=== PATIENT | female | born 1945 | race Caucasian/White ===

== ENCOUNTER 2016-08-29 00:22 | Observation (INO) | payer MEDICARE ==
--- OUTSIDE RECORDS SUMMARY | 2016-08-29 00:55 | XMS REPORT | Continuity of Care Document ---
:1945 Author Organization [facility] ([facility]) Address [address] [place] [address] Phone [phone] Care Team Providers Name Role Phone Franca Massey Primary Care Provider [phone] Source Comments This disclosure is being made pursuant to the Care Everywhere program, applicable federal and state laws, and may not contain all informaitonavailable regarding this patient.[facility] ([facility]) Active Allergies and Adverse Reactions Allergen Noted Date Severity Reactions Comments Minocycline 07/17/2015 OTHER Leaves black spots on her lips Current Medications Prescription Sig. Disp. Refills Start Date End Date Status levothyroxine 50 mcg Take 50 mcg by Active tablet mouth every morning before breakfast. omeprazole 40 mg enteric Take 40 mg by Active coated capsule mouth 2 times daily. oxybutynin 10 mg CR Take 10 mg by Active tablet mouth daily simvastatin 10 mg tablet Take 10 mg by Active mouth every evening aspirin 81 mg EC tablet Take 81 mg by Active mouth daily ferrous sulfate 325 mg Take 65 mg by Active (65 mg iron) tablet mouth 2 times daily. probiotic 20 billion cell Take 1 capsule Active capsule by mouth daily polyethylene glycol 3350 Take 17 g by Active 17 gram packet mouth daily as needed polyethylene glycol 3350 Take 17 g by Active (MIRALAX) 17 gram/dose mouth as powder needed. amLODIPine 5 mg tablet Take 5 mg by Active mouth daily. loperamide 2 mg capsule Take 2 mg by Active mouth as needed. hydroxychloroquine 200 mg Take 1.5 135 tablet 1 06/25/2016 Active tablet tablets (300 mg total) by mouth daily. 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 -low BP while on JADON inhibitor -Calcinosis left volar arm -Raynaud phenomenon on amlodipine -Esophageal dysmotility seen by GI at [facility] 2005 and most recently at the [facility] -Sclerodactyly - was recommended physical therapy at initial diagnosis but has not done any PT treatments. 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 -Pre-[facility] work-up and treatment ~02/27/2015 by Bharati Coffey -02/2015 [place] dermatology biopsy (read at [facility]) showing [id number]: skin, right pretibial region, punch biopsies (x2): Features consistent with nodular amyloidosis with associated focal osteoma cutis. -ANNA positive 1:640 (centromere pattern) -SPEP and UPEP: no apparent monoclonal spikes -Negative SS-A, SS-B. Scl-70, anit-kelsey, anti-madi 1, dsDNA, U1RNP antibodies. -LFT, CMP, BMP - within normal limits from 02/27/15 -TSH 4.02 (elevated) with free T4 0.88 (slightly low; normal starts at 0.89) -CBC: WBC 4.1 (low), Hgb normal 13.7, normal plt 204K -UA normal without proteinuria but showed 3+ leuk esterase -> patient treated with cipro. -Intralesional Kenalog injections with some improvement Carotid artery occlusion 08/15/2014 Cholesterol depletion 06/21/2013 Most Recent Encounters Date Type Specialty Providers Description 07/23/2016 Office Visit Med Rheumatology Default, Other Chief Comp: Patient Billg - Defo Reported Reason For Hieu, Visit Brayan Jesus MD 07/13/2016 Nurse Triage Med GI/Hepatology Leonor Vernon, Chief Comp: Post -op RN Follow-up Call 07/10/2016 [facility], Dx: Limited systemic Encounter MD Nilesh sclerosis Rita Conde MD 06/25/2016 Office Visit Pathology Maddi Rivera Chief Comp: Patient MD Ann Marie Reported Reason For Lab Services, Visit Pfp 06/25/2016 Office Visit Dermatology Maddi Rivera Dx: Raynaud's disease MD Ann Marie without gangrene (Primary Dx) 06/15/2016 Office Visit Heart and Vascular Kailee Casas Dx: At risk for MD Shon cardiac dysfunction (Primary Dx) 06/15/2016 Surgery Cardiology Demetroulis, Right Heart Mariangel Menendez MD Catheterization 06/02/2016 Office Visit Med Rheumatology Default, Other Dx: CREST syndrome Billg - Defo (Primary Dx) Brayan Hagen MD [place], MD Carlos Alberto Ocampo Petar, MD Immunizations Name Dates Previously Given Next Due Influenza, unspecified 04/17/2016 Social History Tobacco Use Types Packs/Day Years Used Date Former Smoker Cigarettes 0.25 Quit: 05/24/1981 Smokeless Tobacco: Never Used Tobacco Cessation:Counseling Given: Yes Comments: Alcohol Use Drinks/Week oz/Week Comments No Last Filed Vital Signs Vital Sign Reading Time Taken Blood Pressure 144/61 07/10/2016 11:32 AM WOOL SHEARING SUPERVISOR Pulse 69 07/10/2016 9:18 AM WOOL SHEARING SUPERVISOR Temperature 36.7 C (98.1 F) 07/10/2016 9:18 AM WOOL SHEARING SUPERVISOR Respiratory Rate 16 07/10/2016 11:32 AM WOOL SHEARING SUPERVISOR Height 1.575 m (5' 2.01") 06/15/2016 10:45 AM WOOL SHEARING SUPERVISOR Weight 46.499 kg (102 lb 8.2 oz) 06/15/2016 10:45 AM WOOL SHEARING SUPERVISOR Body Mass Index 18.74 06/15/2016 10:45 AM WOOL SHEARING SUPERVISOR Oxygen Saturation 98% 07/10/2016 11:32 AM WOOL SHEARING SUPERVISOR Plan of Care Date Type Specialty Providers Description 10/01/2016 Appointment Dermatology Maddi Rivera MD Chief Comp: Patient [address] [place] [address] Visit [phone] (Fax) 01/05/2017 Appointment Med Rheumatology Maynor Carcamo MD Chief Comp: Patient [address] [place] [address] Visit [phone] (Fax) Health Maintenance Due Date Last Done Comments Hepatitis B Vaccine (1 of 3 - Primary 1945 Series) Tdap Vaccine 1955 Lipid Disorder Screening 1962 Td Vaccine 1962 Mammogram 1984 Zoster Vaccine 2004 Osteoporosis Screening (DXA Bone Density) 2009 Pneumococcal Vaccine (1 of 2 - PCV13) 2009 Colonoscopy 11/17/2015 11/16/2005, 07/28/2004 Influenza Vaccine: Seasonal Completed 04/17/2016 Procedures from Last 3 Months Procedure Name Priority Date/Time Associated Comments Diagnosis ABSTRACTED BY Routine 07/15/2016 8:01 AM Limited systemic Results for this BILLING STAFF - NW WOOL SHEARING SUPERVISOR sclerosis procedure are in the results section. Results from Last 3 Months OTHER PROCEDURE (07/15/2016 8:01 AM) Rita Shi MD 07/15/20168:01 AM High Resolution Esophageal Manometry Esophageal Manometry/HREPT Procedure Note Procedure Date: 07/10/2016 Operation/Procedure: Esophageal Manometry/High Resolution Esophageal Pressure Topography (HREPT) Indications: 100 lb weight loss, dysphagia; scleroderma; nodular cutaneous amyloidosis. Previous esophageal surgery: unknown Endoscopic findings/date: 07/10/2016, Schatzki's B-ring at 34 cm; widely patent. Patulous GEJ. Free reflux of solid contents and bilious liquids. Stasis; large amount of liquid and solid in dependent distal esophagus. Macerated esophageal mucosa. Attending Staff: Gabi Conde MD Referring Physician: Aravind Oneill MD Description of Operation/Procedure: After an overnight fast, and calibration of the manometry system and application of 2% lidocaine gel to the nares, a 4 mm solid state manometry catheter was introduced through the nares into the esophagus and stomach. The catheter has 36 pressure channels spaced 1 cm apart, that create pressure image from pharynx to stomach The catheter was advanced until the distal 5 cm was in the stomach. Pressure sensors were located simultaneously across the UES, esophageal body and lower esophageal sphincter. The patient was placed in a 30 degree supine position. The probe was fixed to the nose and remained stationary throughout the recording. The recordings were made using [employer] Manoscan 360 high resolution manometry software. This software was used for graphic display and analysis and the tracing was also analyzed manually. After a rest period, and landmark evaluation: 10 wet swallows-Supine Any symptoms were recorded. After test completion, the probe was removed RESULTS: Esophagogastric Junction Assembly traversed diaphragm?: yes Morphology: Type I, PIP location: 44cm EGJ pressure (referenced to intragastric pressure): Expiratory: 5mmHgInspiratory: 12 mmHgMean 9 mmHg Relaxation: Mean IRP: 3.8mmHg Peristalsis SW 1 SW 2 SW 3 SW 4 SW 5 SW 6 SW 7 SW 8 SW 9 SW 10 IRP 4.4 3.4 4.2 5 2.5 2.7 5.8 4.7 3.8 1.8 DCI 0 0 0 0 0 0 0 0 0 0 DL NA NA NA NA NA NA NA NA NA NA Contractile Vigor F F F F F F F F F F Contraction Pattern $ NA NA NA NA NA NA NA NA NA NA Intrabolus Pressure Pattern * NA NA NA NA NA NA NA NA NA NA N=normal; F=failed (<100mmHg*s*cm); W=weak (<450mmHg*s*cm); H=hypercontractile (>=8000mmHg*s*cm) $ (need to be DCI>450mmHg*s*cm) I=intact; Fr=fragmented; P=premature * N=normal; CP=compartmentalized pressurization; PEP= panesophageal pressurization; EGJP=EGJ pressurization IMPRESSION Hypotensive LES with normal relaxation and absent peristalsis - consistent with "scleroderma esophagus". Signature Demetrius Olvera MD Fellow Physician Department of Internal Medicine Division of Gastroenterology and Hepatology Staff Comment Teaching Statement I have personally reviewed and interpreted the results of the exam,and agree with the findings and plan as documented. Gabi Dove MD Clinical Grease Refiner Operator Division of Gastroenterology-Hepatology Department of Internal Medicine [facility] SURGICAL PATHOLOGY EXAM (07/10/2016 10:53 AM) Component Value Range Case Report Surgical Pathology Case: [id number] Authorizing Provider:Nilesh Schmidt MDCollected: 07/10/2016 10:53 AM Ordering Location: [facility] Received: 07/10/2016 01:35 PM Diseases: Procedure Unit Pathologist: Yariel Pringle MD Specimens: A) - Esophagus, ESOPH B) - Stomach, Specify, GASTRIC C) - Small bowel, Specify Site, DUODENAL Diagnosis A.Esophagus, biopsy: Shyla esophagitis. PAS-D special stain highlights the fungal elements. B.Stomach, biopsy: Oxyntic and antral mucosa with mild reactive gastropathy. C.Duodenum, biopsy: Duodenal mucosa with focal non-specific duodenitis. I have personally reviewed this case and edited the report as necessary. Clinical Information 71 year old woman with scleroderma and nodular cutaneous amyloidosis.100 lb weight loss, dysphagia, diarrhea.EGD with solid and liquid contents in dependent portions of distal esophagus, stoma ch and duodenum; macerated appearing distal esophageal mucosa, nondistensible stomach, absent duodenal folds. 1.Distal esophagus; random mucosal biopsies. 2.Stomach; random biopsies. 3.Duodenum; random biopsies. Gross Description A.Received in formalin, in a container labeled [facility], hospital number, and "ESOPH", are four white-roblero soft tissue fragments, 0.2 to 0.5 cm in greatest dimension. Submitted in toto inA1. BNS/cja B.Received in formalin, in a container labeled [facility], hospital number, and "GASTRIC", are four roblero-pinksoft tissue fragments, 0.3 to 0.5 cm in greatest dimension. Submitted in toto in B1. BNS/cja C.Received in formalin, in a container labeled [facility], [facility] number, and "DUODENAL", are four roblero-pinksoft tissue fragments, 0.2 to 0.5 cm in greatest dimension. Submitted in toto in C1. BNS/cja Microscopic Description A-C. Microscopic examination performed and supports the diagnosis. Performed by:Yovani Haywood, , R3 I have personally reviewed this case and edited the report as necessary. Yariel Pringle MD Specimen Tissue - Small bowel, Specify Site ESOPHAGEAL HIGH RESOLUTION PRESSURE MANOMETRY BY UPPER ENDOSCOPY (07/10/2016 10: 40 AM) Nilesh Butterfield MD 07/10/2016 10:40 AM ESOPHAGEAL HIGH RESOLUTION PRESSURE MANOMETRY BY UPPER ENDOSCOPY GI/Hepatology Brief Procedure Note Date: 07/10/2016 Procedure: EGD Pre-procedure Diagnosis: 100 lb weight loss, dysphagia, diarrhea; scleroderma; nodular cutaneous amyloidosis. Proceduralist: Roxana. Anesthesia: versed 3 mg IV, fentanyl 25 mcg IV. The procedure sedation was given under my direction from 07/10/16 10:04 AM to 07/10/16 10:22 AM. Biopsy: Random duodenum, gastric and esophagus. Blood Loss: None. Post-procedure Diagnosis: 1.Esophagus: Schatzki's B-ring at 34 cm; widely patent. Patulous GEJ. Free reflux of solid contents and bilious liquids. Stasis; large amount of liquid and solid in dependent distal esophagus. Macerated esophageal mucosa. 2.Stomach: Large amount of retained solids and liquids, exam very limited. Erythematous gastric mucosa. Stomach did not distend with air insufflation. J-shaped stomach. Patent pylorus. 3.Duodenum: Diminished, scalloped duodenal folds. Linear erythema of scalloped folds. Post-procedure Plan: 1.High resolution pressure manometry now. 2.Follow-up in GI Clinic with Dr. Brian Huffman. Nilesh Schmidt MD TOTAL PROTEIN (06/25/2016 3:07 PM) Component Value Range Total Protein 6.0 6.0-8.0 g/dL Specimen Blood SERUM PROTEIN ELECTROPHORESIS (06/25/2016 3:07 PM) Component Value Range SPEP-Total Protein 6.0 6.0-8.0 g/dL SPEP-Albumin 3.3(L) 3.7-5.0 g/dL SPEP-Alpha1 Fraction 0.3 0.3-0.5 g/dL SPEP-Alpha2 Fraction 0.6 0.4-0.6 g/dL SPEP-Beta1 Fraction 0.4 g/dL SPEP-Beta2 Fraction 0.3 g/dL SPEP-Beta Fraction Total 0.7 0.6-0.9 g/dL SPEP-Gamma Fraction 1.1 0.5-1.3 g/dL SPEP-Monoclonal Protein 0.0 g/dL SPEP-Path Interp See TextComment: A monoclonal protein is not identified by serum protein electrophoresis. Gary Warner D.O., R2 Pathology Resident I have personally reviewed the patient studies and I agree with the above report. Oscar Orlando M.D, Ph.D., Oil Change Technician, Clinical Chemistry Laboratory, [facility] Specimen Blood CARDIAC CATHETERIZATION (06/15/2016 12:05 PM) Narrative Normal pulmonary arterial pressures Normal LV and RV filling pressures Normal cardiac output ECG - EKG 12 LEAD (06/15/2016 8:48 AM) Component Value Range ECG SEVERITY - BORDERLINE ECG - VENT. RATE 54 bpm RR 1111 ms P-R INTERVAL 132 ms QRSD INTERVAL 82 ms QT INTERVAL 428 ms QTC INTERVAL 406 ms P AXIS 70 degrees QRS AXIS 37 degrees T WAVE AXIS -10 degrees REPORT SINUS RHYTHM [Remains] BORDERLINE T ABNORMALITIES, INFERIOR LEADS [Insig. Chg.] NO SIGNIFICANT CHANGE Interpreting Physician: Jhonathan Gu MD EXTERNAL CBC (06/10/2016) Component Value Range Ext WBC Count 5 K/MM3 Ext RBC Count 3.7 M/MM3 Ext Hemoglobin 11.4 G/DL Ext Hematocrit 36.4 % Ext MCV (Mean Corpuscular Volume) 98.4 Ext MCH-Mean Corpuscular Hemoglobin 30.8 Ext MCHC-Mean Corpuscular Hgb Concentration 31.3 Ext Platelet Count 211 1-1001 K/MM3 Ext RDW-Red Cell Distribution Width 14.1 EXTERNAL CHEM 6 (06/10/2016) Component Value Range Ext Creatinine 0.60(A) 0.7-1.4 MG/DL Ext BUN 14 10-20 MG/DL Ext CO2 26.3 24-32 MEQ/L Ext Chloride 106 95-107 MEQ/L Ext Potassium 3.6 3.5-5.0 MEQ/L Ext Sodium 140 135-145 MEQ/L
[2016-08-29 01:07] LABS: Hematocrit 39.4 % (37.0-47.0); Hemoglobin 13.2 gm/dL (12.5-16.0); Mean Cell Volume 92.9 fl (78-100); Mean Corpuscular Hemoglobin 31.1 pg (27-31); Mean Corpuscular Hgb Conc 33.5 g/dl (32-36); Mean Platelet Volume 9.1 fl (6.0-9.5); Neutrophil # 9.8 K/mm3 (1.3-6.0); Neutrophil % 87.3 % (42-75.0); Platelet Count 226 K/mm3 (150-450); Red Blood Count 4.24 M/mm3 (4.2-5.4); Red Cell Distribution Width 12.8 % (11.5-14.0); White Blood Count 11.3 K/mm3 (4.0-10.5)
[2016-08-29] MEDS ORDERED: ALBUTEROL SULFATE/IPRATROPIUM 3 ML NEBU IH ONE (01:07)
[2016-08-29 01:21] LABS: Albumin * 3.9 gm/dl (3.4-5.0); Anion Gap 13.1 mmol/L (6.8-13.8); BUN/Creatinine Ratio 31.1 (9.0-21.6); Bilirubin, Total 0.4 mg/dL (0.0-1.1); Ca. Corrected For Albumin 9.4 mg/dL (8.4-10.2); Calcium * 9.6 mg/dL (7.9-10.9); Carbon Dioxide 28.1 mmol/L (24-32.6); Potassium 3.2 mmol/L (3.4-4.6); Total Protein 7.7 gm/dL (6.2-8.2)
[2016-08-29] MEDS ORDERED: NORMAL SALINE 1,000 ML IV ONE (02:43)
[2016-08-29] MEDS ORDERED: POTASSIUM CHLORIDE 100 ML IV ONE (02:45)
--- OUTSIDE RECORDS SUMMARY | 2016-08-29 02:56 | XMS REPORT | Continuity of Care Document ---
:1945 Author Organization [facility] ([facility]) Address [address] [place] [address] Phone [phone] Care Team Providers Name Role Phone Franca Massey Primary Care Provider [phone] Source Comments This disclosure is being made pursuant to the Care Everywhere program, applicable federal and state laws, and may not contain all informaitonavailable regarding this patient.[facility] ([facility]) Active Allergies and Adverse Reactions Allergen [...] followed most recently by GI at the [facility] but otherwise was not followed for this since 1992 when she was last seen by [facility] dermatology. -low BP while on JADON inhibitor -Calcinosis left volar arm -Raynaud phenomenon on amlodipine -Esophageal dysmotility seen by GI at [facility] 2005 and most recently at the [facility] -Sclerodactyly - was recommended physical therapy at initial diagnosis but has not done any PT treatments. 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 -Pre-[facility] work-up and treatment ~02/27/2015 by Bharati Coffey -02/2015 [place] dermatology biopsy (read at [facility]) showing [id number]: skin, right pretibial region, punch biopsies (x2): [...] Comp: Post -op RN Follow-up Call 07/10/2016 [facility] Med GI/Hepatology [facility], Dx: Limited systemic Encounter MD Nilesh sclerosis [...] Taken Blood Pressure 144/61 07/10/2016 11:32 AM SHIPPING ROOM SUPERVISOR Pulse 69 07/10/2016 9:18 AM SHIPPING ROOM SUPERVISOR Temperature 36.7 C (98.1 F) 07/10/2016 9:18 AM SHIPPING ROOM SUPERVISOR Respiratory Rate 16 07/10/2016 11:32 AM SHIPPING ROOM SUPERVISOR Height 1.575 m (5' 2.01") 06/15/2016 10:45 AM SHIPPING ROOM SUPERVISOR Weight 46.499 kg (102 lb 8.2 oz) 06/15/2016 10:45 AM SHIPPING ROOM SUPERVISOR Body Mass Index 18.74 06/15/2016 10:45 AM SHIPPING ROOM SUPERVISOR Oxygen Saturation 98% 07/10/2016 11:32 AM SHIPPING ROOM SUPERVISOR Plan of Care Date Type Specialty Providers Description 10/01/2016 Appointment Dermatology Maddi Rivera MD Chief Comp: Patient [address] [place] [address] Visit [phone] (Fax) 01/05/2017 Appointment Med Rheumatology Maynor Carcamo MD Chief Comp: Patient [address] [place] [address] Visit [phone] (Fax) Health Maintenance Due Date Last Done [...] Results for this BILLING STAFF - NW SHIPPING ROOM SUPERVISOR sclerosis procedure are in the results [...] the recording. The recordings were made using [employer] Manoscan 360 high resolution manometry software. This [...] plan as documented. Gabi Dove MD Clinical Roller Machine Operator Division of Gastroenterology-Hepatology Department of Internal Medicine [facility] SURGICAL PATHOLOGY EXAM (07/10/2016 10:53 AM) Component Value Range Case Report Surgical Pathology Case: [id number] Authorizing Provider:Nilesh Schmidt MDCollected: 07/10/2016 10:53 AM Ordering Location: [facility] Received: 07/10/2016 01:35 PM Diseases: Procedure Unit [...] A.Received in formalin, in a container labeled [facility], hospital number, and "ESOPH", are four white-roblero soft tissue fragments, 0.2 to 0.5 cm in greatest dimension. Submitted in toto inA1. BNS/cja B.Received in formalin, in a container labeled [facility], hospital number, and "GASTRIC", are four roblero-pinksoft tissue fragments, 0.3 to 0.5 cm in greatest dimension. Submitted in toto in B1. BNS/cja C.Received in formalin, in a container labeled [facility], [facility] number, and "DUODENAL", are four roblero-pinksoft tissue [...] the above report. Oscar Orlando M.D, Ph.D., Tabber, Clinical Chemistry Laboratory, [facility] Specimen Blood CARDIAC CATHETERIZATION (06/15/2016 12:05 PM) [...]
--- NOTE | 2016-08-29 03:01 | ERNOTE ---
Medical Problem HPI - Narrative Date of Service: 08/29/16 - General Chief Complaint: Nausea/Vomiting Time Seen by Provider: 08/29/16 00:30 Source: patient, family Exam Limitations: no limitations - Immun/Allergies/Home Medications Immunizations: IMMUNIZATION HX Immunizations Up to Date Yes History of Influenza Vaccine Yes Hx Pneumococcal Vaccination Yes Allergies/Adverse Reactions: Allergies minocycline Adverse Reaction (Severe, Verified 04/19/16 09:50) Black spots inside mouth Home Medications: HOME MEDICATIONS Aspirin [Aspirin EC] 81 mg PO DAILY 04/16/16 [Last Taken Unknown] Ferrous Sulfate [Iron] 65 mg PO BID 04/16/16 [Last Taken Unknown] Hydroxychloroquine Sulfate [Plaquenil] 300 mg PO DAILY 04/16/16 [Last Taken Unknown] Levothyroxine Sodium [Synthroid] 88 mcg PO DAILY 04/16/16 [Last Taken Unknown] Loperamide HCl [Imodium] 2 mg PO QID PRN 04/16/16 [Last Taken Unknown] Omeprazole 40 mg PO BID 04/16/16 [Last Taken Unknown] Oxybutynin Chloride [Ditropan Xl] 10 mg PO DAILY 04/16/16 [Last Taken Unknown] Saccharomyces Boulardii [Probiotic] 250 mg PO DAILY 04/16/16 [Last Taken Unknown ] Simvastatin [Zocor] 10 mg PO DAILY 04/16/16 [Last Taken Unknown] amLODIPine BESYLATE [Norvasc] 5 mg PO DAILY 04/16/16 [Last Taken Unknown] Polyethylene Glycol 3350 [Miralax] 17 gm PO DAILY PRN 08/29/16 [Last Taken Unknown] - Pain Score Pain Score #1 Pain Score: 5 - History of Present History Narrative: Patient is a 71 yo female here with family for evaluation of vomiting, onset earlier today. 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 last one was about 2 months ago, patient was admitted here. Patient denies fevers, chills, melena. Patient feels like she did last visit. Date (Duration): 08/28/16 Time (Timing): 08:00 Timing: constant, getting worse Severity: moderate Modifying Factors - (Improves): Present: other - nothing really improves vomiting and abd pain Modifying Factors - (Worsens): Present: eating Review of Systems - Narrative Narrative: Patient reports vomiting large amounts of liquids. Patient will be started on IV NORMAL SALINE AND POTASSIUM RIDER. Family informed of need for ct scan. - Review of Systems Constitutional: Present: recent illness, fever, weakness, malaise EYE: Present: no symptoms reported ENT: Present: no symptoms reported Respiratory: Present: no symptoms reported. Absent: orthopnea, wheezing Cardiology: Present: no symptoms reported Gastrointestinal/Abdominal: Present: no symptoms reported Genitourinary: Present: no symptoms reported Musculoskeletal: Present: no symptoms reported Skin: Present: no symptoms reported Neurological: Present: no symptoms reported Endocrine: Present: no symptoms reported Hematologic/Lymphatic: Present: no symptoms reported Psych: Present: no symptoms reported All Other Systems: All systems neg except as marked - Patient's Past Medical History Patient History - Medical: Anemia, GERD, Hypothyroidism, Other Patient History - Cardiac/Respiratory: Hyperlipidemia Patient History - Cancer: Breast Patient History - Surgical Procedures: Cancer Surgery, Other Patient History - Other: None - Family History Sister Family History - Medical: Diabetes Type 2 Insulin Dependent, Hypothyroidism Family History - Cardiac/Respiratory: CVA/Stroke Mother Family History - Cardiac/Respiratory: Coronary Heart Disease - Social History Living Situations: spouse Abuse History: No History of abuse Psych History: No pertinent hx Does anyone smoke in the home?: No Smoking Status: Never smoker Alcohol Use: none Drug Use: none - Immunizations Immunizations Up to Date: Yes Hx Pneumococcal Vaccination: Yes History of Influenza Vaccine: Yes Physical Exam - Physical Exam General Appearance: Present: alert, cachetic, irritable Eye Exam: Normal inspection: bilateral, PERRL: bilateral, EOMI: bilateral Ears, Nose, Throat: Present: normal ENT inspection Neck: Present: normal inspection, nontender Respiratory: Present: no respiratory distress, normal breath sounds, no accessory muscle use, chest nontender Peripheral Pulses: N=norm/S=strong/W=weak/B=bound/A=absent: Carotid (R): Normal , Carotid (L): Normal Gastrointestinal/Abdominal: Present: nontender, soft, abnormal bowel sounds, distended. Absent: guarding Rectal Exam: Present: other - very little stool in the rectum, estella consistency estella colored, heme neg per hemocult Back Exam: Present: normal inspection, normal range of motion, CVA tenderness (R ), CVA tenderness (L) Extremity Exam: Present: normal inspection Neurological Exam: Present: alert, oriented, normal mood/affect, no motor/ sensory deficits DTR: N=norm/NB=norm/brisk/A=abs/DD=dull/dimin/HC=hyperactive: Knee (R): Normal, Ankle (L): Normal Skin Exam: Present: normal color, warm/dry Lymphatic Exam: Present: no adenopathy Pelvic Exam: Present: deferred ED Progress - Date and Time Seen: Date and Time: Patient seen on arrival 08/29/16 03:42 Patient stable for admission to Med Surg for Observation 08/29/16 03:48 - Vital Signs Patient's Vital Signs:: I have reviewed the patient's vital signs. Vital Signs: Vital Signs 08/29/16 08/29/16 00:22 00:47 Temperature 36.4 C L Pulse Rate 74 67 Respiratory 14 14 Rate Blood Pressure 140/84 O2 Sat by Pulse 100 Oximetry - EKG EKG: NSR EKG read: Reviewed by me - X-Ray X-Ray #1 X-Ray: no acute cardiopulm disease noted Interpretation: Reviewed by me X-Ray #3 X-Ray: abdomen - notable distended bowel ort - Progress/Reassessment Chief Complaint: Nausea/Vomiting Progress:: Improved Plan - Plan Plan: Called La[facility] Peguero to admit, case was discussed with Dr. Castillo, we can hold off on CT of abdomen and pelvis. Patient's radiology report reads: Lung bases are clear, Moderat to severe stool retention. Air-filled distended loops of bowel noted with scattered air fluid levels. Po pneumoperitoneum. No signs of mass or mass effect. No obvious urolithiasis. Degernative changes. Impression: stool retention with a non specific bowel gas patterns. Report by Dr. Ray Monsivais DO. Discussed case with Laury Peguero: CT report sent to floor: no transition point is identified, there are loops of dilated small bowel : small bowel obstruction, no pneumoperitoneum, no free air. Departure - Departure Clinical Impression: abdominal [place] , Hypokalemia Bowel obstruction Qualifiers: Intestinal obstruction type: unspecified ileus Qualified Code(s): K56.7 - Ileus , unspecified Condition: Fair
[2016-08-29] MEDS ORDERED: ONDANSETRON HCL/PF 2 MG/ML VIAL IV PRN (04:51)
--- NOTE | 2016-08-29 04:53 | HP ---
Chief Complaint - Chief Complaint Date of Service: 08/29/16 Time of Service: 04:53 Chief Complaint: Abdominal Pain, N/V. Source of HPI- Pt; reliable, ER provider notes. History of Present Illness: Ms. Yousif is a 71-yr-old [place] pt of H of : Anemia, Ayon's Esophagus, Breast Ca, CAD,CREST, Depression, GERD, HLD, HTN, Hiatal Hernia & Rectal Prolapse. Pt came to the ED tonight following nausea and vomiting episode that had begun at 6.00 pm on 08/28. She states that she vomited about 5-6 times prior to choosing to come to the [facility] ER. Her last good meal was around lunch time on 08/28. She reports noting undigested food contents with the first vomitus. The n/v was accompanied with Upper abdominal pain. She report having lose to watery bowel movements. Off note, she was admitted on 04/16/16 for similar symptoms and was found to have SBO, and managed with conservative treatment. Past abdominal surgery shows she had rectal surgery in 2003 for rectal prolapse. During evaluation at ED [facility], the CT of the abdomen obtained showed SBO. She will need to be admitted inpatient for a minimum of two midnights or more due to complications that can arise with SBO such as bowel necrosis or perforation and in the event that she may need surgical intervention. - Patient's Past Medical History Patient History - Medical: Anemia, Depression, GERD, Hypothyroidism, Other - CREST Syndrome, Patient History - Cardiac/Respiratory: Hyperlipidemia Patient History - Cancer: Breast Patient History - Surgical Procedures: Cancer Surgery, Other Patient History - Other: None - Family History Sister Family History - Medical: Diabetes Type 2 Insulin Dependent, Hypothyroidism Family History - Cardiac/Respiratory: CVA/Stroke Father Family History - Medical: Mother Family History - Medical: Family History - Cardiac/Respiratory: Coronary Heart Disease - Social History Living Situations: spouse Abuse History: No History of abuse Psych History: No pertinent hx Does anyone smoke in the home?: No Smoking Status: Never smoker Have you smoked in the past 12 months: No Alcohol Use: none Drug Use: none - Immunizations Immunizations Up to Date: Yes Hx Pneumococcal Vaccination: Yes History of Influenza Vaccine: Yes Review Of Systems (GEN) - Review of Systems Generalized/Overall Review: Present: Weakness. Absent: Chills, Fever, Malaise, Diaphoresis, Weight loss EENTM: Absent: Double Vision, Nose Congestion, Throat Swelling Respiratory: Absent: Cough, Shortness of Breath Cardiac: Absent: Chest Pain, Edema, Palpitations Abdominal: Present: Nausea, Vomiting, Abdominal Pain, Constipation, Diarrhea. Absent: Bright blood from rectum Genitourinary: Absent: Burning, Itching, Urgency Musculoskeletal: Absent: Joint Pain, Back Pain Neurological: Present: Weakness. Absent: Headache, Anxiety, Depressed Skin: Absent: Dryness, Lesions Endocrine: Present: Intolerance to Cold. Absent: Increased Thirst Misc: All systems neg except as marked Immunizations: IMMUNIZATION HX Immunizations Up to Date Yes History of Influenza Vaccine Yes Hx Pneumococcal Vaccination Yes Allergies/Adverse Reactions: Allergies Allergy/AdvReac Type Severity Reaction Status Date / Time minocycline AdvReac Severe Black Verified 04/19/16 09:50 spots inside mouth Home Medications: HOME MEDICATIONS Aspirin [Aspirin EC] 81 mg PO DAILY 04/16/16 [Last Taken Unknown] Ferrous Sulfate [Iron] 650 mg PO DAILY 04/16/16 [Last Taken Unknown] Hydroxychloroquine Sulfate [Plaquenil] 300 mg PO DAILY 04/16/16 [Last Taken Unknown] Levothyroxine Sodium [Synthroid] 88 mcg PO DAILY 04/16/16 [Last Taken Unknown] Loperamide HCl [Imodium] 2 mg PO QID PRN 04/16/16 [Last Taken Unknown] Omeprazole 40 mg PO BID 04/16/16 [Last Taken Unknown] Oxybutynin Chloride [Ditropan Xl] 10 mg PO BID 04/16/16 [Last Taken Unknown] Saccharomyces Boulardii [Probiotic] 250 mg PO DAILY 04/16/16 [Last Taken Unknown ] Simvastatin [Zocor] 10 mg PO DAILY 04/16/16 [Last Taken Unknown] amLODIPine BESYLATE [Norvasc] 5 mg PO DAILY 04/16/16 [Last Taken Unknown] Bifidobacterium Infantis [Align] 4 mg PO DAILY 08/29/16 [Last Taken Unknown] Fluticasone Propionate [Flonase] 2 spray NS DAILY 08/29/16 [Last Taken Unknown] Polyethylene Glycol 3350 [Miralax] 17 gm PO DAILY 08/29/16 [Last Taken Unknown] Exam - Exam Vital Signs: Vital Signs - Last Taken Temp 36.8 C 08/29/16 04:07 Pulse 76 08/29/16 04:07 Resp 18 08/29/16 04:07 BP 134/64 08/29/16 04:07 Pulse Ox 96 08/29/16 04:07 Constitutional: Present: Alert, Oriented x3, Mild distress ENT Exam: Present: normal ENT inspection, hearing grossly normal, dry mucous membranes. Absent: nasal congestion, nasal drainage Eye Exam: bilateral eye: normal inspection, PERRL Neck: Present: full range of motion, supple, normal inspection Back Exam: Present: no CVA tenderness Breasts: Present: Exam deferred Respiratory: Present: lungs clear, no accessory muscle use, No wheezing Cardiovascular/Chest: Present: regular rate, rhythm, no chest tenderness, no edema, no murmur Abdomen: Present: Normal bowel sounds, soft, tender - Upper abdomen /Rectal: Present: Exam deferred Extremity: Present: non-tender, normal inspection, no pedal edema Skin Exam: Present: warm/dry, no cyanosis Lymphatic: Present: no adenopathy Neurologic: Present: alert, normal mood/affect, oriented x 3, depressed affect. Absent: motor weakness Appearance: Present: appropriate appearance, appropriate insight Eye contact: Present: good eye contact, normal speech Thoughts: Present: normal thought pattern, no apparent hallucination Diagnostic Studies: Laboratory Results WBC 11.3 K/mm3 (4.0-10.5) H 08/29/16 00:34 RBC 4.24 M/mm3 (4.2-5.4) 08/29/16 00:34 Hgb 13.2 gm/dL (12.5-16.0) 08/29/16 00:34 Hct 39.4 % (37.0-47.0) 08/29/16 00:34 MCV 92.9 fl (78-100) 08/29/16 00:34 MCH 31.1 pg (27-31) H 08/29/16 00:34 MCHC 33.5 g/dl (32-36) 08/29/16 00:34 RDW 12.8 % (11.5-14.0) 08/29/16 00:34 Plt Count 226 K/mm3 (150-450) 08/29/16 00:34 MPV 9.1 fl (6.0-9.5) 08/29/16 00:34 Immature Gran % (Auto) 0.40 % (0.001-0.429) 08/29/16 00:34 Immature Gran # (Auto) 0.05 K/mm3 (0.000-0.0310) H 08/29/16 00:34 Neutrophils % 87.3 % (42-75.0) H 08/29/16 00:34 Lymphocytes % 9.2 % (20-51) L 08/29/16 00:34 Monocytes % 2.8 % (0.0-9) 08/29/16 00:34 Eosinophils % 0.0 % (0.0-3.0) 08/29/16 00:34 Basophils % 0.3 % (0.0-1.0) 08/29/16 00:34 Nucleated RBC % 0.0 k/mm3 (0-1) 08/29/16 00:34 Neutrophils # 9.8 K/mm3 (1.3-6.0) H 08/29/16 00:34 Lymphocytes # 1.0 k/mm3 (1.5-3.5) L 08/29/16 00:34 Monocytes # 0.3 k/mm3 (0.0-1.0) 08/29/16 00:34 Eosinophils # 0.0 k/mm3 (0.0-0.7) 08/29/16 00:34 Absolute Basophils 0.0 k/mm3 (0.0-0.1) 08/29/16 00:34 Sodium 140 mmol/L (132-142) 08/29/16 00:33 Plasma Sodium 140 mmol/L (130-142) 08/29/16 00:33 Potassium 3.2 mmol/L (3.4-4.6) L 08/29/16 00:33 Chloride 102 mmol/L (97-106) 08/29/16 00:33 Carbon Dioxide 28.1 mmol/L (24-32.6) 08/29/16 00:33 Anion Gap 13.1 mmol/L (6.8-13.8) 08/29/16 00:33 BUN 23 mg/dL (3-23) D 08/29/16 00:33 Creatinine 0.74 mg/dL (0.4-1.4) 08/29/16 00:33 Est GFR (Non-Af Amer) 82 mL/min (60-130) D 08/29/16 00:33 BUN/Creatinine Ratio 31.1 (9.0-21.6) H 08/29/16 00:33 Random Glucose 121 mg/dL (70-110) H 08/29/16 00:33 Calcium 9.6 mg/dL (7.9-10.9) 08/29/16 00:33 Calcium Adj for Albumin 9.4 mg/dL (8.4-10.2) 08/29/16 00:33 Total Bilirubin 0.4 mg/dL (0.0-1.1) 08/29/16 00:33 AST 30 U/L (0-48) 08/29/16 00:33 ALT 34 U/L (19-67) 08/29/16 00:33 Alkaline Phosphatase 107 U/L (50-170) 08/29/16 00:33 Total Protein 7.7 gm/dL (6.2-8.2) 08/29/16 00:33 Albumin 3.9 gm/dl (3.4-5.0) 08/29/16 00:33 Amylase 59 U/L (25-115) 08/29/16 00:33 Lipase 206 U/L (73-393) 08/29/16 00:33 Stool Occult Blood Negative 08/29/16 02:19 Assessment/Plan - Assessment/Plan (1) Small bowel obstruction Assessment: pt presented with nausea, vomiting, abdominal pain. She has no abd distention as such. However, CT showed SBO. I spoke with Dr. Castillo and is aware about pt's hospital admission. He is okay with managing the pt nonoperativley for now with: NG to LIS, NPO, Electrolyte replacement, antiemetic and pain mgt. He will examine pt this morning. CBC in am. Problem: Acute (2) Hypokalemia Assessment: Provide IVF replenishing with K. BMP in am. Problem: Acute (3) GERD (gastroesophageal reflux disease) Problem: Chronic (4) Depression Problem: Chronic
[2016-08-29] MEDS ORDERED: HYDROmorphone HCL 1 MG/ML DISP.SYRIN IV PRN (04:57)
[2016-08-29 05:18] LABS: Hematocrit 36.4 % (37.0-47.0); Hemoglobin 12.5 gm/dL (12.5-16.0); Mean Cell Volume 91.5 fl (78-100); Mean Corpuscular Hemoglobin 31.4 pg (27-31); Mean Corpuscular Hgb Conc 34.3 g/dl (32-36); Mean Platelet Volume 8.8 fl (6.0-9.5); Neutrophil # 9.9 K/mm3 (1.3-6.0); Neutrophil % 87.8 % (42-75.0); Platelet Count 197 K/mm3 (150-450); Red Blood Count 3.98 M/mm3 (4.2-5.4); Red Cell Distribution Width 12.6 % (11.5-14.0); White Blood Count 11.3 K/mm3 (4.0-10.5)
[2016-08-29 05:25] LABS: BUN/Creatinine Ratio 37.5 (9.0-21.6); Calcium * 8.8 mg/dL (7.9-10.9); Carbon Dioxide 26.2 mmol/L (24-32.6); Estimated Creat Clear 62.8; Potassium 3.2 mmol/L (3.4-4.6)
[2016-08-29] MEDS ORDERED: TETRACAINE/BENZOCAINE/BUTAMBEN 56 SPRAY BTL TP ONE (05:51)
[2016-08-29] MEDS ORDERED: TETRACAINE/BENZOCAINE/BUTAMBEN 20 SPRAY BTL TP ONE (05:52)
[2016-08-29] MEDS: POTASSIUM CHLORIDE 20 MEQ in DEXTROSE 5%-NORMAL SALINE 990 ML IV SCH (06:31)
[2016-08-29] MEDS: PANTOPRAZOLE SODIUM 40 MG in NORMAL SALINE 100 ML IV SCH ×2 (06:38→17:43)
[2016-08-29] MEDS: amLODIPine BESYLATE 5 MG TABLET PO SCH (08:28)
[2016-08-29] MEDS: HYDROXYCHLOROQUINE SULFATE 200 MG TABLET PO SCH (08:28)
[2016-08-29] MEDS: FLUTICASONE PROPIONATE 120 SPRAY INHALER NS SCH (08:32)
[2016-08-29 11:32] LABS: Urine Bilirubin Negative (NEGATIVE); Urine Blood Negative /ul (NEGATIVE); Urine Ketone Negative (NEGATIVE); Urine Nitrite Negative (NEGATIVE); Urine Protein 15 mg/dL (NEGATIVE); Urine Specific Gravity 1.025 SP.GR. (1.005-1.010); Urine Urobilinogen Normal (NORMAL); Urine pH 5.5 pH (5.0-7.0)
[2016-08-29 11:44] LABS: Urine Appearance Slightly Cloudy; Urine Color Yellow
[2016-08-29 11:45] LABS: Urine Bacteria 1+; Urine Hyaline Cast >25 /LPF; Urine RBC TRACE /hpf (0-5); Urine WBC 0-5 /hpf (0-5)
[2016-08-29] MEDS ORDERED: MINERAL OIL 1 ENEMA BTL RC ONE (13:04)
--- NOTE | 2016-08-29 13:21 | CONS ---
[facility] - General Date of Service: 08/29/16 Narrative: Ask to see this patient for a possible small bowel obstruction. Was admitted 5-6 months ago for a similar episode. Presented to ER with protracted episodes of nausea and vomiting yesterday. AXR showed stool retention with nonspecific bowel gas pattern. CT abd was a limited study. SBO could not be excluded. Today she has had six watery stools and is passing flatus. She has no abdominal pain and says her abdominal distention has resolved. Source: patient, RN/MD Exam Limitations: no limitations - History of Present Illness Allergies/Adverse Reactions: Allergies minocycline Adverse Reaction (Severe, Verified 04/19/16 09:50) Black spots inside mouth Home Medications: Home Medications Medication Instructions Recorded Last Taken Aspirin [Aspirin EC] 81 mg PO DAILY 04/16/16 Unknown Ferrous Sulfate [Iron] 650 mg PO DAILY 04/16/16 Unknown Hydroxychloroquine Sulfate 300 mg PO DAILY 04/16/16 Unknown [Plaquenil] Levothyroxine Sodium [Synthroid] 88 mcg PO DAILY 04/16/16 Unknown Loperamide HCl [Imodium] 2 mg PO QID PRN 04/16/16 Unknown Omeprazole 40 mg PO BID 04/16/16 Unknown Oxybutynin Chloride [Ditropan Xl] 10 mg PO BID 04/16/16 Unknown Saccharomyces Boulardii [Probiotic] 250 mg PO DAILY 04/16/16 Unknown Simvastatin [Zocor] 10 mg PO DAILY 04/16/16 Unknown amLODIPine BESYLATE [Norvasc] 5 mg PO DAILY 04/16/16 Unknown Bifidobacterium Infantis [Align] 4 mg PO DAILY 08/29/16 Unknown Fluticasone Propionate [Flonase] 2 spray NS DAILY 08/29/16 Unknown Polyethylene Glycol 3350 [Miralax] 17 gm PO DAILY 08/29/16 Unknown - Patient's Past Medical History Patient History - Medical: Anemia, Depression, GERD, Hypothyroidism, Other - CREST Syndrome, Patient History - Cardiac/Respiratory: Hyperlipidemia Patient History - Cancer: Breast Patient History - Surgical Procedures: Cancer Surgery, Other Patient History - Other: None - Family History Sister Family History - Medical: Diabetes Type 2 Insulin Dependent, Hypothyroidism Family History - Cardiac/Respiratory: CVA/Stroke Father Family History - Medical: Mother Family History - Medical: Family History - Cardiac/Respiratory: Coronary Heart Disease - Social History Living Situations: spouse Abuse History: No History of abuse Psych History: No pertinent hx Does anyone smoke in the home?: No Smoking Status: Never smoker Have you smoked in the past 12 months: No Alcohol Use: none Drug Use: none - Immunizations Immunizations Up to Date: Yes Hx Pneumococcal Vaccination: Yes History of Influenza Vaccine: Yes Procedures EXCISE AXILLARY NODE (06/27/02) LOCAL EXCIS BREAST LES (06/27/02) Medications - Medications Current Medications: Current Medications Amlodipine Besylate (Norvasc) 5 mg PO DAILY DIANE Stop: 09/28/16 09:01 Last Admin: 08/29/16 08:28 Dose: 5 mg Fluticasone Propionate (Flonase) 2 spray NS DAILY DIANE Stop: 09/28/16 09:01 Last Admin: 08/29/16 08:32 Dose: Not Given Hydroxychloroquine Sulfate (Plaquenil) 300 mg PO DAILY DIANE Stop: 09/28/16 09:01 Last Admin: 08/29/16 08:28 Dose: 300 mg Potassium Chloride 20 meq/ (Dextrose/Sodium Chloride) 1,000 mls @ 125 mls/hr IV .Q8H DIANE Stop: 09/28/16 05:31 Last Admin: 08/29/16 06:31 Dose: 125 mls/hr Pantoprazole Sodium 40 mg/ (Sodium Chloride) 100 mls @ 400 mls/hr IV Q12H DIANE Stop: 09/28/16 05:31 Last Infusion: 08/29/16 06:53 Dose: Infused Review of Systems - Review of Systems Abdominal: Present: Other - She c/o recurrent rectal prolapse. Physical Examination - Exam Vital Signs: Vital Signs - Last Taken Temp 37.3 C 08/29/16 10:32 Pulse 73 08/29/16 10:32 Resp 16 08/29/16 10:32 BP 116/62 08/29/16 10:32 Pulse Ox 97 08/29/16 10:32 O2 Oxygen Delivery Method Room Air Constitutional: Present: Alert, Oriented x3, Cooperative, No distress ENT Exam: Present: normal ENT inspection Neck: Present: normal inspection Respiratory: Present: no respiratory distress, no accessory muscle use Abdomen: Present: Normal bowel sounds, soft, nontender, nondistended, no rebound tenderness, no hepatospenomegaly, no masses /Rectal: Present: Other - CT report states a large post-anal decubitus ulcer. There is none present. Her anus is patulous, however, there is no current rectal prolapse. It is likely that she was prolapsed during the CT scan. Extremity: Present: normal inspection, no pedal edema Skin Exam: Present: normal color, warm/dry Neurologic: Present: no motor/sensory deficits - Results and Findings: Lab/Microbiology results last 24 hrs: Abnormal/Pending Laboratory Last 24 HRS 08/29/16 08/29/16 08/29/16 11:25 05:16 05:16 WBC 11.3 H RBC 3.98 L Hct 36.4 L MCH 31.4 H Neutrophils % 87.8 H Lymphocytes % 8.1 L Neutrophils # 9.9 H Lymphocytes # 0.9 L Potassium 3.2 L BUN 24 H BUN/Creatinine Ratio 37.5 H Urine Protein 15 H Ur Epithelial Cells 5-10 H Urine Bacteria 1+ H Hyaline Casts >25 H - Assessments/Findings (1) Rectal prolapse Diagnosis(s): Pt has made a remarkable clinical turnaround overnight. Her scleroderma may be playing a significant role here including: pseudo-obstruction, constipation, megacolon, and especially rectal prolapse. She is likely having bypass diarrhea given the extent of her retained stool on AXR. Recommend fleets enemas. detention Miralax may be of benefit. Problem: Acute
[2016-08-29] MEDS ORDERED: MAGNESIUM CITRATE 300 ML BTL PO ONE (15:01)
[2016-08-29] MEDS ORDERED: CALCIUM CARBONATE 500 MG TAB.CHEW PO PRN (20:07)
[2016-08-29] MEDS ORDERED: POTASSIUM CHLORIDE 20 MEQ TABLET.SA PO ONE (23:10)
[2016-08-30] MEDS: PANTOPRAZOLE SODIUM 40 MG in NORMAL SALINE 100 ML IV SCH (05:00)
[2016-08-30 06:22] LABS: Hematocrit 31.3 % (37.0-47.0); Hemoglobin 10.4 gm/dL (12.5-16.0); Mean Cell Volume 93.7 fl (78-100); Mean Corpuscular Hemoglobin 31.1 pg (27-31); Mean Corpuscular Hgb Conc 33.2 g/dl (32-36); Mean Platelet Volume 9.1 fl (6.0-9.5); Neutrophil # 1.5 K/mm3 (1.3-6.0); Neutrophil % 49.4 % (42-75.0); Platelet Count 192 K/mm3 (150-450); Red Blood Count 3.34 M/mm3 (4.2-5.4); Red Cell Distribution Width 12.9 % (11.5-14.0); White Blood Count 3.1 K/mm3 (4.0-10.5)
[2016-08-30 06:26] VITALS: BP 98/53
[2016-08-30 06:30] LABS: Anion Gap 9.7 mmol/L (6.8-13.8); Calcium * 8.3 mg/dL (7.9-10.9); Estimated Creat Clear 80.4; Potassium 3.7 mmol/L (3.4-4.6)
[2016-08-30] MEDS: POTASSIUM CHLORIDE 20 MEQ in DEXTROSE 5%-NORMAL SALINE 990 ML IV SCH (07:18)
--- NOTE | 2016-08-30 09:31 | DS ---
(1) Bowel obstruction Problem: Ruled-out Qualifiers: Intestinal obstruction type: unspecified ileus Qualified Code(s): K56.7 - Ileus, unspecified (2) Hypokalemia Problem: Acute (3) Rectal prolapse Problem: Chronic (4) Small bowel obstruction Problem: Ruled-out (5) Depression Problem: Chronic Qualifiers: Depression Type: unspecified Qualified Code(s): F32.9 - Major depressive disorder, single episode, unspecified (6) GERD (gastroesophageal reflux disease) Problem: Chronic Qualifiers: Esophagitis presence: without esophagitis Qualified Code(s): K21.9 - Gastro -esophageal reflux disease without esophagitis (7) Scleroderma involving bowel Problem: Chronic Description of Stay: Date of admission: 08/29/16 Date of discharge: 08/30/16 Verónica is a 71 year old female who presented to the er with n/v and ab pain. ct of the abdomen/pelvis showed SBO. Patient was admitted to the unit for further management and workup. she was seen by general surgery, who felt her symptoms were due more to complications of her scleroderma, including pseudo- obstruction, constipation and rectal prolapse - including having bypass diarrhea. patient was given medication to relieve her significant constipation. overnight, her symptoms improved significantly and she was discharged home on 08/30/16 with instructions for a bowel management plan. Procedures Performed: none Discharge Disposition: Home self care Disposition: Home self-care Condition: Stable Discharge Activity: Activity as tolerated Discharge Diet: General/regular food Referrals: Franca Bajwa MD [Primary Care Provider] - Consultation Done:: General Surgery Problem Oriented Discharge Instructions to Patient/Family: Constipation, Adult , [id number] Additional Patient Instructions (free text): Push water. Normal BMs should be pudding consistency. start miralax in the morning - hold for today. hold miralax in the future for severe diarrhea. add ensure or boost to your diet - try blending it with ice cream to make a malt or shake. follow up with dr bajwa in 1-2 weeks. Complete Home Medications List: Complete Home Medication List: Aspirin [Aspirin EC] 81 mg PO DAILY 04/16/16 Ferrous Sulfate [Iron] 650 mg PO DAILY 04/16/16 Hydroxychloroquine Sulfate [Plaquenil] 300 mg PO DAILY 04/16/16 Levothyroxine Sodium [Synthroid] 88 mcg PO DAILY 04/16/16 Omeprazole 40 mg PO BID 04/16/16 Oxybutynin Chloride [Ditropan Xl] 10 mg PO BID 04/16/16 Saccharomyces Boulardii [Probiotic] 250 mg PO DAILY 04/16/16 Simvastatin [Zocor] 10 mg PO DAILY 04/16/16 amLODIPine BESYLATE [Norvasc] 5 mg PO DAILY 04/16/16 Bifidobacterium Infantis [Align] 4 mg PO DAILY 08/29/16 Fluticasone Propionate [Flonase] 2 spray NS DAILY 08/29/16 Polyethylene Glycol 3350 [Miralax] 17 gm PO DAILY 08/29/16
[2016-08-30] MEDS: HYDROXYCHLOROQUINE SULFATE 200 MG TABLET PO SCH (09:43)
[2016-08-30] MEDS: FLUTICASONE PROPIONATE 120 SPRAY INHALER NS SCH (09:43)
[2016-08-30] MEDS: amLODIPine BESYLATE 5 MG TABLET PO SCH (09:44)
== END 2016-08-30 11:30 | disposition home or self-care (01) ==
LOC: ER 00:22 → INTOOBSV 02:52 → MS 02:52 → OBSVTOIN 02:52
PROVIDERS: ADMIT Nurse Practitioner; ATTEND Internal Medicine
DX: K56.69 Other intestinal obstruction (principal); E87.6 Hypokalemia; M34.89 Other systemic sclerosis; K62.3 Rectal prolapse; F32.9 Major depressive disorder, single episode, unspecified; K59.09 Other constipation
CPT/HCPCS: 36415; 71010; 74020; 74177; 80048; 80053; 81001; 82150; 82272; 83690; 85025; 96365; 96366; 99284; G0378

== ENCOUNTER 2017-07-13 15:46 | Inpatient (IN) | payer MEDICARE, BC ==
[2017-07-13 16:20] LABS: Hematocrit 32.4 % (37.0-47.0); Hemoglobin 11.5 gm/dL (12.5-16.0); Mean Cell Volume 86.2 fl (78-100); Mean Corpuscular Hemoglobin 30.6 pg (27-31); Mean Corpuscular Hgb Conc 35.5 g/dl (32-36); Mean Platelet Volume 8.6 fl (6.0-9.5); Neutrophil # 4.7 K/mm3 (1.3-6.0); Neutrophil % 77.7 % (42-75.0); Platelet Count 324 K/mm3 (150-450); Red Blood Count 3.76 M/mm3 (4.2-5.4)
[2017-07-13 16:31] LABS: Prothrombin Time (Patient) 10.7 Seconds (9.0-11.0)
[2017-07-13 16:32] LABS: Albumin * 3.5 gm/dl (3.4-5.0); Anion Gap 14.4 mmol/L (6.8-13.8); BUN/Creatinine Ratio 27.8 (9.0-21.6); Bilirubin, Total 0.5 mg/dL (0.0-1.1); Ca. Corrected For Albumin 9.5 mg/dL (8.4-10.2); Calcium * 9.4 mg/dL (7.9-10.9); Carbon Dioxide 27.6 mmol/L (24-32.6); INR 1.07 INR (0.90-1.10); Partial Thrombolplastin Time 23.9 Seconds (24-32)
[2017-07-13] MEDS ORDERED: POTASSIUM CHLORIDE 20 MEQ TABLET.SA PO ONE ×2 (16:51→22:15)
--- NOTE | 2017-07-13 16:53 | ERNOTE ---
GI Bleeding/Rectal Pain ER Presenting Symptoms: other - patient actually does not have any GI bleeding she has blood in her urine Time Seen by Provider: 07/13/17 16:38 Source: patient, family Exam Limitations: no limitations Immunizations: IMMUNIZATION HX Immunizations Up to Date Yes History of Influenza Vaccine Yes Hx Pneumococcal Vaccination Yes Allergies/Adverse Reactions: Allergies minocycline Adverse Reaction (Severe, Verified 07/13/17 16:02) Black spots inside mouth Home Medications: HOME MEDICATIONS Aspirin [Aspirin EC] 81 mg PO DAILY 04/16/16 [Last Taken Unknown] Ferrous Sulfate [Iron] 650 mg PO DAILY 04/16/16 [Last Taken Unknown] Hydroxychloroquine Sulfate [Plaquenil] 300 mg PO DAILY 04/16/16 [Last Taken Unknown] Levothyroxine Sodium [Synthroid] 88 mcg PO DAILY 04/16/16 [Last Taken Unknown] Omeprazole 40 mg PO BID 04/16/16 [Last Taken Unknown] Oxybutynin Chloride [Ditropan Xl] 10 mg PO BID 04/16/16 [Last Taken Unknown] Saccharomyces Boulardii [Probiotic] 250 mg PO DAILY 04/16/16 [Last Taken Unknown ] Simvastatin [Zocor] 10 mg PO DAILY 04/16/16 [Last Taken Unknown] amLODIPine BESYLATE [Norvasc] 5 mg PO DAILY 04/16/16 [Last Taken Unknown] Bifidobacterium Infantis [Align] 4 mg PO DAILY 08/29/16 [Last Taken Unknown] Fluticasone Propionate [Flonase] 2 spray NS DAILY 08/29/16 [Last Taken Unknown] Polyethylene Glycol 3350 [Miralax] 17 gm PO DAILY 08/29/16 [Last Taken Unknown] Narrative: Patient states that several weeks ago there was an incidental kidney stone that was 3 mm that was asymptomatic. She was seen at that time at the [facility] but is not even told about the kidney stone and discovered incidentally on regarding her discharge papers. Patient does have pain in her right flank that radiates down into the groin. Timing: intermittent Quality/Severity: Present: mild Nausea/Vomiting: Present: none Abdominal Pain: Present: other - right flank radiating down into the right lower abdomen Prior Treament: Reports: recently seen, treated by physician Review of Systems - Review of Systems Constitutional: Present: See HPI EYE: Present: no symptoms reported ENT: Present: no symptoms reported Respiratory: Present: no symptoms reported Cardiology: Present: no symptoms reported Gastrointestinal/Abdominal: Present: other - flank pain that radiates into the lower abdomen Genitourinary: Present: no symptoms reported Musculoskeletal: Present: no symptoms reported Skin: Present: no symptoms reported Neurological: Present: no symptoms reported Endocrine: Present: no symptoms reported Hematologic/Lymphatic: Present: no symptoms reported Psych: Present: no symptoms reported - Patient's Past Medical History Patient History - Medical: Anemia, Depression, GERD, Hypothyroidism, Other - hypokalemia Patient History - Cardiac/Respiratory: Hyperlipidemia Patient History - Cancer: Breast Patient History - Surgical Procedures: Cancer Surgery, Other Patient History - Other: None - Family History Sister Family History - Medical: Diabetes Type 2 Insulin Dependent, Hypothyroidism Family History - Cardiac/Respiratory: CVA/Stroke Father Family History - Medical: Mother Family History - Medical: Family History - Cardiac/Respiratory: Coronary Heart Disease - Social History Living Situations: home Abuse History: No History of abuse Psych History: No pertinent hx Alcohol Use: none Drug Use: none - Immunizations Immunizations Up to Date: Yes Hx Pneumococcal Vaccination: Yes History of Influenza Vaccine: Yes Physical Exam - Physical Exam General Appearance: Present: wd/wn, alert, mild distress Head Exam: Present: normal inspection, no evidence of injury Eye Exam: Normal inspection: bilateral, PERRL: bilateral Ears, Nose, Throat: Present: normal ENT inspection, H, normal pharynx Neck: Present: normal inspection, nontender Respiratory: Present: no respiratory distress, normal breath sounds, no accessory muscle use, chest nontender, lungs clear Cardiovascular/Chest: Present: regular rate, rhythm, no murmur, normal peripheral pulses Gastrointestinal/Abdominal: Present: normal bowel sounds, nontender, nondistended, soft, no organomegaly Rectal Exam: Present: deferred Back Exam: Present: normal range of motion, CVA tenderness (R) Extremity Exam: Present: normal inspection, non-tender, no edema, normal range of motion Neurological Exam: Present: alert, oriented, normal mood/affect Skin Exam: Present: normal color, warm/dry Lymphatic Exam: Present: no adenopathy ED Progress - Results and Orders Patient's Lab Results:: I have reviewed the patient's lab results. - Vital Signs Patient's Vital Signs:: I have reviewed the patient's vital signs. Vital Signs: Vital Signs 07/13/17 15:56 Temperature 36.9 C Pulse Rate 77 Respiratory 12 Rate Blood Pressure 92/54 O2 Sat by Pulse 100 Oximetry - EKG EKG: NSR, other - flattened T waves diffusely throughout the EKG - CT/Ultrasound CT/Ultrasound Narrative: CT the abdomen and pelvis reviewed by me - Progress/Reassessment Chief Complaint: GI Bleed Plan - Plan Plan: Patient will need to be admitted for correction of her profound hypokalemia. I discussed the case with Dr. Noguera and he agrees to admit. CT abdomen and pelvis is pending and if there is indeed a kidney stone urology is here tomorrow and may need to consult on her. Departure Clinical Impression: Hypokalemia - Departure Disposition: Still a patient Condition: Fair
[2017-07-13] MEDS ORDERED: POTASSIUM CHLORIDE 20 MEQ TABLET.SA ONE (16:57)
[2017-07-13] MEDS ORDERED: MORPHINE SULFATE 4 MG/ML SYRG IV ONE (17:11)
[2017-07-13] MEDS ORDERED: ONDANSETRON HCL/PF 2 MG/ML VIAL IV ONE (17:11)
[2017-07-13] MEDS ORDERED: ONDANSETRON HCL/PF 2 MG/ML VIAL ONE (17:15)
[2017-07-13] MEDS ORDERED: MORPHINE SULFATE 4 MG/ML SYRG ONE (17:15)
[2017-07-13] MEDS: POTASSIUM CHLORIDE IN WATER 100 ML IV SCH ×4 (17:34→20:51)
[2017-07-13 18:59] LABS: Urine Bilirubin Negative (NEGATIVE); Urine Blood 250 /ul (NEGATIVE); Urine Ketone 15 mg/dL (NEGATIVE); Urine Protein >=300 mg/dL (NEGATIVE); Urine Specific Gravity >=1.030 SP.GR. (1.005-1.010); Urine Urobilinogen Normal (NORMAL); Urine pH 5.5 pH (5.0-7.0)
[2017-07-13 19:10] LABS: Urine Appearance Bloody; Urine Bacteria 4+; Urine Color Brown; Urine Nitrite Positive (NEGATIVE); Urine RBC >50 /hpf (0-5)
--- NOTE | 2017-07-13 19:44 | HP ---
Chief Complaint - Chief Complaint Date of Service: 07/13/17 Time of Service: 19:42 Chief Complaint: " Abdominal Pain, Bloody urine". Source of HPI- Pt, reliable, ERP report. History of Present Illness: Mrs. Yousif is a 72-yr-old pt of Dr. Franca Massey with a PMH of: Amyloidosis , Anemia-iron deficiency, Breast Ca, CREST Sydrome, Depression, GERD, Hiatal Hernia, HLD, Raynaud's disease, & Rectal Prolapse. Pt states that for the last 2 weeks, she has had abdominal pain. The pain location is on her RT lower abdomen and it radiates to the RT lower back. Yesterday, she noticed the her urine was bloody and describes the colour as appearing "like Cranberry juice." She has been getting more weaker and therefore chose to come to the [facility] ER. She denies the associated symptoms of fever, chills, nausea, vomiting & Diarrhea. Work-up at the ED involved a CT scan of the Abdomen which did not show any evidence of Renal calculi but pylonephritis could not be excluded.(According to the daughter, CT Abdomen and Pelvis at the [facility] 2 weeks ago had showed 3 mm stone in the RT mid ureter, but states that the discharge papers did not show any interventions or necessary f/u). On the current CT abd. there were also numerous findings involving:calcified gallstone within the gallbladder, dilatation of the colon of the colon with large amount of stool in rectosigmoid area, swirling of the mesentary & Pelvic ascites, & Diffuse air within the bladder. Surgery consulted by the ERP regarding the abdominal CT findings and pt was evaluated by Dr. Sams. According to Dr. Sams, abdomen appears non-acute for now and no intervention is necessary, but in the event of such, she may need to be transferred to a higher level of care due to extensive history related to her CREST sydrome, and has close follow-up with the GI at the [facility]. Laboratory studies at the ED today showed K level of 2.0, otherwise all other labs on CBC& BMP were unremarkable. The UA was positive for Leuk. Est. with 4+ Bacteria. Of-note,pt has on- and- off diarrhea along with alternating constipation and is seen by the GI at the [facility] for these issues. Pt states that she was admitted at the [facility] 2 weeks ago following low potassium level of 2.4 during a follow-up appt with the GI. She was admitted on 06/22/17-06/27/17. She was also found to have hypomagnesemia and reported diarrhea. She had EGD/Flex.Sig on 06/25/17. Pt was found to have stool filled descending colon that could not be bypassed. The plan was to treat with tap water enema followed by colon prep for Colonoscopy. However, pt's stool came back positive for C-diff and therefore the goal was changed to treating C-diff first. Colonoscopy plan was held until pt completed the treatment for C-diff with Vancomycin PO x 14 days. Her last dose was on 07/12. It was determined that she needed colonoscopy to establish if her colon dilatation is from C-diff or Amyloidosis/scleroderma or other causes. Pt will be admitted in-patient for a minimum of 2 midnights due to severe symptomatic hypokalemia & UTI. - Patient's Past Medical History Patient History - Medical: Anemia, Depression, GERD, Hypothyroidism, Other - CREST syndrome,Hiatal Hernia, Patient History - Cardiac/Respiratory: Hyperlipidemia Patient History - Cancer: Breast Patient History - Surgical Procedures: Cancer Surgery, EGD, Tubal Ligation, Other - Rectal Surgery 2003 Patient History - Other: None - Family History Sister Family History - Medical: Diabetes Type 2 Insulin Dependent, Hypothyroidism Family History - Cardiac/Respiratory: CVA/Stroke Father Family History - Medical: Mother Family History - Medical: Family History - Cardiac/Respiratory: Coronary Heart Disease - Social History Living Situations: spouse Abuse History: No History of abuse Psych History: No pertinent hx Smoking Status: Former smoker Have you smoked in the past 12 months: No Alcohol Use: none Drug Use: none - Immunizations Immunizations Up to Date: Yes Hx Pneumococcal Vaccination: Yes History of Influenza Vaccine: Yes Review Of Systems (GEN) - Review of Systems Generalized/Overall Review: Present: Weakness, Malaise. Absent: Chills, Fever, Diaphoresis EENTM: Absent: Eye Pain, Blurred Vision, Tearing, Double Vision, Nose Congestion Respiratory: Absent: Cough, Shortness of Breath, Orthopnea Cardiac: Present: Edema. Absent: Chest Pain, Palpitations, Syncope Abdominal: Present: Abdominal Pain, Constipation, Diarrhea. Absent: Nausea, Vomiting, Hematemesis, Bright blood from rectum Genitourinary: Present: Frequency. Absent: Burning, Itching, Urgency Musculoskeletal: Present: Back Pain Neurological: Present: Headache. Absent: Anxiety, Depressed, Emotional Problems , Numbness, Parasthesia, Seizure, Tremors Skin: Absent: Dryness, Lesions Endocrine: Absent: Intolerance to Cold, Intolerance to Heat, Increased Thirst Misc: All systems neg except as marked Immunizations: IMMUNIZATION HX Immunizations Up to Date Yes History of Influenza Vaccine Yes Hx Pneumococcal Vaccination Yes Allergies/Adverse Reactions: Allergies Allergy/AdvReac Type Severity Reaction Status Date / Time minocycline AdvReac Severe Black Verified 07/13/17 19:42 spots inside mouth Home Medications: HOME MEDICATIONS Aspirin [Aspirin EC] 81 mg PO DAILY 04/16/16 [Last Taken 07/13/17] Ferrous Sulfate [Iron] 650 mg PO DAILY 04/16/16 [Last Taken 07/13/17] Hydroxychloroquine Sulfate [Plaquenil] 300 mg PO DAILY 04/16/16 [Last Taken ] Levothyroxine Sodium [Synthroid] 88 mcg PO DAILY 04/16/16 [Last Taken 07/13/17] Omeprazole 40 mg PO BID 04/16/16 [Last Taken 07/13/17] Saccharomyces Boulardii [Probiotic] 250 mg PO DAILY 04/16/16 [Last Taken ] Simvastatin [Zocor] 10 mg PO DAILY 04/16/16 [Last Taken 07/13/17] amLODIPine BESYLATE [Norvasc] 10 mg PO DAILY 04/16/16 [Last Taken 07/13/17] Bifidobacterium Infantis [Align] 4 mg PO DAILY 08/29/16 [Last Taken 07/13/17] Polyethylene Glycol 3350 [Miralax] 17 gm PO DAILY 08/29/16 [Last Taken 07/13/17] Betamethasone/Propylene Glyc [Betamethasone Dp Aug 0.05% Oin] 15 gm TP BID 07/13 [Last Taken Unknown] Clobetasol Propionate/Emoll [Clobetasol Emollient 0.05% Crm] 15 gm TP BID [Last Taken Unknown] Fluconazole [Diflucan] 400 mg PO DAILY 07/13/17 [Last Taken 07/13/17] Loperamide HCl [Imodium] 2 mg PO PRN 07/13/17 [Last Taken Unknown] Losartan Potassium [Cozaar] 25 mg PO DAILY 07/13/17 [Last Taken Unknown] Mycophenolate Mofetil [Cellcept] 1,000 mg PO BID 07/13/17 [Last Taken 07/13/17] Pilocarpine HCl 5 mg PO TID 07/13/17 [Last Taken 07/13/17] Triamcinolone Acetonide [Kenalog 0.1%] 1 appl TP BID 07/13/17 [Last Taken ] Exam - Exam Vital Signs: Vital Signs - Last Taken Temp 36.6 C 07/13/17 18:25 Pulse 68 07/13/17 18:25 Resp 18 07/13/17 18:25 BP 104/53 07/13/17 18:25 Pulse Ox 99 07/13/17 18:25 Constitutional: Present: Alert, Oriented x3, Cooperative, No distress, Elderly ENT Exam: Present: normal ENT inspection, dry mucous membranes Eye Exam: bilateral eye: normal inspection, PERRL Neck: Present: non-tender, full range of motion, supple Back Exam: Present: normal inspection, CVA tenderness (R) Breasts: Present: Exam deferred Respiratory: Present: lungs clear, No rales, No wheezing Cardiovascular/Chest: Present: normal peripheral pulses, regular rate, rhythm, no chest tenderness Abdomen: Present: Normal bowel sounds, soft, nontender /Rectal: Present: Exam deferred Extremity: Present: normal range of motion, non-tender, lower extremity edema - 1-2 + pitting edema Skin Exam: Present: warm/dry, no cyanosis Lymphatic: Present: no adenopathy Neurologic: Present: alert, normal mood/affect, oriented x 3 Appearance: Present: appropriate appearance, appropriate insight Eye contact: Present: cooperative, good eye contact, normal speech Thoughts: Present: normal thought pattern, no apparent hallucination Diagnostic Studies: Abnormal Lab Results 07/13/17 Range/Units 18:45 Urine Protein >=300 H (NEGATIVE) mg/dL Urine Blood 250 H (NEGATIVE) /ul Urine Nitrate Positive H (NEGATIVE) Prot Sulfosalicylic Acd 4+ H (0) mg/dL Ur Leukocyte Esterase 75 H (NEGATIVE) /ul Urine RBC >50 H (0-5) /hpf Urine WBC 10-25 H (0-5) /hpf Urine Bacteria 4+ H (NONE) Laboratory Results WBC 6.0 K/mm3 (4.0-10.5) 07/13/17 16:15 RBC 3.76 M/mm3 (4.2-5.4) L 07/13/17 16:15 Hgb 11.5 gm/dL (12.5-16.0) L 07/13/17 16:15 Hct 32.4 % (37.0-47.0) L 07/13/17 16:15 MCV 86.2 fl (78-100) 07/13/17 16:15 MCH 30.6 pg (27-31) 07/13/17 16:15 MCHC 35.5 g/dl (32-36) 07/13/17 16:15 RDW 13.0 % (11.5-14.0) 07/13/17 16:15 Plt Count 324 K/mm3 (150-450) 07/13/17 16:15 MPV 8.6 fl (6.0-9.5) 07/13/17 16:15 Immature Gran % (Auto) 0.30 % (0.001-0.429) 07/13/17 16:15 Immature Gran # (Auto) 0.02 K/mm3 (0.000-0.0310) 07/13/17 16:15 Neutrophils % 77.7 % (42-75.0) H 07/13/17 16:15 Lymphocytes % 15.3 % (20-51) L 07/13/17 16:15 Monocytes % 6.0 % (0.0-9) 07/13/17 16:15 Eosinophils % 0.5 % (0.0-3.0) 07/13/17 16:15 Basophils % 0.2 % (0.0-1.0) 07/13/17 16:15 Nucleated RBC % 0.0 k/mm3 (0-1) 07/13/17 16:15 Neutrophils # 4.7 K/mm3 (1.3-6.0) 07/13/17 16:15 Lymphocytes # 0.9 k/mm3 (1.5-3.5) L 07/13/17 16:15 Monocytes # 0.4 k/mm3 (0.0-1.0) 07/13/17 16:15 Eosinophils # 0.0 k/mm3 (0.0-0.7) 07/13/17 16:15 Absolute Basophils 0.0 k/mm3 (0.0-0.1) 07/13/17 16:15 PT 10.7 Seconds (9.0-11.0) 07/13/17 16:15 INR (Anticoag Therapy) 1.07 INR (0.90-1.10) 07/13/17 16:15 PTT (Brian) 23.9 Seconds (24-32) L 07/13/17 16:15 Sodium 133 mmol/L (132-142) 07/13/17 16:15 Plasma Sodium 133 mmol/L (130-142) 07/13/17 16:15 Potassium 2.0 mmol/L (3.4-4.6) L* D 07/13/17 16:15 Chloride 93 mmol/L (97-106) L 07/13/17 16:15 Carbon Dioxide 27.6 mmol/L (24-32.6) 07/13/17 16:15 Anion Gap 14.4 mmol/L (6.8-13.8) H 07/13/17 16:15 BUN 25 mg/dL (3-23) H D 07/13/17 16:15 Creatinine 0.90 mg/dL (0.4-1.4) 07/13/17 16:15 Est GFR (Non-Af Amer) 65 mL/min (60-130) D 07/13/17 16:15 BUN/Creatinine Ratio 27.8 (9.0-21.6) H 07/13/17 16:15 Random Glucose 102 mg/dL (70-110) 07/13/17 16:15 Calcium 9.4 mg/dL (7.9-10.9) 07/13/17 16:15 Calcium Adj for Albumin 9.5 mg/dL (8.4-10.2) 07/13/17 16:15 Magnesium 1.4 mg/dL (1.2-2.8) 07/13/17 16:15 Total Bilirubin 0.5 mg/dL (0.0-1.1) 07/13/17 16:15 AST 25 U/L (0-48) 07/13/17 16:15 ALT 27 U/L (19-67) 07/13/17 16:15 Alkaline Phosphatase 99 U/L (50-170) 07/13/17 16:15 Total Protein 7.0 gm/dL (6.2-8.2) 07/13/17 16:15 Albumin 3.5 gm/dl (3.4-5.0) 07/13/17 16:15 Urine Color Brown 07/13/17 18:45 Urine Appearance Bloody 07/13/17 18:45 Urine pH 5.5 pH (5.0-7.0) 07/13/17 18:45 Ur Specific [place] >=1.030 SP.GR. (1.005-1.010) 07/13/17 18:45 Urine Protein >=300 mg/dL (NEGATIVE) H 07/13/17 18:45 Urine Glucose (UA) Negative mg/dL (NEGATIVE) 07/13/17 18:45 Urine Ketones 15 mg/dL (NEGATIVE) 07/13/17 18:45 Urine Blood 250 /ul (NEGATIVE) H 07/13/17 18:45 Urine Nitrate Positive (NEGATIVE) H 07/13/17 18:45 Urine Bilirubin Negative mg/dl (NEGATIVE) 07/13/17 18:45 Prot Sulfosalicylic Acd 4+ mg/dL (0) H 07/13/17 18:45 Urine Urobilinogen Normal EU/dl (NORMAL) 07/13/17 18:45 Ur Leukocyte Esterase 75 /ul (NEGATIVE) H 18 18:45 Urine RBC >50 /hpf (0-5) H 07/13/17 18:45 Urine WBC 10-25 /hpf (0-5) H 07/13/17 18:45 Ur Epithelial Cells 0-5 /hpf (0-5) 07/13/17 18:45 Urine Bacteria 4+ (NONE) H 18 18:45 Urine Culture Comments Culture to follow 07/13/17 18:45 Blood Type B Positive 07/13/17 16:15 Antibody Screen Negative 07/13/17 16:15 Assessment/Plan - Assessment/Plan (1) Hypokalemia Assessment: Pt noted to have K level of 2.0 on DOA. Was given oral replacement of 40 mEQ at the ED followed by IV replenishing of 40 mEQ. Will give another 40 orally. Pt is symptomatic with weakness and also constipation according to the CT scan. Review of Hypokalemia causes shows no reports nausea, vomiting, diarrhea and no diuretic use. She is on Hydroxychloroquine for nodular amyloidosis and chloroquine is one of the drug that can cause potassium shift into the intracellular space. Consider daily replenishing and continue labs f/u on discharge. Problem: Acute (2) UTI (urinary tract infection) Assessment: Was given Rocephin at the ED and will continue until urine culture results. CT abdomen showed: Diffuse air within the bladder and thought to be suggesting gas forming organism. Urine noted to be high in Blood and also RBC is high. Will consult Urology in am about the findings. Continue with IVF hydration. Monitor CBC in am. Laboratory Tests 07/13/17 18:45 Urine Protein >=300 H Urine Blood 250 H Urine Nitrate Positive H Ur Leukocyte Esterase 75 H Urine RBC >50 H Urine WBC 10-25 H Urine Bacteria 4+ H Problem: Acute (3) Oral candidiasis Assessment: According to the pt, she was recently found to have shyla following an EGD at the [facility]- She was started on Flucanozole 400mg bid and she completed that course of treatment today. However, she reports continues oral thrush that causes her pain and difficulty with swallowing. Will start her on oral Nystatin swish q.i.d. She has chronic history of Candidal Esophagitis and has been treated with flucanozole. Problem: Acute (4) Constipation Assessment: CT- Abdomen showed large amount of stool in the Restigmoid Area. Will treat with stimulant laxatives tonight with Senna and Miralax. Hold her immodium. Problem: Acute (5) Shyla esophagitis Assessment: Followed by the GI at the [facility]. Pt states she had another EGD during a recent follow-up and was found to have Shyla and was started on Flucanozole. She completed the course of tx on 07/12/17. Problem: Chronic (6) CREST syndrome Assessment: Has been seen by GI in the past at the [facility]. Problem: Chronic (7) GERD (gastroesophageal reflux disease) Assessment: Stable - on omeprazole. Problem: Chronic Qualifiers: Esophagitis presence: without esophagitis Qualified Code(s): K21.9 - Gastro -esophageal reflux disease without esophagitis (8) Raynaud disease Assessment: Continue Amlodipine. Problem: Chronic (9) Systemic sclerosis Assessment: Reported since 1992 & is Followed by the Dermatology at the [facility] - she is on Cellcept and Hydroxychloroquine. She has chronic GI symptoms including dysphagia & alternating bowel habits. 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 Her systemic sclesosis has been known to cause dilatations in the bowel along with GERD. She is closely followed by GI at the [facility]. Problem: Chronic
[2017-07-13] MEDS: POTASSIUM CHLORIDE 20 MEQ in NORMAL SALINE 1,000 ML IV SCH (22:55)
[2017-07-13] MEDS: SENNOSIDES 8.6 MG TABLET PO SCH (22:56)
[2017-07-13] MEDS: MYCOPHENOLATE MOFETIL 500 MG TABLET PO SCH (22:56)
[2017-07-13] MEDS: POLYETHYLENE GLYCOL 3350 119 GM BTL PO SCH (22:56)
[2017-07-13] MEDS: NYSTATIN 60 ML BTL PO SCH (22:57)
[2017-07-14 06:19] LABS: Anion Gap 9.6 mmol/L (6.8-13.8); BUN/Creatinine Ratio 33.3 (9.0-21.6); Calcium * 8.5 mg/dL (7.9-10.9); Carbon Dioxide 28.1 mmol/L (24-32.6); Estimated Creat Clear 73.4; Potassium 3.7 mmol/L (3.4-4.6)
--- NOTE | 2017-07-14 06:21 | PN ---
<SudhirSarah - Last Filed: 07/14/17 22:47> Subjective - Date and Time Seen Date: 07/14/17 Time: 06:20 Subjective Narrative: Pt seen this am. Has no complaints. She denies abdominal pain and states its on and off. She had moderate BM with the laxatives. Objective - Vitals Vitals: Last Vital Signs Temp 36.6 C 07/13/17 18:25 Pulse 62 07/14/17 04:45 Resp 18 07/13/17 18:25 BP 104/53 07/13/17 18:25 Pulse Ox 99 07/13/17 18:25 - Abnormal Lab Findings Abnormal Lab Findings: Abnormal Lab Results 07/13/17 Range/Units 18:45 Urine Protein >=300 H (NEGATIVE) mg/dL Urine Blood 250 H (NEGATIVE) /ul Urine Nitrate Positive H (NEGATIVE) Prot Sulfosalicylic Acd 4+ H (0) mg/dL Ur Leukocyte Esterase 75 H (NEGATIVE) /ul Urine RBC >50 H (0-5) /hpf Urine WBC 10-25 H (0-5) /hpf Urine Bacteria 4+ H (NONE) - Exam Constitutional: Present: Alert, Oriented x3, Cooperative, No distress ENT Exam: Present: normal ENT inspection Neck: Present: non-tender, full range of motion, supple Breasts: Present: Exam deferred Respiratory: Present: lungs clear, No rales, No wheezing Cardiovascular/Chest: Present: normal peripheral pulses, regular rate, rhythm, no chest tenderness, no edema Abdomen: Present: Normal bowel sounds, soft, nontender /Rectal: Present: Exam deferred Extremity: Present: normal range of motion, non-tender, normal inspection, no calf tenderness Skin Exam: Present: warm/dry, no cyanosis Lymphatic: Present: no adenopathy Neurologic: Present: alert, normal mood/affect, oriented x 3 Appearance: Present: appropriate appearance, appropriate insight Eye contact: Present: cooperative, good eye contact, normal speech Thoughts: Present: normal thought pattern, no apparent hallucination Assessment/Plan - Problems/Diagnosis (1) Hypokalemia Problem: Acute Narrative: Pt noted to have K level of 2.0 on DOA. Was given oral replacement of 40 mEQ at the ED followed by IV replenishing of 40 mEQ. Will give another 40 orally. Pt is symptomatic with weakness and also constipation according to the CT scan. Review of Hypokalemia causes shows no reports nausea, vomiting, diarrhea and no diuretic use. She is on Hydroxychloroquine for nodular amyloidosis and chloroquine is one of the drug that can cause potassium shift into the intracellular space. Consider daily replenishing and continue labs f/u on discharge. (2) UTI (urinary tract infection) Problem: Acute Narrative: Was given Rocephin at the ED and will continue until urine culture results. CT abdomen showed: Diffuse air within the bladder and thought to be suggesting gas forming organism. Urine noted to be high in Blood and also RBC is high. Will consult Urology in am about the findings. Continue with IVF hydration. Monitor CBC in am. Laboratory Tests 07/13/17 18:45 Urine Protein >=300 H Urine Blood 250 H Urine Nitrate Positive H Ur Leukocyte Esterase 75 H Urine RBC >50 H Urine WBC 10-25 H Urine Bacteria 4+ H (3) Oral candidiasis Problem: Acute Narrative: According to the pt, she was recently found to have tomy following an EGD at the [facility]- She was started on Flucanozole 400mg bid and she completed that course of treatment today. However, she reports continues oral thrush that causes her pain and difficulty with swallowing. Will start her on oral Nystatin swish q.i.d. She has chronic history of Candidal Esophagitis and has been treated with flucanozole. (4) Constipation Problem: Acute Narrative: CT- Abdomen showed large amount of stool in the Restigmoid Area. Will treat with stimulant laxatives tonight with Senna and Miralax. Hold her immodium (5) Tomy esophagitis Problem: Chronic Narrative: Followed by the GI at the [facility]. Pt states she had another EGD during a recent follow-up and was found to have Tomy and was started on Flucanozole. She completed the course of tx on 07/12/17. (6) CREST syndrome Problem: Chronic Narrative: Has been seen by GI in the past at the [facility]. (7) GERD (gastroesophageal reflux disease) Problem: Chronic QualifierTitle: Esophagitis presence: without esophagitis Qualified Code( s): K21.9 - Gastro-esophageal reflux disease without esophagitis Narrative: Stable - on omeprazole. (8) Raynaud disease Problem: Chronic (9) Systemic sclerosis Problem: Chronic Narrative: Reported since 1992 & is Followed by the Dermatology at the [facility] - she is on Cellcept and Hydroxychloroquine. She has chronic GI symptoms including dysphagia & alternating bowel habits. 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 Her systemic sclesosis has been known to cause dilatations in the bowel along with GERD. She is closely followed by GI at the [facility]. <Kevin Noguera - Last Filed: 08/02/17 09:52> Objective - Vitals Vitals: Last Vital Signs Temp 36.5 C 07/16/17 10:03 Pulse 84 07/16/17 11:00 Resp 14 07/16/17 10:03 BP 121/65 07/16/17 10:03 Pulse Ox 92 07/16/17 10:03 Assessment/Plan Plan Narrative: Patient was seen and evaluated with hospitalist, Sarah Peguero. Agree with narrative and plan. Patient with significant hypokalemia, will need a few days to replace potassium and make sure it is stable. - Problems/Diagnosis (1) Hypokalemia Problem: Acute (2) Oral candidiasis Problem: Acute (3) UTI (urinary tract infection) Problem: Acute (4) CREST syndrome Problem: Chronic
[2017-07-14 06:22] LABS: Hemoglobin 10.4 gm/dL (12.5-16.0); Mean Cell Volume 88.5 fl (78-100); Mean Corpuscular Hemoglobin 30.7 pg (27-31); Mean Corpuscular Hgb Conc 34.7 g/dl (32-36); Neutrophil % 71.9 % (42-75.0); Platelet Count 261 K/mm3 (150-450); Red Blood Count 3.39 M/mm3 (4.2-5.4); Red Cell Distribution Width 13.3 % (11.5-14.0); White Blood Count 4.2 K/mm3 (4.0-10.5)
[2017-07-14] MEDS ORDERED: PROPYLENE GLYC TP SCH (09:00)
[2017-07-14] MEDS: MYCOPHENOLATE MOFETIL 500 MG TABLET PO SCH ×2 (09:00→21:55)
[2017-07-14] MEDS ORDERED: PILOCARPINE 5 MG PO SCH (09:00)
[2017-07-14] MEDS ORDERED: BIFIDOBACTERIUM INFANTIS 4 MG PO SCH (09:00)
[2017-07-14] MEDS ORDERED: [UNRECOGNIZED DRUG - OTHER] TP SCH (09:00)
[2017-07-14] MEDS: POLYETHYLENE GLYCOL 3350 119 GM BTL PO SCH (09:00)
[2017-07-14] MEDS ORDERED: BETAMETHASONE TP SCH (09:00)
[2017-07-14] MEDS: NYSTATIN 60 ML BTL PO SCH ×4 (09:00→21:55)
[2017-07-14] MEDS ORDERED: CLOBETASOL PROPIONATE/EMOLL 60 APPL TUBE TP SCH (09:00)
[2017-07-14] MEDS ORDERED: amLODIPine BESYLATE 5 MG TABLET PO SCH (09:00)
[2017-07-14] MEDS ORDERED: SIMVASTATIN 10 MG TABLET PO SCH (09:00)
[2017-07-14] MEDS: POTASSIUM CHLORIDE 20 MEQ in NORMAL SALINE 1,000 ML IV SCH ×2 (09:37→19:20)
[2017-07-14] MEDS: TRIAMCINOLONE ACETONIDE 80 APPL TUBE TP SCH ×2 (10:00→21:59)
[2017-07-14] MEDS: CLOBETASOL PROPIONATE 15 APPL TUBE TP SCH ×2 (10:03→22:00)
--- NOTE | 2017-07-14 12:58 | CONS ---
HPI - General Narrative: 72-year-old female with history of crest syndrome, breast cancer at significant bowel issues admitted for abdominal discomfort, hypokalemia and gross hematuria. Patient follows at the [place] where she was supposed to have colonoscopy but sounds like she developed C. difficile colitis. Also follows there for her crest syndrome sounds like she has esophageal scarring/stenosis. 07/11 voided UA FM: Abnormal culture: Gram-negative, susceptibility pending Creatinine history: 07/[address] stone protocol: No stones or hydronephrosis. Significant bowel distention consistent with ileus versus obstruction with likely fecal impaction. Possible air in bladder versus displacement by bowel. Location: Lower abdomen/bladder Duration: Days Severity/Stage: Mild to moderate discomfort Associated Sx's: Gross hematuria, chronic abdominal discomfort, mainly constipation but also his fecally incontinent with loose stools Modifying factors: Seems to be getting a little bit better Quality: Dull ache not colicky Past medical history: includes crest syndrome, breast cancer denies diabetes Past surgical history: Abdominal surgery for rectal prolapse, no prior urologic surgery Social history: nonsmoker. Family history: Noncontributory Review of systems: General: No fevers, some fatigue. HEENT: Poor oral intake has difficult time swallowing Lungs: No current shortness of breath Heart: No chest pain GI: Significant constipation issues. His fecally incontinent. Has a lot of diarrhea as well. Musculoskeletal: Some aches and pains Endocrine: Not diabetic Rheumatology: Followed at [place] for systemic sclerosis/CREST Syndrome : Denies pneumaturia or debris and urine. Recent gross hematuria over the last couple of days. About a week ago she did have UTI-like symptoms 14 point review of systems otherwise negative, important positives noted. - History of Present Illness Allergies/Adverse Reactions: Allergies minocycline Adverse Reaction (Severe, Verified 07/13/17 19:42) Black spots inside mouth Home Medications: Home Medications Medication Instructions Recorded Last Taken Aspirin [Aspirin EC] 81 mg PO DAILY 04/16/16 07/13/17 Ferrous Sulfate [Iron] 650 mg PO DAILY 04/16/16 07/13/17 Hydroxychloroquine Sulfate 300 mg PO DAILY 04/16/16 07/13/17 [Plaquenil] Levothyroxine Sodium [Synthroid] 88 mcg PO DAILY 04/16/16 07/13/17 Omeprazole 40 mg PO BID 04/16/16 07/13/17 Saccharomyces Boulardii [Probiotic] 250 mg PO DAILY 04/16/16 07/13/17 Simvastatin [Zocor] 10 mg PO DAILY 04/16/16 07/13/17 amLODIPine BESYLATE [Norvasc] 10 mg PO DAILY 04/16/16 07/13/17 Bifidobacterium Infantis [Align] 4 mg PO DAILY 08/29/16 07/13/17 Polyethylene Glycol 3350 [Miralax] 17 gm PO DAILY 08/29/16 07/13/17 Betamethasone/Propylene Glyc 15 gm TP BID 07/13/17 Unknown [Betamethasone Dp Aug 0.05% Oin] Clobetasol Propionate/Emoll 15 gm TP BID 07/13/17 Unknown [Clobetasol Emollient 0.05% Crm] Fluconazole [Diflucan] 400 mg PO DAILY 07/13/17 07/13/17 Loperamide HCl [Imodium] 2 mg PO PRN 07/13/17 Unknown Losartan Potassium [Cozaar] 25 mg PO DAILY 07/13/17 Unknown Mycophenolate Mofetil [Cellcept] 1,000 mg PO BID 07/13/17 07/13/17 Pilocarpine HCl 5 mg PO TID 07/13/17 07/13/17 Triamcinolone Acetonide [Kenalog 1 appl TP BID 07/13/17 07/13/17 0.1%] - Patient's Past Medical History Patient History - Medical: Anemia, Depression, GERD, Hypothyroidism, Other - CREST syndrome,Hiatal Hernia, Patient History - Cardiac/Respiratory: Hyperlipidemia Patient History - Cancer: Breast Patient History - Surgical Procedures: Cancer Surgery, EGD, Tubal Ligation, Other - Rectal Surgery 2003 Patient History - Other: None - Family History Sister Family History - Medical: Diabetes Type 2 Insulin Dependent, Hypothyroidism Family History - Cardiac/Respiratory: CVA/Stroke Father Family History - Medical: Mother Family History - Medical: Family History - Cardiac/Respiratory: Coronary Heart Disease - Social History Living Situations: spouse Abuse History: No History of abuse Psych History: No pertinent hx Smoking Status: Former smoker Have you smoked in the past 12 months: No Alcohol Use: none Drug Use: none - Immunizations Immunizations Up to Date: Yes Hx Pneumococcal Vaccination: Yes History of Influenza Vaccine: Yes Procedures EXCISE AXILLARY NODE (06/27/02) LOCAL EXCIS BREAST LES (06/27/02) Medications - Medications Current Medications: Current Medications Clobetasol Propionate (Temovate Emollient 0.05%) 1 appl TP BID DIANE Stop: 08/13/17 09:01 Last Admin: 07/14/17 10:03 Dose: 1 appl Potassium Chloride 20 meq/ (Sodium Chloride) 1,010 mls @ 100 mls/hr IV .Q10H6M DIANE Stop: 08/12/17 22:16 Last Admin: 07/14/17 09:37 Dose: 100 mls/hr Mycophenolate Mofetil (Cellcept) 1,000 mg PO BID DIANE Stop: 08/12/17 22:01 Last Admin: 07/13/17 22:56 Dose: Not Given Nystatin (Mycostatin 100 Mu/Ml Suspension) 5 ml PO QID DIANE Stop: 08/12/17 22:16 Last Admin: 07/13/17 22:57 Dose: 5 ml Polyethylene Glycol (Miralax) 17 gm PO DAILY DIANE Stop: 08/12/17 22:01 Last Admin: 07/13/17 22:56 Dose: Not Given Senna (Senokot) 17.2 mg PO HS DIANE Stop: 08/12/17 22:01 Last Admin: 07/13/17 22:56 Dose: Not Given Triamcinolone Acetonide (Kenalog 0.1%) 1 appl TP BID DIANE Stop: 08/13/17 09:01 Last Admin: 07/14/17 10:00 Dose: 1 appl Physical Examination - Exam Narrative: General: Nontoxic, looks a little uncomfortable but no severe acute distress, not in retention or severe colic. Somewhat frail, impaired performance status Psych: Appropriate affect HEENT: EOM grossly intact , no scleral icterus Lungs: Respirations unlabored, no audible wheezing Abdomen: Very thin, no peritoneal signs, bowels distended/symptomatic does not appear to be a surgical abdomen Neuro: no focal deficits but she was laying down Extremities: Fine dexterity a little off Cardiovascular: Pulse regular Skin: No obvious rashes or significant bruising Back: No CVA tenderness Vital Signs: Vital Signs - Last Taken Temp 98.2 F 07/14/17 10:34 Pulse 60 07/14/17 10:34 Resp 18 07/14/17 10:34 BP 106/43 07/14/17 10:34 Pulse Ox 99 07/14/17 10:34 O2 Oxygen Delivery Method Room Air - Results and Findings: Narrative: #1 gross hematuria: Likely cystitis, I would follow up on cultures make sure she is on appropriate antibiotics. I would perform cystoscopy at a later date once susceptibilities known under anesthesia with bilateral retrograde pyelograms at the same time. Would consider biopsy at that time but if something major discovered would only obtain information i.e. if tumor present would not resect as that has significant more potential risk that I would need to discuss with her first. # 2 possible air in bladder: Infection alone could cause that, other possibility here is distortion by bowel giving the appearance that it is within bladder. It is really difficult to identify anatomy based on degree of bowel distention/impaction. Possibility of fistula exists. Sounds like she has not had a colonoscopy in some time. I'm not sure how feasible that is i.e. looks by CT that she has fecal impaction and small bowel has air-fluid levels concern would be ileus versus true small bowel obstruction. Her exam is relatively benign however. I will arrange for outpatient cystoscopy with retrogrades. From my standpoint okay to eat follow-up on cultures and place her on appropriate antibiotics. Lab/Microbiology results last 24 hrs: Abnormal/Pending Laboratory Last 24 HRS 07/14/17 07/14/17 07/13/17 06:08 06:08 18:45 RBC 3.39 L Hgb 10.4 L Hct 30.0 L Immature Gran % (Auto) 0.50 H Lymphocytes % 19.7 L Lymphocytes # 0.8 L BUN/Creatinine Ratio 33.3 H Urine Protein >=300 H Urine Blood 250 H Urine Nitrate Positive H Prot Sulfosalicylic Acd 4+ H Ur Leukocyte Esterase 75 H Urine RBC >50 H Urine WBC 10-25 H Urine Bacteria 4+ H Culture 07/13/17 18:45 Urine Culture - Preliminary Urine,Clean Catch Gram Negative Bacilli
[2017-07-14] MEDS: SACCHAROMYCES BOULARDII 250 MG CAPSULE PO SCH (16:03)
[2017-07-14] MEDS: PANTOPRAZOLE SODIUM 40 MG TABLET.EC PO SCH ×2 (16:03→17:12)
[2017-07-14] MEDS: FERROUS SULFATE 325 MG TABLET PO SCH (16:04)
[2017-07-14] MEDS: LEVOTHYROXINE SODIUM 88 MCG TABLET PO SCH (16:04)
[2017-07-14] MEDS: ASPIRIN 81 MG TABLET.DR PO SCH (16:06)
[2017-07-14] MEDS: LOSARTAN POTASSIUM 50 MG TABLET PO SCH (16:07)
[2017-07-14] MEDS: amLODIPine BESYLATE 10 MG TABLET PO SCH (16:08)
[2017-07-14] MEDS: HYDROXYCHLOROQUINE SULFATE 200 MG TABLET PO SCH (16:09)
[2017-07-14] MEDS ORDERED: ACETAMINOPHEN 325 MG TABLET PO PRN (16:43)
[2017-07-14] MEDS: KETOROLAC TROMETHAMINE 15 MG/ML VIAL IV PRN (17:18)
[2017-07-14] MEDS: cefTRIAXone SODIUM 1,000 MG in DEXTROSE 5 % IN WATER 50 ML IV SCH ×2 (17:20)
[2017-07-14] MEDS: SENNOSIDES 8.6 MG TABLET PO SCH (21:57)
[2017-07-14] MEDS: SIMVASTATIN 10 MG TABLET PO SCH (21:58)
[2017-07-15] MEDS: POTASSIUM CHLORIDE 20 MEQ in NORMAL SALINE 1,000 ML IV SCH ×2 (05:56→13:42)
[2017-07-15 06:29] LABS: Anion Gap 10.6 mmol/L (6.8-13.8); BUN/Creatinine Ratio 27.1 (9.0-21.6); Calcium * 7.9 mg/dL (7.9-10.9); Carbon Dioxide 25.7 mmol/L (24-32.6); Estimated Creat Clear 82.6; Potassium 3.3 mmol/L (3.4-4.6)
[2017-07-15] MEDS: LEVOTHYROXINE SODIUM 88 MCG TABLET PO SCH (06:58)
[2017-07-15] MEDS: PANTOPRAZOLE SODIUM 40 MG TABLET.EC PO SCH ×2 (06:58→16:12)
--- NOTE | 2017-07-15 08:31 | CONS ---
[facility] - General Date of Service: 07/13/17 Narrative: Consultation requested by ERP due to abnormal CT Source: patient, family, RN/MD, RN notes reviewed, old records Exam Limitations: no limitations - History of Present Illness Initial Comments: She presented due to "urine like cranberry juice" and she read her CT report form [facility] that mentioned a ureteral stone. She had a CT here that shows markedly abnormal bowel gas pattern with possible mesenteric swirling and I was consulted. 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 (available [facility] documentation of her most recent visits reviewed and materials made available to [facility]) She was in hospital 2 weeks ago at [facility] for low K+ (2.4 up to 3.8 prior to D/C) She had an EGD there and was found to have esophageal candidiasis for which she was treated. They were going to do a colonoscopy, but she was found to have C Diff and that was deferred. She is on Vancomycin. Currently her discomfort is intermittent and low RLQ into right flank. She has had diarrhea and was taking ? Imodium. There is a large amount of stool on CT and gas in the bladder. She has a very large hiatal hernia. Severity: moderate Modifying Factors - (Improves): Reports: immobilization Allergies/Adverse Reactions: Allergies minocycline Adverse Reaction (Severe, Verified 07/13/17 19:42) Black spots inside mouth Home Medications: Home Medications Medication Instructions Recorded Last Taken RX: Aspirin [Aspirin EC] 81 mg PO DAILY 04/16/16 07/13/17 RX: Ferrous Sulfate [Iron] 650 mg PO DAILY 04/16/16 07/13/17 RX: Hydroxychloroquine Sulfate 300 mg PO DAILY 04/16/16 07/13/17 [Plaquenil] RX: Levothyroxine Sodium 88 mcg PO DAILY 04/16/16 07/13/17 [Synthroid] RX: Omeprazole 40 mg PO BID 04/16/16 07/13/17 RX: Saccharomyces Boulardii 250 mg PO DAILY 04/16/16 07/13/17 [Probiotic] RX: Simvastatin [Zocor] 10 mg PO DAILY 04/16/16 07/13/17 RX: amLODIPine BESYLATE [Norvasc] 10 mg PO DAILY 04/16/16 07/13/17 RX: Bifidobacterium Infantis 4 mg PO DAILY 08/29/16 07/13/17 [Align] RX: Polyethylene Glycol 3350 17 gm PO DAILY 08/29/16 07/13/17 [Miralax] Betamethasone/Propylene Glyc 15 gm TP BID 07/13/17 Unknown [Betamethasone Dp Aug 0.05% Oin] Clobetasol Propionate/Emoll 15 gm TP BID 07/13/17 Unknown [Clobetasol Emollient 0.05% Crm] Fluconazole [Diflucan] 400 mg PO DAILY 07/13/17 07/13/17 Loperamide HCl [Imodium] 2 mg PO Q6H PRN 07/13/17 Unknown Losartan Potassium [Cozaar] 25 mg PO DAILY 07/13/17 Unknown Mycophenolate Mofetil [Cellcept] 1,000 mg PO BID 07/13/17 07/13/17 RX: Pilocarpine HCl 5 mg PO TID 07/13/17 07/13/17 Triamcinolone Acetonide [Kenalog 1 appl TP BID 07/13/17 07/13/17 0.1%] - Patient's Past Medical History Patient History - Medical: Anemia, Depression, GERD, Hypothyroidism, Other - CREST syndrome,Hiatal Hernia, Patient History - Cardiac/Respiratory: Hyperlipidemia Patient History - Cancer: Breast Patient History - Surgical Procedures: Cancer Surgery, EGD, Tubal Ligation, Other - Rectal Surgery 2003 Patient History - Other: None - Family History Sister Family History - Medical: Diabetes Type 2 Insulin Dependent, Hypothyroidism Family History - Cardiac/Respiratory: CVA/Stroke Father Family History - Medical: Mother Family History - Medical: Family History - Cardiac/Respiratory: Coronary Heart Disease - Social History Living Situations: spouse Abuse History: No History of abuse Psych History: No pertinent hx Smoking Status: Former smoker Have you smoked in the past 12 months: No Alcohol Use: none Drug Use: none - Immunizations Immunizations Up to Date: Yes Hx Pneumococcal Vaccination: Yes History of Influenza Vaccine: Yes Procedures EXCISE AXILLARY NODE (06/27/02) LOCAL EXCIS BREAST LES (06/27/02) Medications - Medications Current Medications: Current Medications Amlodipine Besylate (Norvasc) 10 mg PO DAILY DIANE Stop: 08/13/17 09:01 Last Admin: 07/14/17 16:08 Dose: Not Given Aspirin (Aspirin Enteric Coated) 81 mg PO DAILY DIANE Stop: 08/13/17 09:01 Last Admin: 07/14/17 16:06 Dose: 81 mg Clobetasol Propionate (Temovate Emollient 0.05%) 1 appl TP BID DIANE Stop: 08/13/17 09:01 Last Admin: 07/14/17 22:00 Dose: 1 appl Ferrous Sulfate (Ferrous Sulfate) 650 mg PO DAILY DIANE Stop: 08/13/17 09:01 Last Admin: 07/14/17 16:04 Dose: 650 mg Hydroxychloroquine Sulfate (Plaquenil) 300 mg PO DAILY DIANE Stop: 08/13/17 09:01 Last Admin: 07/14/17 16:09 Dose: 300 mg Potassium Chloride 20 meq/ (Sodium Chloride) 1,010 mls @ 100 mls/hr IV .Q10H6M [facility] Stop: 08/12/17 22:16 Last Admin: 07/15/17 05:56 Dose: 100 mls/hr Ceftriaxone Sodium 1,000 mg/ (Dextrose/Water) 50 mls @ 100 mls/hr IV Q24H DIANE PRN Reason: Protocol Stop: 08/13/17 18:01 Last Admin: 07/14/17 17:20 Dose: 100 mls/hr Ketorolac Tromethamine (Toradol) 15 mg IV Q6H PRN PRN Reason: Moderate Pain (pain scale 4-6) Stop: 07/19/17 16:44 Last Admin: 07/14/17 17:18 Dose: 15 mg Levothyroxine Sodium (Synthroid) 88 mcg PO 0700 DIANE Stop: 08/13/17 07:01 Last Admin: 07/15/17 06:58 Dose: 88 mcg Losartan Potassium (Cozaar) 25 mg PO DAILY DIANE Stop: 08/13/17 09:01 Last Admin: 07/14/17 16:07 Dose: Not Given Mycophenolate Mofetil (Cellcept) 1,000 mg PO BID DIANE Stop: 08/12/17 22:01 Last Admin: 07/14/17 21:55 Dose: 1,000 mg Nystatin (Mycostatin 100 Mu/Ml Suspension) 5 ml PO QID DIANE Stop: 08/12/17 22:16 Last Admin: 07/14/17 21:55 Dose: 5 ml Pantoprazole Sodium (Protonix) 40 mg PO BIDAC [facility] Stop: 08/13/17 07:01 Last Admin: 07/15/17 06:58 Dose: 40 mg Polyethylene Glycol (Miralax) 17 gm PO DAILY DIANE Stop: 08/12/17 22:01 Last Admin: 07/14/17 09:00 Dose: Not Given Saccharomyces Boulardii (Florastor) 250 mg PO DAILY DIANE Stop: 08/13/17 09:01 Last Admin: 07/14/17 16:03 Dose: 250 mg Senna (Senokot) 17.2 mg PO HS [facility] Stop: 08/12/17 22:01 Last Admin: 07/14/17 21:57 Dose: Not Given Simvastatin (Zocor) 10 mg PO HS [facility] Stop: 08/13/17 21:01 Last Admin: 07/14/17 21:58 Dose: 10 mg Triamcinolone Acetonide (Kenalog 0.1%) 1 appl TP BID [facility] Stop: 08/13/17 09:01 Last Admin: 07/14/17 21:59 Dose: 1 appl Review of Systems - Review of Systems Generalized/Overall Review: Present: Weakness, Fatigue. Absent: Chills, Fever EENTM: Present: Mouth Pain Respiratory: Present: No Symptoms Reported Cardiac: Present: No Symptoms Reported Abdominal: Present: Abdominal Pain Genitourinary: Present: Hematuria Musculoskeletal: Present: Joint Pain Neurological: Present: No Symptoms Reported Skin: Present: Dryness, Lesions Physical Examination - Exam Vital Signs: Vital Signs - Last Taken Temp 36.6 C 07/13/17 18:25 Pulse 68 07/13/17 18:25 Resp 18 07/13/17 18:25 BP 104/53 07/13/17 18:25 Pulse Ox 99 07/13/17 18:25 O2 Oxygen Delivery Method Room Air Constitutional: Present: Alert, Oriented x3, Cooperative, Thin and frail ENT Exam: Present: normal ENT inspection, other - dry MM's Eye Exam: bilateral eye: normal inspection Neck: Present: full range of motion, normal inspection Breasts: Present: Exam deferred Respiratory: Present: lungs clear Cardiovascular/Chest: Present: regular rate, rhythm Abdomen: Present: other - Slightly protuberant and tympanitic, but no percussion tenderness. Localizes pain RLQ and right flank but no discrete point tenderness and no rebound tenderness elicitied. No guarding at any time. /Rectal: Present: Exam deferred Extremity: Present: normal range of motion Skin Exam: Present: warm/dry, pallor Neurologic: Present: recycling specialist II-XII nml as tested, no motor/sensory deficits Appearance: Present: appropriate insight, other - slow speech Eye contact: Present: cooperative, good eye contact Thoughts: Present: normal thought pattern - Results and Findings: Lab/Microbiology results last 24 hrs: Abnormal/Pending Laboratory Last 24 HRS 07/15/17 06:12 Potassium 3.3 L Est GFR (Non-Af Amer) 135 H BUN/Creatinine Ratio 27.1 H Culture 07/13/17 18:45 Urine Culture - Final Urine,Clean Catch Klebsiella Pneumoniae 07/14/17 06:08 Blood Culture - Preliminary Blood NO GROWTH 24 HOURS - Assessments/Findings (1) Constipation Diagnosis(s): She has GI motility issues that are longstanding and related to her underlying disease, aggrevated by low K+, possible UTI with ileus and Imodium. She does not have peritoneal signs on current exam with normal WBC, BP and heart rate. Likelihood of acute surgical intra-abdominal process is low. Recommend replenishment of K+, check for UTI and Urology consultation has been requested. Stop Imodium. Laxative or enema could be used in light of relatively benign exam. Request records from [facility] re: her recent admission there. Given her established relationship with GI at the [facility], I would defer any further management to them. Problem: Acute
[2017-07-15] MEDS: POTASSIUM CHLORIDE 20 MEQ TABLET.SA PO SCH (08:38)
[2017-07-15] MEDS: ASPIRIN 81 MG TABLET.DR PO SCH (08:39)
[2017-07-15] MEDS: FERROUS SULFATE 325 MG TABLET PO SCH (08:39)
[2017-07-15] MEDS: SACCHAROMYCES BOULARDII 250 MG CAPSULE PO SCH (08:39)
[2017-07-15] MEDS: MYCOPHENOLATE MOFETIL 500 MG TABLET PO SCH ×2 (08:39→21:05)
[2017-07-15] MEDS: LOSARTAN POTASSIUM 50 MG TABLET PO SCH (08:40)
[2017-07-15] MEDS: amLODIPine BESYLATE 10 MG TABLET PO SCH (08:40)
[2017-07-15] MEDS: POLYETHYLENE GLYCOL 3350 119 GM BTL PO SCH (08:40)
[2017-07-15] MEDS: HYDROXYCHLOROQUINE SULFATE 200 MG TABLET PO SCH (08:40)
[2017-07-15] MEDS: NYSTATIN 60 ML BTL PO SCH ×4 (08:41→21:08)
[2017-07-15] MEDS: CLOBETASOL PROPIONATE 15 APPL TUBE TP SCH ×2 (08:41→21:06)
[2017-07-15] MEDS: TRIAMCINOLONE ACETONIDE 80 APPL TUBE TP SCH ×2 (08:41→21:07)
[2017-07-15] MEDS: KETOROLAC TROMETHAMINE 15 MG/ML VIAL IV PRN (08:46)
[2017-07-15 12:18] LABS: Albumin * 2.6 gm/dl (3.4-5.0); Anion Gap 11.7 mmol/L (6.8-13.8); BUN/Creatinine Ratio 23.3 (9.0-21.6); Bilirubin, Total 0.2 mg/dL (0.0-1.1); Calcium * 8.2 mg/dL (7.9-10.9); Potassium 3.7 mmol/L (3.4-4.6); Total Protein 5.8 gm/dL (6.2-8.2)
[2017-07-15] MEDS: FLUCONAZOLE 200 MG TABLET PO SCH (13:38)
[2017-07-15] MEDS: cefTRIAXone SODIUM 1,000 MG in DEXTROSE 5 % IN WATER 50 ML IV SCH ×2 (17:46)
[2017-07-15] MEDS: SIMVASTATIN 10 MG TABLET PO SCH (21:08)
[2017-07-15] MEDS: SENNOSIDES 8.6 MG TABLET PO SCH (21:08)
[2017-07-15] MEDS: CIPROFLOXACIN HCL 500 MG TABLET PO SCH (21:12)
--- NOTE | 2017-07-15 23:50 | PN ---
Subjective - Date and Time Seen Date: 07/15/17 Time: 17:15 Subjective Narrative: Verónica reports abdominal pain and weakness. No nausea or vomiting. No fever or chills. Objective - Vitals Vitals: Last Vital Signs Temp 37.0 C 07/15/17 22:57 Pulse 65 07/15/17 22:57 Resp 18 07/15/17 22:57 BP 89/41 07/15/17 22:57 Pulse Ox 96 07/15/17 22:57 - Abnormal Lab Findings Abnormal Lab Findings: Abnormal Lab Results 07/15/17 07/15/17 Range/Units 06:12 11:59 Potassium 3.3 L (3.4-4.6) mmol/L Est GFR (Non-Af Amer) 135 H (60-130) mL/min BUN/Creatinine Ratio 27.1 H 23.3 H (9.0-21.6) Total Protein 5.8 L (6.2-8.2) gm/dL Albumin 2.6 L (3.4-5.0) gm/dl - Exam Constitutional: Present: Alert, Oriented x3, Cooperative ENT Exam: Present: hearing grossly normal Respiratory: Present: lungs clear, normal breath sounds Cardiovascular/Chest: Present: regular rate, rhythm, no murmur Abdomen: Present: Normal bowel sounds, soft, nondistended, tender - Suprapubic Skin Exam: Present: normal color, warm/dry, no cyanosis Assessment/Plan - Problems/Diagnosis (1) Hypokalemia Problem: Resolved Narrative: Potassium replaced. Will plan to continue on daily potassium and recheck in AM. If stable ok to discharge to home. (2) UTI (urinary tract infection) Problem: Acute Narrative: Klebsiella on cipro. (3) CREST syndrome Problem: Chronic
[2017-07-16 06:15] LABS: Hematocrit 31.2 % (37.0-47.0); Hemoglobin 10.6 gm/dL (12.5-16.0); Mean Cell Volume 89.7 fl (78-100); Mean Corpuscular Hemoglobin 30.5 pg (27-31); Mean Platelet Volume 8.7 fl (6.0-9.5); Neutrophil # 2.8 K/mm3 (1.3-6.0); Neutrophil % 69.5 % (42-75.0); Platelet Count 251 K/mm3 (150-450); Red Blood Count 3.48 M/mm3 (4.2-5.4); Red Cell Distribution Width 13.4 % (11.5-14.0); White Blood Count 4.1 K/mm3 (4.0-10.5)
[2017-07-16 06:23] LABS: Albumin * 2.3 gm/dl (3.4-5.0); Anion Gap 12.1 mmol/L (6.8-13.8); Bilirubin, Total 0.1 mg/dL (0.0-1.1); Ca. Corrected For Albumin 8.9 mg/dL (8.4-10.2); Calcium * 7.9 mg/dL (7.9-10.9); Carbon Dioxide 23.5 mmol/L (24-32.6); Potassium 3.6 mmol/L (3.4-4.6); Total Protein 5.2 gm/dL (6.2-8.2)
[2017-07-16] MEDS: PANTOPRAZOLE SODIUM 40 MG TABLET.EC PO SCH (07:43)
[2017-07-16] MEDS: LEVOTHYROXINE SODIUM 88 MCG TABLET PO SCH (07:43)
[2017-07-16] MEDS: LOSARTAN POTASSIUM 50 MG TABLET PO SCH (09:05)
[2017-07-16] MEDS: CIPROFLOXACIN HCL 500 MG TABLET PO SCH (09:05)
[2017-07-16] MEDS: amLODIPine BESYLATE 10 MG TABLET PO SCH (09:06)
[2017-07-16] MEDS: POLYETHYLENE GLYCOL 3350 119 GM BTL PO SCH (09:06)
[2017-07-16] MEDS: SACCHAROMYCES BOULARDII 250 MG CAPSULE PO SCH (09:07)
[2017-07-16] MEDS: FERROUS SULFATE 325 MG TABLET PO SCH (09:07)
[2017-07-16] MEDS: MYCOPHENOLATE MOFETIL 500 MG TABLET PO SCH (09:07)
[2017-07-16] MEDS: HYDROXYCHLOROQUINE SULFATE 200 MG TABLET PO SCH (09:07)
[2017-07-16] MEDS: POTASSIUM CHLORIDE 20 MEQ TABLET.SA PO SCH (09:08)
[2017-07-16] MEDS: ASPIRIN 81 MG TABLET.DR PO SCH (09:08)
[2017-07-16] MEDS: FLUCONAZOLE 200 MG TABLET PO SCH (09:08)
[2017-07-16] MEDS: NYSTATIN 60 ML BTL PO SCH (09:09)
[2017-07-16] MEDS: TRIAMCINOLONE ACETONIDE 80 APPL TUBE TP SCH (09:10)
[2017-07-16] MEDS: CLOBETASOL PROPIONATE 15 APPL TUBE TP SCH (09:10)
[2017-07-16 10:08] VITALS: BP 121/65
--- NOTE | 2017-07-16 11:22 | DS ---
(1) Hypokalemia Problem: Acute (2) Oral candidiasis Problem: Acute (3) UTI (urinary tract infection) Problem: Acute (4) CREST syndrome Problem: Chronic Description of Stay: Verónica is a 72 yo female with hx of Crest syndrome that was admitted for significant hypokalemia of 2.0. She was admitted to inpatient status and started on potassium replacement via IV and oral. Urine was also suspicious for UTI along with symptoms of dysuria. Potassium was replaced and remained stable with daily oral potassium. Urine culture ultimately grew out Klebsiella and was treated with Ciprofloxacin. She was discharged to home. Procedures Performed: none Discharge Disposition: Home self care Discharge Location: Home Disposition: Home self-care Condition: Fair Discharge Activity: Activity as tolerated Discharge Diet: General/regular food Referrals: Franca Massey MD [Primary Care Provider] - One Week Problem Oriented Discharge Instructions to Patient/Family: Hypokalemia, Urinary Tract Infection, Adult, [id number] Additional Patient Instructions (free text): -Please make TCM appointment unless longterm discharge. Thank you! Shagufta @ [phone]. Follow up with Dr. Massey on july 22 at 10:15 a.m. - TCM. Prescriptions (Any new or edited meds): Ciprofloxacin HCl [Cipro] 500 mg PO Q12H #20 tablet Fluconazole [Diflucan] 400 mg PO DAILY #28 tablet Nystatin [Mycostatin 100 Mu/Ml Suspension] 5 ml PO QID #1 btl Potassium Chloride [K-Dur] 40 meq PO DAILY #60 tablet.sa traMADol HCL [Tramadol HCl] 50 mg PO Q6H #30 tablet Complete Home Medications List: Complete Home Medication List: Aspirin [Aspirin EC] 81 mg PO DAILY 04/16/16 Ferrous Sulfate [Iron] 650 mg PO DAILY 04/16/16 Hydroxychloroquine Sulfate [Plaquenil] 300 mg PO DAILY 04/16/16 Levothyroxine Sodium [Synthroid] 88 mcg PO DAILY 04/16/16 Omeprazole 40 mg PO BID 04/16/16 Saccharomyces Boulardii [Probiotic] 250 mg PO DAILY 04/16/16 Simvastatin [Zocor] 10 mg PO DAILY 04/16/16 Bifidobacterium Infantis [Align] 4 mg PO DAILY 08/29/16 Polyethylene Glycol 3350 [Miralax] 17 gm PO DAILY 08/29/16 Betamethasone/Propylene Glyc [Betamethasone Dp Aug 0.05% Oin] 15 gm TP BID 07/13 Clobetasol Propionate/Emoll [Clobetasol Emollient 0.05% Crm] 15 gm TP BID Loperamide HCl [Imodium] 2 mg PO Q6H PRN 07/13/17 Mycophenolate Mofetil [Cellcept] 1,000 mg PO BID 07/13/17 Pilocarpine HCl 5 mg PO TID 07/13/17 Triamcinolone Acetonide [Kenalog 0.1%] 1 appl TP BID 07/13/17 Ciprofloxacin HCl [Cipro] 500 mg PO Q12H #20 tablet 07/16/17 Fluconazole [Diflucan] 400 mg PO DAILY #28 tablet 07/16/17 Nystatin [Mycostatin 100 Mu/Ml Suspension] 5 ml PO QID #1 btl 07/16/17 Potassium Chloride [K-Dur] 40 meq PO DAILY #60 tablet.sa 07/16/17 traMADol HCL [Tramadol HCl] 50 mg PO Q6H #30 tablet 07/16/17 Amb Orders for Discharge: Basic Metabolic Panel Time Frame: 07/19/17, Facility: [facility], Location: Laboratory
== END 2017-07-16 14:40 | disposition home or self-care (01) | DRG 690 ==
LOC: ER 15:46 → MS 17:34
PROVIDERS: ADMIT Family Medicine; ATTEND Family Medicine
DX: B37.0 Candidal stomatitis; K59.00 Constipation, unspecified; N39.0 Urinary tract infection, site not specified; E78.5 Hyperlipidemia, unspecified; Z88.8 Allergy status to other drugs, medicaments and biological substances; R30.0 Dysuria; Z79.82 Long term (current) use of aspirin; I73.00 Raynaud's syndrome without gangrene; K21.9 Gastro-esophageal reflux disease without esophagitis; E03.9 Hypothyroidism, unspecified; B96.1 Klebsiella pneumoniae [K. pneumoniae] as the cause of diseases classified elsewhere; M34.1 CR(E)ST syndrome; R31.0 Gross hematuria; E87.6 Hypokalemia

== ENCOUNTER 2018-02-04 21:53 | Inpatient (IN) | payer BC, MEDICARE ==
[2018-02-04] MEDS ORDERED: ASPIRIN 81 MG TAB.CHEW PO ONE (22:13)
[2018-02-04] MEDS ORDERED: ASPIRIN 81 MG TAB.CHEW ONE (22:17)
--- NOTE | 2018-02-04 22:20 | ERNOTE ---
Chest Pain/Cardiac HPI Chief Complaint: Chest Pain Time Seen by Provider: 02/04/18 22:04 Source: patient Exam Limitations: no limitations Immunizations: IMMUNIZATION HX Immunizations Up to Date Yes History of Influenza Vaccine Yes Hx Pneumococcal Vaccination Yes Allergies/Adverse Reactions: Allergies minocycline Adverse Reaction (Severe, Verified 02/04/18 22:10) Black spots inside mouth Home Medications: HOME MEDICATIONS Aspirin [Aspirin EC] 81 mg PO DAILY 04/16/16 [Last Taken 07/13/17] Ferrous Sulfate [Iron] 650 mg PO DAILY 04/16/16 [Last Taken 07/13/17] Hydroxychloroquine Sulfate [Plaquenil] 200 mg PO DAILY 04/16/16 [Last Taken ] Levothyroxine Sodium [Synthroid] 88 mcg PO DAILY 04/16/16 [Last Taken 07/13/17] Omeprazole 40 mg PO DAILY 04/16/16 [Last Taken 07/13/17] Simvastatin [Zocor] 10 mg PO DAILY 04/16/16 [Last Taken 07/13/17] Polyethylene Glycol 3350 [Miralax] 17 gm PO DAILY PRN 08/29/16 [Last Taken 07/13] amlodipine 5 mg tablet 5 mg PO DAILY 12/09/17 [Last Taken Unknown] potassium chloride ER 20 mEq tablet,extended release(part/cryst) 40 meq PO DAILY #180 tab 12/16/17 [Last Taken Unknown] Lactobacillus Combo No.10 [Probiotic] 1 each PO DAILY 02/04/18 [Last Taken Unknown] Nitroglycerin [Nitro-Bid 2% Ointment] 1 inch TD BID PRN 02/04/18 [Last Taken Unknown] Oxybutynin Chloride [Ditropan] 10 mg PO DAILY 02/04/18 [Last Taken Unknown] Pilocarpine HCl 5 mg PO TID 02/04/18 [Last Taken Unknown] Rifaximin [Xifaxan] 200 mg PO BID 02/04/18 [Last Taken Unknown] Narrative: Patient states that about an hour ago while watching TV she started to have chest pain and associated light headedness, no palpitation. She has felt nauseated for about 2-3 days with decreased appetite and abdominal distension. She had multiple prior episodes of bowl obstruction. Two weeks ago she had a colonoscopy for intermittent diarrhea and bowl obstructions at [facility]. She has had at least one episode of atrial fibrillation before Review of Systems - Review of Systems Constitutional: Present: fatigue, malaise. Absent: recent illness ENT: Absent: nose congestion, sore throat Respiratory: Absent: shortness of breath, cough Cardiology: Present: chest pain. Absent: palpitations Gastrointestinal/Abdominal: Present: nausea, abdominal pain, eating less Genitourinary: Present: no symptoms reported. Absent: frequency, dysuria Skin: Absent: rash Neurological: Absent: headache Medical History (Last Reviewed 02/05/18 @ 03:19 by Lyndsey Chung MD) Atrial fibrillation (Resolved) Chronic diarrhea Limited systemic sclerosis Amyloidosis Onset Date: 09/15/16 Anemia Onset Date: Unknown Barretts esophagus Onset Date: Unknown CAD (coronary artery disease) Onset Date: ~2009 Hyperlipidemia Onset Date: Unknown Hypothyroidism (acquired) Onset Date: Unknown Raynauds syndrome Onset Date: Unknown CREST (calcinosis, Raynaud's phenomenon, esophageal dysfunction, sclerodactyly, telangiectasia) Onset Date: 04/23/16 History of carcinoma in situ of breast Onset Date: ~2002 History of intestinal obstruction Onset Date: 08/10/17 History of tubal ligation Onset Date: ~1981 Surgical History: Surgical History (Last Reviewed 02/05/18 @ 03:19 by Lyndsey Chung MD) History of esophagogastroduodenoscopy Onset Date: ~2017 History of lumpectomy of right breast Onset Date: ~2003 History of rectal surgery Onset Date: ~2003 Family History: Family History (Last Reviewed 02/05/18 @ 02:14 by Amy Walker RN) Father Diabetes Heart disease Cancer Mother Heart disease Social History: Preferred Language [place] Do you have any mormonism or No cultural preference? Smoking Status Never smoker Abuse History No History of abuse Psych History Hx of Depression Alcohol Use none Drug Use none Physical Exam - Physical Exam General Appearance: Present: wd/wn, alert, no apparent distress Ears, Nose, Throat: Present: normal pharynx Respiratory: Present: no respiratory distress, normal breath sounds, no accessory muscle use, lungs clear Cardiovascular/Chest: Present: tachycardia Gastrointestinal/Abdominal: Present: soft, tenderness - mild throughout, distended, other - tympanic Extremity Exam: Present: no edema Neurological Exam: Present: alert, oriented, normal mood/affect Skin Exam: Present: normal color, warm/dry ED Progress - Results and Orders Patient's Lab Results:: I have reviewed the patient's lab results. - Vital Signs Patient's Vital Signs:: I have reviewed the patient's vital signs. Vital Signs: Vital Signs 02/04/18 21:58 Temperature 36.5 C Pulse Rate 155 H Respiratory Rate 14 Blood Pressure 94/64 - EKG EKG: NSR, atrial fibrillation, other - rhythm changing between afib and SR EKG read: Interp. by me - X-Ray X-Ray #1 X-Ray: chest - bowel obstruction Interpretation: Interp. by me X-Ray #2 X-Ray: abdomen - bowel obstruction Interpretation: Interp. by me - Progress/Reassessment Chief Complaint: Chest Pain Progress Note-Subjective: 02/04/18 23:[address] Sams, who had seen patient at inpatient stay in [place] to insert NG tube and hold off on CT as patient has recurrent bowel obstructions due to her systemic sklerosis 02/04/18 23:39 discussed with chip Diane to admit for observation for bowel obstruction and intermittent a-fib with RVR first Xray post NG tube insertion shows tube turned back into esophagus repeat Xray: improved position Departure Clinical Impression: SBO (small bowel obstruction), Scleroderma involving bowel, Atrial fibrillation with RVR Chest pain Qualifiers: Chest pain type: unspecified Qualified Code(s): R07.9 - Chest pain, unspecified - Departure Disposition: Still a patient Condition: Fair
[2018-02-04 22:38] LABS: Hematocrit 35.9 % (37.0-47.0); Hemoglobin 11.7 gm/dL (12.5-16.0); Mean Cell Volume 93.2 fl (78-100); Mean Corpuscular Hemoglobin 30.4 pg (27-31); Mean Corpuscular Hgb Conc 32.6 g/dl (32-36); Mean Platelet Volume 8.6 fl (8-12.5); Neutrophil # 5.4 K/mm3 (1.3-6.0); Neutrophil % 74.6 % (42-75.0); Platelet Count 300 K/mm3 (150-450); Red Blood Count 3.85 M/mm3 (4.2-5.4); Red Cell Distribution Width 14.6 % (11.5-14.0); White Blood Count 7.3 K/mm3 (4.0-10.5)
[2018-02-04 22:51] LABS: INR 1.2 INR (0.90-1.10); Partial Thrombolplastin Time 27.3 Seconds (24-32)
[2018-02-04 23:09] LABS: ALT 39 U/L (19-67); AST 32 U/L (0-48); Albumin * 3.2 gm/dl (3.4-5.0); Alkaline Phosphatase * 97 U/L (50-170); Anion Gap 16.3 mmol/L (6.8-13.8); Bilirubin, Total 0.6 mg/dL (0.0-1.1); Blood Urea Nitrogen 13 mg/dL (3-23); Ca. Corrected For Albumin 8.6 mg/dL (8.4-10.2); Calcium * 8.3 mg/dL (7.9-10.9); Carbon Dioxide 19.9 mmol/L (24-32.6); Chloride 105 mmol/L (97-106); Glucose * 66 mg/dL (70-110); Potassium 3.2 mmol/L (3.4-4.6); Sodium 138 mmol/L (132-142); Total Protein 6.4 gm/dL (6.2-8.2); Troponin I Less than 0.017 ng/mL (0.00-0.10)
[2018-02-05] MEDS ORDERED: NORMAL SALINE 1,000 ML IV ONE (00:54)
[2018-02-05] MEDS: POTASSIUM CHLORIDE 40 MEQ in NORMAL SALINE 1,000 ML IV SCH ×2 (07:28→17:19)
--- NOTE | 2018-02-05 09:15 | HP ---
Chief Complaint - Chief Complaint Date of Service: 02/05/18 Time of Service: 09:11 Chief Complaint: chest pain History of Present Illness: Verónica Yousif, is a 72-year-old white female, with previous medical history of scleroderma, and bowel obstructions hyperlipidemia, hypothyroidism, Ayon' s esophagus, who was admitted yesterday on 02/04/2018 for chest pain. A few hours prior to admission while watching television the patient said in the head chest pain associated with lightheadedness. This pressure-like radiating to her stomach area. She felt her heart beating hard but not fast. She has been nauseous and had been having constipation for the last 2-3 days and so she started taking MiraLAX. She said she had a very small bowel movement yesterday. In the emergency room her EKG showed atrial fibrillation intermittently with a heart rate in the low 100s. Her troponin was within normal limits. Her x-ray showed small bowel obstruction with hiatal hernia. She was placed on an NGT and connected to low intermittent suction and was admitted for further evaluation and treatment. Medical History (Last Reviewed 02/05/18 @ 03:19 by Lyndsey Chung MD) Atrial fibrillation (Resolved) Chronic diarrhea Limited systemic sclerosis Amyloidosis Onset Date: 09/15/16 Anemia Onset Date: Unknown Barretts esophagus Onset Date: Unknown CAD (coronary artery disease) Onset Date: ~2009 Hyperlipidemia Onset Date: Unknown Hypothyroidism (acquired) Onset Date: Unknown Raynauds syndrome Onset Date: Unknown CREST (calcinosis, Raynaud's phenomenon, esophageal dysfunction, sclerodactyly, telangiectasia) Onset Date: 04/23/16 History of carcinoma in situ of breast Onset Date: ~2002 History of intestinal obstruction Onset Date: 08/10/17 History of tubal ligation Onset Date: ~1981 Surgical History: Surgical History (Last Reviewed 02/05/18 @ 03:19 by Lyndsey Chung MD) History of esophagogastroduodenoscopy Onset Date: ~2017 History of lumpectomy of right breast Onset Date: ~2003 History of rectal surgery Onset Date: ~2003 Family History: Family History (Last Reviewed 02/05/18 @ 02:14 by Amy Walker RN) Father Diabetes Heart disease Cancer Mother Heart disease Social History: Patient Lives/Resources With Spouse Utilized Preferred Language Citizen Of The [place] Do you have any pentecostal or No cultural preference? Smoking Status Former smoker Have you smoked in the past 12 No months Abuse History No History of abuse Psych History Hx of Depression Alcohol Use none Drug Use none Review Of Systems (GEN) - Review of Systems Generalized/Overall Review: Absent: Chills, Fever Respiratory: Absent: Shortness of Breath Cardiac: Present: Chest Pain. Absent: Edema, Palpitations Abdominal: Present: Nausea, Abdominal Pain. Absent: Vomiting Genitourinary: Absent: Urgency, Frequency Musculoskeletal: Present: Joint Pain Immunizations: IMMUNIZATION HX Immunizations Up to Date Yes History of Influenza Vaccine Yes Hx Pneumococcal Vaccination Yes Allergies/Adverse Reactions: Allergies Allergy/AdvReac Type Severity Reaction Status Date / Time minocycline AdvReac Severe Black Verified 02/04/18 22:10 spots inside mouth Home Medications: HOME MEDICATIONS Aspirin [Aspirin EC] 81 mg PO DAILY 04/16/16 [Last Taken 02/04/18 20:00] Ferrous Sulfate [Iron] 325 mg PO DAILY 04/16/16 [Last Taken 02/04/18 20:00] Hydroxychloroquine Sulfate [Plaquenil] 200 mg PO DAILY 04/16/16 [Last Taken 20:00] Levothyroxine Sodium [Synthroid] 88 mcg PO DAILY 04/16/16 [Last Taken 02/04/18 10:00] Omeprazole 40 mg PO BID 04/16/16 [Last Taken 02/04/18 20:00] Simvastatin [Zocor] 10 mg PO DAILY 04/16/16 [Last Taken 02/04/18 20:00] Polyethylene Glycol 3350 [Miralax] 17 gm PO DAILY PRN 08/29/16 [Last Taken 02/04 20:00] amlodipine 5 mg tablet 5 mg PO DAILY 12/09/17 [Last Taken 02/04/18 20:00] potassium chloride ER 20 mEq tablet,extended release(part/cryst) 40 meq PO DAILY #180 tab 12/16/17 [Last Taken 02/04/18 20:00] Lactobacillus Combo No.10 [Probiotic] 1 each PO DAILY 02/04/18 [Last Taken 02/04 20:00] Nitroglycerin [Nitro-Bid 2% Ointment] 1 inch TD BID PRN 02/04/18 [Last Taken Unknown] Oxybutynin Chloride [Ditropan] 10 mg PO DAILY 02/04/18 [Last Taken 02/04/18 20: 00] Pilocarpine HCl 5 mg PO TID 02/04/18 [Last Taken 02/04/18 20:00] Betamethasone/Propylene Glyc [Diprolene 0.05% Ointment] 15 gm TP BID 02/05/18 [ Last Taken Unknown] Rifaximin [Xifaxan] 550 mg PO BID 02/05/18 [Last Taken Unknown] Exam - Exam Vital Signs: Vital Signs - Last Taken Temp 36.4 C 02/05/18 06:20 Pulse 60 02/05/18 06:20 Resp 16 02/05/18 06:20 BP 106/48 02/05/18 06:20 Pulse Ox 98 02/05/18 06:20 Constitutional: Present: Alert, Oriented x3, Cooperative, Elderly, Thin and frail ENT Exam: Present: hearing grossly normal Eye Exam: bilateral eye: normal inspection, PERRL, EOMI Neck: Present: supple Respiratory: Present: decreased breath sounds, No rales, No wheezing Cardiovascular/Chest: Present: regular rate, rhythm, no JVD, no murmur Abdomen: Present: Normal bowel sounds, soft, nontender, other - tympanitic, distended, hypoactive Extremity: Present: no pedal edema, no calf tenderness Diagnostic Studies: Abnormal Lab Results 02/04/18 02/04/18 02/04/18 Range/Units 22:30 22:30 22:30 RBC 3.85 L (4.2-5.4) M/mm3 Hgb 11.7 L (12.5-16.0) gm/dL Hct 35.9 L (37.0-47.0) % RDW 14.6 H (11.5-14.0) % Lymphocytes % 17.8 L (20-51) % Lymphocytes # 1.29 L (1.5-3.5) k/mm3 PT 12.0 H (9.0-11.0) Seconds INR (Anticoag Therapy) 1.20 H (0.90-1.10) INR Potassium 3.2 L (3.4-4.6) mmol/L Carbon Dioxide 19.9 L (24-32.6) mmol/L Anion Gap 16.3 H (6.8-13.8) mmol/L Random Glucose 66 L (70-110) mg/dL Albumin 3.2 L (3.4-5.0) gm/dl TSH (0.358-3.74) uIU/mL 02/05/18 Range/Units 00:55 RBC (4.2-5.4) M/mm3 Hgb (12.5-16.0) gm/dL Hct (37.0-47.0) % RDW (11.5-14.0) % Lymphocytes % (20-51) % Lymphocytes # (1.5-3.5) k/mm3 PT (9.0-11.0) Seconds INR (Anticoag Therapy) (0.90-1.10) INR Potassium (3.4-4.6) mmol/L Carbon Dioxide (24-32.6) mmol/L Anion Gap (6.8-13.8) mmol/L Random Glucose (70-110) mg/dL Albumin (3.4-5.0) gm/dl TSH 5.601 H (0.358-3.74) uIU/mL Laboratory Results WBC 7.3 K/mm3 (4.0-10.5) 02/04/18 22:30 RBC 3.85 M/mm3 (4.2-5.4) L 02/04/18 22:30 Hgb 11.7 gm/dL (12.5-16.0) L 02/04/18 22:30 Hct 35.9 % (37.0-47.0) L 02/04/18 22:30 MCV 93.2 fl (78-100) 02/04/18 22:30 MCH 30.4 pg (27-31) 02/04/18 22:30 MCHC 32.6 g/dl (32-36) 02/04/18 22:30 RDW 14.6 % (11.5-14.0) H 02/04/18 22:30 Plt Count 300 K/mm3 (150-450) 02/04/18 22:30 MPV 8.6 fl (8-12.5) 02/04/18 22:30 Immature Gran % (Auto) 0.30 % (0.001-0.429) 02/04/18 22:30 Immature Gran # (Auto) 0.02 K/mm3 (0.000-0.0310) 02/04/18 22:30 Neutrophils % 74.6 % (42-75.0) 02/04/18 22:30 Lymphocytes % 17.8 % (20-51) L 02/04/18 22:30 Monocytes % 6.9 % (0.0-9) 02/04/18 22:30 Eosinophils % 0.1 % (0.0-3.0) 02/04/18 22: Basophils % 0.3 % (0.0-1.0) 02/04/18: Nucleated RBC % 0.0 k/mm3 (0-1) 02/04/18 22: Neutrophils # 5.4 K/mm3 (1.3-6.0) 02/04/18: Lymphocytes # 1.29 k/mm3 (1.5-3.5) L 02/04/18: Monocytes # 0.5 k/mm3 (0.0-1.0) 02/04/18: Eosinophils # 0.0 k/mm3 (0.0-0.7) 02/04/18: Absolute Basophils 0.0 k/mm3 (0.0-0.1) 02/04/18 22:30 PT 12.0 Seconds (9.0-11.0) H 02/04/18 22:30 INR (Anticoag Therapy) 1.20 INR (0.90-1.10) H 02/04/18 22:30 PTT ([place]) 27.3 Seconds (24-32) 02/04/18 22:30 Sodium 138 mmol/L (132-142) 02/04/18 22:30 Plasma Sodium 137 mmol/L (130-142) 02/04/18 22:30 Potassium 3.2 mmol/L (3.4-4.6) L 02/04/18 22:30 Chloride 105 mmol/L (97-106) 02/04/18 22:30 Carbon Dioxide 19.9 mmol/L (24-32.6) L 02/04/18 22:30 Anion Gap 16.3 mmol/L (6.8-13.8) H 02/04/18 22:30 BUN 13 mg/dL (3-23) D 02/04/18 22:30 Creatinine 0.65 mg/dL (0.4-1.4) 02/04/18 22:30 Est GFR (Non-Af Amer) 95 mL/min (60-130) D 02/04/18 22:30 BUN/Creatinine Ratio 20.0 (9.0-21.6) 02/04/18 22:30 Random Glucose 66 mg/dL (70-110) L 02/04/18 22:30 Lactic Acid, Venous 1.8 mmol/L (0.4-2.0) 02/04/18 22:30 Calcium 8.3 mg/dL (7.9-10.9) 02/04/18 22:30 Calcium Adj for Albumin 8.6 mg/dL (8.4-10.2) 02/04/18 22:30 Total Bilirubin 0.6 mg/dL (0.0-1.1) 02/04/18 22:30 AST 32 U/L (0-48) 02/04/18 22:30 ALT 39 U/L (19-67) 02/04/18 22:30 Alkaline Phosphatase 97 U/L (50-170) 02/04/18:30 Troponin I Less than 0.017 ng/mL (0.00-0.10) 02/04/18 22:30 Total Protein 6.4 gm/dL (6.2-8.2) 02/04/18 22:30 Albumin 3.2 gm/dl (3.4-5.0) L 02/04/18 22:30 TSH 5.601 uIU/mL (0.358-3.74) H 02/05/18 00:55 Assessment/Plan - Assessment/Plan (1) Small bowel obstruction Assessment: will keep patient NPO but may have ice chips and PO meds and clamp NGT for 2 hours. will correct other risk factors. surgery consulted. Problem: Ruled-out (2) Scleroderma involving bowel Problem: Chronic (3) Hypothyroidism Assessment: will increase her Levothyroxine Problem: Chronic Qualifiers: Qualified Code(s): E03.9 - Hypothyroidism, unspecified (4) Hypokalemia Assessment: IVF with KCl started. Problem: Acute (5) GERD (gastroesophageal reflux disease) Problem: Chronic Qualifiers: Qualified Code(s): K21.9 - Gastro-esophageal reflux disease without esophagitis
[2018-02-05] MEDS: PANTOPRAZOLE SODIUM 40 MG in NORMAL SALINE 100 ML IV SCH (10:18)
[2018-02-05] MEDS: ENOXAPARIN SODIUM 40 MG/0.4 ML SYRG SC SCH (10:20)
[2018-02-05] MEDS ORDERED: NORMAL SALINE 500 ML IV ONE (11:06)
[2018-02-05] MEDS: Pilocarpine Hcl 5 MG PO SCH ×2 (13:15→16:26)
[2018-02-05] MEDS ORDERED: NON-FORMULARY 1 DOSE DOSE (Rifaximin [Xifaxan] 550 MG) PO SCH (21:00)
[2018-02-05] MEDS: PROPYLENE GLYC TP SCH (21:29)
[2018-02-05] MEDS: BETAMETHASONE TP SCH (21:29)
[2018-02-06] MEDS: POTASSIUM CHLORIDE 40 MEQ in NORMAL SALINE 1,000 ML IV SCH ×2 (01:58→10:38)
[2018-02-06] MEDS ORDERED: OXYBUTYNIN CHLORIDE 5 MG TABLET PO SCH (09:00)
[2018-02-06] MEDS: ASPIRIN 81 MG TABLET.DR PO SCH (09:09)
[2018-02-06] MEDS: PANTOPRAZOLE SODIUM 40 MG in NORMAL SALINE 100 ML IV SCH (09:10)
[2018-02-06] MEDS: amLODIPine BESYLATE 5 MG TABLET PO SCH (09:10)
[2018-02-06] MEDS: HYDROXYCHLOROQUINE SULFATE 200 MG TABLET PO SCH (09:10)
[2018-02-06] MEDS: PROPYLENE GLYC TP SCH ×2 (09:10→21:20)
[2018-02-06] MEDS: BETAMETHASONE TP SCH ×2 (09:10→21:20)
[2018-02-06] MEDS: LEVOTHYROXINE SODIUM 100 MCG TABLET PO SCH (09:10)
[2018-02-06] MEDS: ENOXAPARIN SODIUM 40 MG/0.4 ML SYRG SC SCH (09:11)
[2018-02-06] MEDS: Pilocarpine Hcl 5 MG PO SCH ×3 (09:27→16:51)
--- NOTE | 2018-02-06 09:45 | PN ---
Subjective - Date and Time Seen Date: 02/06/18 Time: 09:41 Subjective Narrative: Patient still has no BM but thinks she had passage of gas last night x 1 only. Objective - Review of Systems Generalized/Overall Review: Reports: Weakness. Denies: Chills, Fever Respiratory: Denies: Cough, Shortness of Breath, Orthopnea Cardiac: Denies: Chest Pain, Edema, Palpitations Abdominal: Reports: Nausea, Abdominal Pain - discomfort. Denies: Vomiting Genitourinary Symptoms: Denies: Urgency, Frequency - Vitals Vitals: Last Vital Signs Temp 36.4 C 02/06/18 09:08 Pulse 60 02/06/18 09:10 Resp 16 02/06/18 09:08 BP 106/48 02/06/18 09:10 Pulse Ox 100 02/06/18 09:08 - Exam Constitutional: Present: Alert, Oriented x3, Cooperative, Elderly, Thin and frail ENT Exam: Present: hearing grossly normal Neck: Present: supple Respiratory: Present: decreased breath sounds, No rales, No wheezing Cardiovascular/Chest: Present: regular rate, rhythm, no JVD, no murmur Abdomen: Present: soft, nondistended, tender - slightly, hypoactive. Absent: rebound tenderness Extremity: Present: no pedal edema, no calf tenderness Assessment/Plan - Problems/Diagnosis (1) Small bowel obstruction Problem: Ruled-out (2) Scleroderma involving bowel Problem: Chronic (3) Hypothyroidism Problem: Chronic Qualifiers: Qualified Code(s): E03.9 - Hypothyroidism, unspecified (4) Hypokalemia Problem: Acute Narrative: will get a BMP. (5) GERD (gastroesophageal reflux disease) Problem: Chronic Qualifiers: Qualified Code(s): K21.9 - Gastro-esophageal reflux disease without esophagitis
--- NOTE | 2018-02-06 09:59 | CONS ---
[facility] - General Date of Service: 02/05/18 Narrative: She presented to the emergency room with upper chest discomfort and feeling hot and sweaty. She was found to have atrial fibrillation. Chest x-ray raised concerns over small bowel obstruction and an abdominal series was obtained. There were very large loops of small bowel similar to her previous studies and she was admitted for nasogastric suction. Source: patient, RN/MD, RN notes reviewed, old records Exam Limitations: no limitations - History of Present Illness Initial Comments: She carries a diagnosis of limited systemic sclerosis, limited cutaneous nodular amyloidosis (CREST syndrome) for which she is followed at the [facility]. She has been admitted to this institution with small bowel obstructions in June, July, and November. These resolved with nasogastric suction. 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 She has been treated for Shyla esophagitis. She has a large hiatal hernia with majority of the stomach in the chest. She has had C. difficile which was treated apparently in May. She also had an admission in May or June for low potassium at the [facility]. The colonoscopy in October was limited due to the large amount of retained stool and the exam was only accomplished to the ascending colon. She apparently had a repeat exam on 01/21/2018. She says "they got all the way around". A polyp was removed "but nothing to worry about". She said she had a copy of that report with her, but I cannot find it in the record She has a long history of irregular bowels with diarrhea and constipation. She had a failed transabdominal operation for rectal prolapse. There has apparently been some consideration of giving her colostomy due to continence issues. She states that over the last couple weeks she has been more distended and had more trouble with her bowels. Last night her abdomen was "tense is a drama" however today she says it is much softer. She denies abdominal pain. She has had no significant bowel movement or gas per rectum Allergies/Adverse Reactions: Allergies minocycline Adverse Reaction (Severe, Verified 02/04/18 22:10) Black spots inside mouth Home Medications: Home Medications Medication Instructions Recorded Last Taken Aspirin [Aspirin EC] 81 mg PO DAILY 04/16/16 02/04/18 20:00 Ferrous Sulfate [Iron] 325 mg PO DAILY 04/16/16 02/04/18 20:00 Hydroxychloroquine Sulfate 200 mg PO DAILY 04/16/16 02/04/18 20:00 [Plaquenil] Levothyroxine Sodium [Synthroid] 88 mcg PO DAILY 04/16/16 02/04/18 10:00 Omeprazole 40 mg PO BID 04/16/16 02/04/18 20:00 Simvastatin [Zocor] 10 mg PO DAILY 04/16/16 02/04/18 20:00 Polyethylene Glycol 3350 [Miralax] 17 gm PO DAILY PRN 08/29/16 02/04/18 20:00 amlodipine 5 mg tablet 5 mg PO DAILY 12/09/17 02/04/18 20:00 potassium chloride ER 20 mEq 40 meq PO DAILY #180 tab 12/16/17 02/04/18 20:00 tablet,extended release(part/cryst) Lactobacillus Combo No.10 1 each PO DAILY 02/04/18 02/04/18 20:00 [Probiotic] Nitroglycerin [Nitro-Bid 2% 1 inch TD BID PRN 02/04/18 Unknown Ointment] Oxybutynin Chloride [Ditropan] 10 mg PO DAILY 02/04/18 02/04/18 20:00 Pilocarpine HCl 5 mg PO TID 02/04/18 02/04/18 20:00 Betamethasone/Propylene Glyc 15 gm TP BID 02/05/18 Unknown [Diprolene 0.05% Ointment] Rifaximin [Xifaxan] 550 mg PO BID 02/05/18 Unknown Procedures Excision of axillary lymph node (06/27/02) Local excision of lesion of breast (06/27/02) Medications - Medications Current Medications: Current Medications Amlodipine Besylate (Norvasc) 5 mg PO DAILY DIANE Stop: 03/08/18 09:01 Last Admin: 02/06/18 09:10 Dose: 5 mg Aspirin (Aspirin Enteric Coated) 81 mg PO DAILY DIANE Stop: 03/08/18 09:01 Last Admin: 02/06/18 09:09 Dose: 81 mg Enoxaparin Sodium (Lovenox) 40 mg SC Q24H DIANE Stop: 03/07/18 10:01 Last Admin: 02/06/18 09:11 Dose: 40 mg Hydroxychloroquine Sulfate (Plaquenil) 200 mg PO DAILY DIANE Stop: 03/08/18 09:01 Last Admin: 02/06/18 09:10 Dose: 200 mg Potassium Chloride 40 meq/ (Sodium Chloride) 1,020 mls @ 125 mls/hr IV .Q8H10M DIANE Stop: 03/07/18 07:01 Last Admin: 02/06/18 01:58 Dose: 125 mls/hr Pantoprazole Sodium 40 mg/ (Sodium Chloride) 100 mls @ 400 mls/hr IV Q24H DIANE Stop: 03/07/18 09:46 Last Admin: 02/06/18 09:10 Dose: 400 mls/hr Levothyroxine Sodium (Synthroid) 100 mcg PO DAILY@0700 DIANE Stop: 03/08/18 07:01 Last Admin: 02/06/18 09:10 Dose: 100 mcg Betamethasone/Propylene Glyc [ Diprolene 0.05% Ointment] 15 gm TP BID DIANE Stop: 03/07/18 21:01 Last Admin: 02/06/18 09:10 Dose: 15 gm Pilocarpine Hcl 5 Mg 5 mg PO TID DIANE Stop: 03/07/18 13:01 Last Admin: 02/06/18 09:27 Dose: 5 mg Review of Systems - Review of Systems Generalized/Overall Review: Present: Weakness. Absent: Chills, Fever EENTM: Present: No Symptoms Reported Respiratory: Absent: Cough, Shortness of Breath Cardiac: Present: Other - She states that when she has A. fib she gets hot and sweaty Abdominal: Present: Other - She feels less distended than yesterday. There is no abdominal pain. She has had no bowel movement or flatus to speak of Genitourinary: Present: No Symptoms Reported Musculoskeletal: Present: No Symptoms Reported Neurological: Present: No Symptoms Reported Skin: Present: No Symptoms Reported Physical Examination - Exam Vital Signs: Vital Signs - Last Taken Temp 37.0 C 02/05/18 10:57 Pulse 63 02/05/18 10:57 Resp 16 02/05/18 10:57 BP 80/32 02/05/18 10:57 Pulse Ox 94 02/05/18 10:57 O2 Oxygen Delivery Method Room Air Constitutional: Present: Alert, Oriented x3, Cooperative, Thin and frail ENT Exam: Present: normal ENT inspection Neck: Present: normal inspection Breasts: Present: Exam deferred Respiratory: Present: no respiratory distress Cardiovascular/Chest: Present: other - Her pulse is slow Abdomen: Present: soft, nontender, other - She has a healed lower abdominal incision with palpable fascial sutures but no hernia, distended. Absent: rebound tenderness /Rectal: Present: Exam deferred Extremity: Present: normal inspection Skin Exam: Present: warm/dry Neurologic: Present: manager reporting II-XII nml as tested, no motor/sensory deficits Appearance: Present: appropriate appearance, appropriate insight Eye contact: Present: cooperative, good eye contact Thoughts: Present: normal thought pattern - Results and Findings: Narrative: Her initial x-rays do show distended loops of small bowel with air-fluid levels. The finding of the NG tube coiled back is due to the fact that majority of her stomach is in the chest. - Assessments/Findings (1) SBO (small bowel obstruction) Diagnosis(s): It would be helpful to have the GI office notes from the [facility] to see if they have an opinion on the possible small bowel obstruction. In the past it appears that the GI motility has been attributed to her CREST, however she could have a small bowel obstruction due to adhesions and that would be surgically correctable. She would not be a candidate for operation at this institution given her cardiac comorbidity Unfortunately the previous CT scans have not been helpful in defining a transition point--- and she has never had a normal bowel gas pattern on any x- rays obtained here. To define the problem this may ultimately require a small bowel follow-through. She has had improvement with nasogastric decompression, and this should be continued. She could be maintained on her p.o. medications with NG clamping It may be useful to repeat a CT scan as the Gastroview may provide information on a transition point and also help her bowels move. Will continue to follow the patient Problem: Acute
[2018-02-06] MEDS ORDERED: DIATRIZOATE MEGLUMINE, SODIUM 30 ML BTL PO ONE ×2 (10:06→14:12)
[2018-02-06 10:31] LABS: Hemoglobin 13.1 gm/dL (12.5-16.0); Mean Cell Volume 93.9 fl (78-100); Mean Corpuscular Hemoglobin 30.8 pg (27-31); Mean Corpuscular Hgb Conc 32.8 g/dl (32-36); Mean Platelet Volume 8.6 fl (8-12.5); Neutrophil # 6.9 K/mm3 (1.3-6.0); Neutrophil % 86.6 % (42-75.0); Platelet Count 353 K/mm3 (150-450); Red Blood Count 4.26 M/mm3 (4.2-5.4); Red Cell Distribution Width 15.2 % (11.5-14.0); White Blood Count 7.9 K/mm3 (4.0-10.5)
[2018-02-06 10:37] LABS: Anion Gap 21.5 mmol/L (6.8-13.8); BUN/Creatinine Ratio 21.8 (9.0-21.6); Calcium * 8.4 mg/dL (7.9-10.9); Carbon Dioxide 12.9 mmol/L (24-32.6); Magnesium 1.1 mg/dL (1.2-2.8); Potassium 4.4 mmol/L (3.4-4.6)
[2018-02-06] MEDS ORDERED: DEXTROSE 5%-NORMAL SALINE 1,000 ML IV PRN (10:55)
[2018-02-06] MEDS: POTASSIUM CHLORIDE 20 MEQ in DEXTROSE 5%-NORMAL SALINE 990 ML IV SCH (13:18)
[2018-02-06] MEDS ORDERED: WATER IV ONE (14:30)
[2018-02-06] MEDS ORDERED: DEXTROSE 10% IV ONE (14:30)
--- NOTE | 2018-02-06 17:36 | PN ---
Progess Note - Interim Date: 02/06/18 Time: 17:35 Narrative: 02/06/18 17:[address] will be repeated at 2000 tonight. Will await results to determine further plan. I reviewed current CT images that have been done so far and talked with radiology. They will call me with her report.
[2018-02-07] MEDS: POTASSIUM CHLORIDE 20 MEQ in DEXTROSE 5%-NORMAL SALINE 990 ML IV SCH ×2 (02:51→17:39)
[2018-02-07 06:20] LABS: Hematocrit 32.4 % (37.0-47.0); Hemoglobin 10.9 gm/dL (12.5-16.0); Mean Corpuscular Hemoglobin 30.6 pg (27-31); Mean Corpuscular Hgb Conc 33.6 g/dl (32-36); Mean Platelet Volume 8.9 fl (8-12.5); Neutrophil # 3.6 K/mm3 (1.3-6.0); Neutrophil % 73.3 % (42-75.0); Platelet Count 273 K/mm3 (150-450); Red Blood Count 3.56 M/mm3 (4.2-5.4); White Blood Count 4.9 K/mm3 (4.0-10.5)
[2018-02-07 06:28] LABS: Anion Gap 12.9 mmol/L (6.8-13.8); BUN/Creatinine Ratio 12.7 (9.0-21.6); Calcium * 7.3 mg/dL (7.9-10.9); Carbon Dioxide 18.2 mmol/L (24-32.6); Estimated Creat Clear 62.9; Potassium 3.1 mmol/L (3.4-4.6)
[2018-02-07] MEDS: LEVOTHYROXINE SODIUM 100 MCG TABLET PO SCH (08:06)
[2018-02-07] MEDS: HYDROXYCHLOROQUINE SULFATE 200 MG TABLET PO SCH (08:07)
[2018-02-07] MEDS: ASPIRIN 81 MG TABLET.DR PO SCH (08:07)
[2018-02-07] MEDS: amLODIPine BESYLATE 5 MG TABLET PO SCH (08:07)
[2018-02-07] MEDS: Pilocarpine Hcl 5 MG PO SCH ×3 (08:08→16:14)
[2018-02-07] MEDS: BETAMETHASONE TP SCH ×2 (08:09→20:47)
[2018-02-07] MEDS: PROPYLENE GLYC TP SCH ×2 (08:09→20:47)
[2018-02-07] MEDS: ENOXAPARIN SODIUM 40 MG/0.4 ML SYRG SC SCH (10:07)
[2018-02-07] MEDS: PANTOPRAZOLE SODIUM 40 MG in NORMAL SALINE 100 ML IV SCH (10:07)
--- NOTE | 2018-02-07 10:25 | PN ---
Subjective - Date and Time Seen Date: 02/07/18 Time: 10:22 Subjective Narrative: Patient NAD. Afebrile. Had low BS yesterday, asymptomatic. Objective - Review of Systems Generalized/Overall Review: Denies: Chills, Fever Respiratory: Denies: Cough, Shortness of Breath, Orthopnea Cardiac: Denies: Chest Pain, Edema, Palpitations Abdominal: Denies: Nausea, Vomiting Genitourinary Symptoms: Denies: Urgency, Frequency - Vitals Vitals: Last Vital Signs Temp 36.6 C 02/07/18 08:22 Pulse 58 L 02/07/18 08:48 Resp 16 02/07/18 08:22 BP 108/56 02/07/18 08:22 Pulse Ox 96 02/07/18 08:22 - Abnormal Lab Findings Abnormal Lab Findings: Abnormal Lab Results 02/06/18 02/06/18 02/07/18 Range/Units 10:22 10:22 06:00 RBC (4.2-5.4) M/mm3 Hgb (12.5-16.0) gm/dL Hct (37.0-47.0) % RDW 15.2 H (11.5-14.0) % Neutrophils % 86.6 H (42-75.0) % Lymphocytes % 10.4 L (20-51) % Neutrophils # 6.9 H (1.3-6.0) K/mm3 Lymphocytes # 0.82 L (1.5-3.5) k/mm3 Potassium 3.1 L D (3.4-4.6) mmol/L Chloride 110 H 110 H (97-106) mmol/L Carbon Dioxide 12.9 L 18.2 L (24-32.6) mmol/L Anion Gap 21.5 H (6.8-13.8) mmol/L BUN/Creatinine Ratio 21.8 H (9.0-21.6) Random Glucose 32 L* D (70-110) mg/dL Calcium 7.3 L (7.9-10.9) mg/dL Magnesium 1.1 L (1.2-2.8) mg/dL 02/07/18 Range/Units 06:00 RBC 3.56 L (4.2-5.4) M/mm3 Hgb 10.9 L (12.5-16.0) gm/dL Hct 32.4 L (37.0-47.0) % RDW 15.0 H (11.5-14.0) % Neutrophils % (42-75.0) % Lymphocytes % 18.8 L (20-51) % Neutrophils # (1.3-6.0) K/mm3 Lymphocytes # 0.93 L (1.5-3.5) k/mm3 Potassium (3.4-4.6) mmol/L Chloride (97-106) mmol/L Carbon Dioxide (24-32.6) mmol/L Anion Gap (6.8-13.8) mmol/L BUN/Creatinine Ratio (9.0-21.6) Random Glucose (70-110) mg/dL Calcium (7.9-10.9) mg/dL Magnesium (1.2-2.8) mg/dL - Exam Constitutional: Present: Alert, Oriented x3, Cooperative ENT Exam: Present: hearing grossly normal Neck: Present: supple Respiratory: Present: decreased breath sounds, No rales, No wheezing Cardiovascular/Chest: Present: regular rate, rhythm, no JVD, no murmur Abdomen: Present: soft, nontender, hypoactive. Absent: guarding, rebound tenderness Extremity: Present: no pedal edema, no calf tenderness Assessment/Plan - Problems/Diagnosis (1) Mesenteric hernia Problem: Acute Narrative: CTS showing possible transverse mesenteric hernia- dilated small bowel/ ascending colon with decompresseddescending and sigmoid colon. Surgery is on her case. (2) Scleroderma involving bowel Problem: Chronic (3) Hypothyroidism Problem: Chronic Qualifiers: Hypothyroidism type: acquired Qualified Code(s): E03.9 - Hypothyroidism, unspecified (4) Hypokalemia Problem: Acute (5) GERD (gastroesophageal reflux disease) Problem: Chronic Qualifiers: Esophagitis presence: without esophagitis Qualified Code(s): K21.9 - Gastro -esophageal reflux disease without esophagitis
[2018-02-07] MEDS: POTASSIUM CHLORIDE IN WATER 100 ML IV SCH ×2 (10:57→14:04)
[2018-02-07] MEDS: BISACODYL 5 MG TABLET.DR PO SCH (16:14)
--- NOTE | 2018-02-07 16:50 | ANES ---
Anesthesia Procedure Note Procedure Note: ANESTHESIA PROCEDURE NOTE Date of procedure: 02/07/2018. Time of procedure:[]. 1640 Performed by: Dylan Nevarez CRNA Authors Motivational: [] None . Preprocedure diagnosis: []. Difficult IV access. Small bowel obstruction. Post procedure diagnosis: Same. Procedure:[] IV start Indications: []. Difficult IV access Findings: [] 22-gauge Angiocath IV started and patient's right wrist. EBL: Minimal. Fluids: N/A. Specimen: N/A. Post procedure condition: The patient tolerated the procedure well. No complications were noted. Thank you for this consultation Dylan Nevarez CRNA
[2018-02-07] MEDS ORDERED: ONDANSETRON HCL/PF 2 MG/ML VIAL IV PRN (19:32)
[2018-02-08] MEDS: POTASSIUM CHLORIDE 20 MEQ in DEXTROSE 5%-NORMAL SALINE 990 ML IV SCH (01:50)
[2018-02-08] MEDS: LEVOTHYROXINE SODIUM 100 MCG TABLET PO SCH (07:00)
--- NOTE | 2018-02-08 08:24 | PN ---
Progess Note - Interim Date: 02/08/18 Time: 08:23 Narrative: 02/08/18 08:23 patient NAD. afebrile. going for AXR, flat and upright. will discuss with surgery.
[2018-02-08] MEDS: HYDROXYCHLOROQUINE SULFATE 200 MG TABLET PO SCH (08:41)
[2018-02-08] MEDS: ASPIRIN 81 MG TABLET.DR PO SCH (08:41)
[2018-02-08] MEDS: PROPYLENE GLYC TP SCH ×2 (08:42→20:17)
[2018-02-08] MEDS: Pilocarpine Hcl 5 MG PO SCH ×3 (08:42→20:17)
[2018-02-08] MEDS: amLODIPine BESYLATE 5 MG TABLET PO SCH (08:42)
[2018-02-08] MEDS: BETAMETHASONE TP SCH ×2 (08:42→20:17)
[2018-02-08] MEDS: BISACODYL 5 MG TABLET.DR PO SCH (08:42)
[2018-02-08] MEDS: ENOXAPARIN SODIUM 40 MG/0.4 ML SYRG SC SCH (10:23)
[2018-02-08] MEDS: PANTOPRAZOLE SODIUM 40 MG in NORMAL SALINE 100 ML IV SCH (14:53)
--- NOTE | 2018-02-08 17:36 | PN ---
Subjective - Date and Time Seen Date: 02/08/18 Time: 17:33 Subjective Narrative: 02/08/18 08:23 patient NAD. afebrile. going for AXR, flat and upright. will discuss with surgery. Objective - Review of Systems Generalized/Overall Review: Denies: Chills, Fever Respiratory: Denies: Cough, Shortness of Breath Cardiac: Denies: Chest Pain, Edema, Palpitations Abdominal: Denies: Nausea, Vomiting Genitourinary Symptoms: Denies: Urgency, Frequency - Vitals Vitals: Last Vital Signs Temp 36.6 C 02/08/18 15:14 Pulse 58 L 02/08/18 15:14 Resp 16 02/08/18 15:14 BP 100/55 02/08/18 15:14 Pulse Ox 97 02/08/18 15:14 Assessment/Plan - Problems/Diagnosis (1) Mesenteric hernia Problem: Acute Narrative: discussed with surgery- unlikely. AXR done. plan is to do endoscopic decompression in a.m. (2) Scleroderma involving bowel Problem: Chronic (3) Hypothyroidism Problem: Chronic Qualifiers: Hypothyroidism type: acquired Qualified Code(s): E03.9 - Hypothyroidism, unspecified (4) Hypokalemia Problem: Acute (5) GERD (gastroesophageal reflux disease) Problem: Chronic Qualifiers: Esophagitis presence: without esophagitis Qualified Code(s): K21.9 - Gastro -esophageal reflux disease without esophagitis (6) Hypoglycemia Problem: Resolved
--- NOTE | 2018-02-08 17:45 | ANES ---
Anesthesia Procedure Note Procedure Note: ANESTHESIA PROCEDURE NOTE Date of Procedure: 02/08/2018. Time of procedure: 1500. Performed by: Tyron Montez CRNA Design Painter: None. Preprocedure diagnosis: Difficult IV access. Post procedure diagnosis: Same. Procedure: Peripheral vein IV insertion. Indications: This is a 72-year-old female in need of an IV insertion for IV sedation related to sigmoidoscopy. Findings: See below. Details of the procedure: Skin over the intended target site was cleansed with alcohol. A 22-gauge IV catheter was inserted into a right hand vein. A sterile dressing was applied over the insertion site. The line was then flushed with sterile saline solution. EBL: Minimal. Fluids: N/A. Specimen: N/A. Post procedure condition: The patient tolerated the procedure well. No complications were noted. Thank you for this consultation. Tyron Montez CRNA
--- NOTE | 2018-02-08 17:46 | ANES ---
Anesthesia Pre Procedure Eval Vitals/Labs: Last Vital Signs Temp 36.6 C 02/08/18 15:14 Pulse 58 L 02/08/18 15:14 Resp 16 02/08/18 15:14 BP 100/55 02/08/18 15:14 Pulse Ox 97 02/08/18 15:14 HOME MEDICATIONS Aspirin [Aspirin EC] 81 mg PO DAILY 04/16/16 [Last Taken 02/04/18 20:00] Ferrous Sulfate [Iron] 325 mg PO DAILY 04/16/16 [Last Taken 02/04/18 20:00] Hydroxychloroquine Sulfate [Plaquenil] 200 mg PO DAILY 04/16/16 [Last Taken 20:00] Levothyroxine Sodium [Synthroid] 88 mcg PO DAILY 04/16/16 [Last Taken 02/04/18 10:00] Omeprazole 40 mg PO BID 04/16/16 [Last Taken 02/04/18 20:00] Simvastatin [Zocor] 10 mg PO DAILY 04/16/16 [Last Taken 02/04/18 20:00] Polyethylene Glycol 3350 [Miralax] 17 gm PO DAILY PRN 08/29/16 [Last Taken 02/04 20:00] amlodipine 5 mg tablet 5 mg PO DAILY 12/09/17 [Last Taken 02/04/18 20:00] potassium chloride ER 20 mEq tablet,extended release(part/cryst) 40 meq PO DAILY #180 tab 12/16/17 [Last Taken 02/04/18 20:00] Lactobacillus Combo No.10 [Probiotic] 1 each PO DAILY 02/04/18 [Last Taken 02/04 20:00] Nitroglycerin [Nitro-Bid 2% Ointment] 1 inch TD BID PRN 02/04/18 [Last Taken Unknown] Oxybutynin Chloride [Ditropan] 10 mg PO DAILY 02/04/18 [Last Taken 02/04/18 20: 00] Pilocarpine HCl 5 mg PO TID 02/04/18 [Last Taken 02/04/18 20:00] Betamethasone/Propylene Glyc [Diprolene 0.05% Ointment] 15 gm TP BID 02/05/18 [ Last Taken Unknown] Rifaximin [Xifaxan] 550 mg PO BID 09/15/18 [Last Taken Unknown] Allergies/Adverse Reactions: Allergies Allergy/AdvReac Type Severity Reaction Status Date / Time minocycline AdvReac Severe Black Verified 02/04/18 22:10 spots inside mouth - Planned Procedure Planned Procedure: Sigmoidoscopy Medication List Reviewed:: Yes Allergies Verified: Yes Medical History (Last Reviewed 02/05/18 @ 03:19 by Lyndsey Chung MD) Atrial fibrillation (Resolved) Chronic diarrhea Limited systemic sclerosis Amyloidosis Onset Date: 09/15/16 Anemia Onset Date: Unknown Barretts esophagus Onset Date: Unknown CAD (coronary artery disease) Onset Date: ~2009 Hyperlipidemia Onset Date: Unknown Hypothyroidism (acquired) Onset Date: Unknown Raynauds syndrome Onset Date: Unknown CREST (calcinosis, Raynaud's phenomenon, esophageal dysfunction, sclerodactyly, telangiectasia) Onset Date: 04/23/16 History of carcinoma in situ of breast Onset Date: ~2002 History of intestinal obstruction Onset Date: 08/10/17 History of tubal ligation Onset Date: ~1981 Surgical History (Last Reviewed 02/05/18 @ 03:19 by Lyndsey Chung MD) History of esophagogastroduodenoscopy Onset Date: ~2017 History of lumpectomy of right breast Onset Date: ~2003 History of rectal surgery Onset Date: ~2003 Family History (Last Reviewed 02/05/18 @ 02:14 by mAy Walker RN) Father Diabetes Heart disease Cancer Mother Heart disease - Family Anesthesia History Family History:: no untoward family reactions to anesthesia, no familial bleeding tendencies, no family history of clotting disorders, no family history of premature - Airway/Neck/Teeth Within Normal Limits:: Yes Teeth Condition: Intact Mallampatti Score: 3 Thyromental (T-M) distance: > 6 cm Mandibulo Hyoid distance: > 3 cm - Respiratory Respiratory: lungs clear Discussed smoking cessation including day of surgery: No Sleep Apnea currently treated: No Sleep Apnea by current assessment: No Discussed Risks/Treatment of GILBERTO: No - Cardiovascular Tolerates Activity: Poor Heart Sounds: S1 & S2, Irregular - Anesthesia Assessment and Plan ASA Class: PS, III, E Anesthesia Type Plan: MAC
--- NOTE | 2018-02-08 17:51 | ANES ---
Anesthesia Procedure Note Procedure Note: ANESTHESIA PROCEDURE NOTE Date of Procedure: 02/08/2018. Time of procedure: 1700. Performed by: Tyron Montez CRNA Banking Pin Adjuster: None. Preprocedure diagnosis: Bowel obstruction. Post procedure diagnosis: Same. Procedure: Attempted Peripheral vein IV insertion 6. Indications: Is a 72-year-old female who came to the operating room for sigmoidoscopy with no IV access. A peripheral IV was placed approximately 2 hours prior to procedure. It somehow been partially removed to the point of leaking and was discontinued by nursing staff. Findings: See below. Details of the procedure: Skin over the intended target site was cleansed with alcohol. Multiple attempts were made to insert a peripheral IV in patient's bilateral hands and arms. Ultrasound guidance was used as well as infrared skin or for IV insertion. All attempts failed. Patient was evaluated for external jugular and internal jugular IVs. No venous access could be determined with visual inspection and ultrasound. The procedure was aborted. Dr. Sams is present and aware. EBL: Minimal. Fluids: N/A. Specimen: N/A. Post procedure condition: The patient tolerated the procedure well. No complications were noted. Thank you for this consultation. Tyron Montez CRNA
[2018-02-08] MEDS ORDERED: ONDANSETRON 4 MG TAB.RAPDIS PO PRN (19:02)
--- NOTE | 2018-02-08 19:25 | PN ---
Dictated Progress Note - Date and Time Seen: Date: 02/08/18 Time: 13:30 - Progress Note Narrative: Vital Signs - Last Taken Temp 36.5 C 02/08/18 10:21 Pulse 65 02/08/18 10:21 Resp 16 02/08/18 10:21 BP 112/51 02/08/18 10:21 Pulse Ox 98 02/08/18 10:21 She had some vomiting last night after a clear liquid trial, and her nasogastric tube was reconnected to suction. X-rays reveal gaseous distention throughout the abdomen, however whether this is large or small bowel is unclear. There is contrast visible in nondistended small bowel. She denies abdominal pain, and states that her abdomen is still less distended than when she was admitted. She has had multiple liquid bowel movements today. IMPRESSION: It is possible that the gaseous distention is all dysfunctional colon, as she has had multiple bowel movements and the contrast in the small bowel does not look as if that is distended. She has intermittent nausea and vomiting on a regular basis which is due to her large hiatal hernia and esophageal/gastric dysfunction from CREST. RECOMMENDATION: I discussed what was involved with a decompression sigmoidoscopy/colonoscopy. The risks and benefits of that procedure were explained. I would recommend an x-ray immediately before the procedure, with an x-ray immediately after the procedure to ascertain the difference in the gaseous distention. This may differentiate between colonic dysfunction and a bowel obstruction. After an interactive discussion with her and her daughter, their questions were answered to their apparent satisfaction, and the patient is given informed consent for sigmoidoscopy/colonoscopy for decompression. Reviewed and electronically signed
--- NOTE | 2018-02-08 19:35 | OR ---
Operative Report - Dictated Report Narrative: OPERATIVE REPORT DATE OF OPERATION: 02/08/2018 PREOPERATIVE DIAGNOSIS: Possible bowel obstruction POSTOPERATIVE DIAGNOSIS: Dilated colon with no obstruction seen to 90+ cm OPERATION: Colonoscopy to 90+ cm with decompression SURGEON: Saman Sams MD ANESTHESIA: None INDICATIONS FOR PROCEDURE: The patient is a 72-year-old female who was admitted on 02/04/2018 with presumed small bowel obstruction. She has had multiple previous admissions for the same problem. Abdominal x-rays and CAT scan are indeterminate as to the etiology of the obstruction. After discussion of options, consensus is to proceed with a decompressive colonoscopy with postprocedure x-rays to more precisely determine the etiology of her distention. FINDINGS: No anal sphincter tone. Dilated, featureless, atonic colon with no obstruction seen to 90+ cm. Bowel left in a decompressed state. NARRATIVE OF PROCEDURE: The patient was identified, and prior to the procedure, a multidisciplinary timeout was observed. With the patient in the left lateral position with appropriate padding and monitoring, the perineum was inspected. There was perianal maceration and erythema which improved after drying the area. There were anal changes compatible with her previous operation for rectal prolapse. Digital exam revealed complete absence of sphincter tone. The rectum itself was empty. The flexible fiberoptic colonoscope was inserted into the rectum. The rectal mucosa and submucosal vascular pattern appeared normal. There was a large amount of green particulate and liquid stool present. The scope was then advanced proximally using no insufflation. A capacious featureless sigmoid colon was entered. The scope could then be maneuvered proximally until approximately 1 m scope of been introduced. At this juncture the colon was then decompressed with suction, delivering gas from proximally by external manual compression on the abdomen. When the proximal colon was felt to have been decompressed, the scope was then slowly withdrawn with intermittent suction leaving collapsed colon behind the retreating scope. No colonic mucosal lesions were identified. The scope was withdrawn to the level of the rectum, withdrawn from the patient and the procedure terminated. The patient tolerated the procedure well without complication and was transferred back to the floor awake and in stable condition. The patient remained stable throughout a period of postoperative observation. She denied abdominal pain, and stated that her abdomen was flatter than it has been a long time. Her nasogastric tube was removed without difficulty. Reviewed and electronically signed
--- NOTE | 2018-02-08 19:40 | PN ---
Dictated Progress Note - Date and Time Seen: Date: 02/08/18 Time: 19:35 - Progress Note Narrative: Vital Signs - Last Taken Temp 36.6 C 02/08/18 15:14 Pulse 56 L 02/08/18 17:47 Resp 18 02/08/18 17:47 BP 112/51 02/08/18 17:47 Pulse Ox 98 02/08/18 17:47 The patient states she feels much better. She is hungry. Her abdominal x-ray reveals resolution of the previously dilated loops of bowel (presumably colon) and only a small amount of residual gas presumably in the stomach or part of the colon. I discussed the findings with the patient and her daughter who was present. I reviewed with them the endoscopic findings, and reviewed also her clinical history over the past year. Her abdominal x-ray images since admission were also reviewed with them and explained to them demonstrating the dilated bowel when she presented and now the collapsed appearance of the current abdominal x-ray. I explained that her problem appears to be a dysfunctional colon causing the distention, and her large hiatal hernia and esophageal and gastric dysmotility causing the nausea and vomiting. She may be a candidate for a colostomy which would be easier to manage than fecal incontinence and overflow diarrhea with distention. She also might be a candidate for a buried infusion port to allow IV access for fluids, medications, or blood draws. This might best be managed at the [facility] where she has had the majority of her care and were cardiology could be available as well. I also contacted Dr. Kellogg who is on-call and explained the current situation to him. The patient's nasogastric tube was discontinued and a clear liquid trial will be begun. I ordered Zofran ODT if she is nauseated. I will discuss the case with Dr. Potts in the morning. Reviewed and electronically signed
[2018-02-09] MEDS: LEVOTHYROXINE SODIUM 100 MCG TABLET PO SCH (07:08)
--- NOTE | 2018-02-09 08:35 | PN ---
Progess Note - Interim Date: 02/09/18 Time: 08:33 Narrative: 02/09/18 08:33 Patient had endoscopic decompression of her colon with significant improvement of gas bowel pattern. Will zan to surgery if patient can be discharge and schedule her an outpatient follow up or transfer her with [facility].
[2018-02-09] MEDS: PROPYLENE GLYC TP SCH (08:57)
[2018-02-09] MEDS: HYDROXYCHLOROQUINE SULFATE 200 MG TABLET PO SCH (08:57)
[2018-02-09] MEDS: ASPIRIN 81 MG TABLET.DR PO SCH (08:57)
[2018-02-09] MEDS: BETAMETHASONE TP SCH (08:57)
[2018-02-09] MEDS: Pilocarpine Hcl 5 MG PO SCH ×3 (08:57→16:43)
[2018-02-09] MEDS: amLODIPine BESYLATE 5 MG TABLET PO SCH (08:57)
[2018-02-09] MEDS: BISACODYL 5 MG TABLET.DR PO SCH (08:57)
[2018-02-09] MEDS: ENOXAPARIN SODIUM 40 MG/0.4 ML SYRG SC SCH (08:59)
[2018-02-09] MEDS: POTASSIUM CHLORIDE 20 MEQ in DEXTROSE 5%-NORMAL SALINE 990 ML IV SCH ×2 (12:32→12:33)
--- NOTE | 2018-02-09 16:43 | DS ---
(1) Scleroderma involving bowel Problem: Chronic (2) Hypothyroidism Problem: Chronic Qualifiers: Hypothyroidism type: acquired Qualified Code(s): E03.9 - Hypothyroidism, unspecified (3) Hypokalemia Problem: Acute (4) GERD (gastroesophageal reflux disease) Problem: Chronic Qualifiers: Esophagitis presence: without esophagitis Qualified Code(s): K21.9 - Gastro -esophageal reflux disease without esophagitis Description of Stay: Verónica Yousif, is a 72-year-old white female, with previous medical history of scleroderma, and bowel obstructions hyperlipidemia, hypothyroidism, Ayon' s esophagus, who was admitted on 02/04/2018 for chest pain. A few hours prior to admission while watching television the patient said in the head chest pain associated with lightheadedness. This pressure-like radiating to her stomach area. She felt her heart beating hard but not fast. She has been nauseous and had been having constipation for the last 2-3 days and so she started taking MiraLAX. She said she had a very small bowel movement 1 day [employer]. In the emergency room her EKG showed atrial fibrillation intermittently with a heart rate in the low 100s. Her troponin was within normal limits. Her x-ray showed small bowel obstruction with hiatal hernia. She was placed on an NGT and connected to low intermittent suction and was admitted for further evaluation and treatment. She was ruled out for AMI and her CP likely was gastric related what with her moderate to large hiatal hernia. She was continue on IVF and kept NPO . Her electrolytes were replenished. 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 She underwent endoscopic decompression and findings did not show bowel obstruction but showed large hiatal hernia and dysfunctional esophageal and gastric motilitiy disorder. Surgery feels she will need gastroenreology evaluation and likely will benefit from colostomy and port placement in the near future . She tolerated regular diet and will be discharged today but will schedule a gastroenterology appointment in [facility]. Procedures Performed: see notes below List Procedures: sigmoidoscopy and endoscopic decompression Results and Findings: Lab Pending Results 02/04/18 22:30: WBC 7.3, RBC 3.85 L, Hgb 11.7 L, Hct 35.9 L, MCV 93.2, MCH 30.4 , MCHC 32.6, RDW 14.6 H, Plt Count 300, MPV 8.6, Immature Gran % (Auto) 0.30, Immature Gran # (Auto) 0.02, Neutrophils % 74.6, Lymphocytes % 17.8 L, Monocytes % 6.9, Eosinophils % 0.1, Basophils % 0.3, Nucleated RBC % 0.0, Neutrophils # 5.4, Lymphocytes # 1.29 L, Monocytes # 0.5, Eosinophils # 0.0, Absolute Basophils 0.0 02/04/18 22:30: PT 12.0 H, INR (Anticoag Therapy) 1.20 H, PTT (Brian) 27.3 02/04/18 22:30: Sodium 138, Plasma Sodium 137, Potassium 3.2 L, Chloride 105, Carbon Dioxide 19.9 L, Anion Gap 16.3 H, BUN 13 D, Creatinine 0.65, Est GFR ( Non-Af Amer) 95 D, BUN/Creatinine Ratio 20.0, Random Glucose 66 L, Calcium 8.3 , Calcium Adj for Albumin 8.6, Total Bilirubin 0.6, AST 32, ALT 39, Alkaline Phosphatase 97, Troponin I Less than 0.017, Total Protein 6.4, Albumin 3.2 L 02/04/18 22:30: Lactic Acid, Venous 1.8 02/05/18 00:55: TSH 5.601 H 02/06/18 10:22: WBC 7.9, RBC 4.26, Hgb 13.1, Hct 40.0, MCV 93.9, MCH 30.8, MCHC 32.8, RDW 15.2 H, Plt Count 353, MPV 8.6, Immature Gran % (Auto) 0.40, Immature Gran # (Auto) 0.03, Neutrophils % 86.6 H, Lymphocytes % 10.4 L, Monocytes % 2.5 , Eosinophils % 0.0, Basophils % 0.1, Nucleated RBC % 0.0, Neutrophils # 6.9 H, Lymphocytes # 0.82 L, Monocytes # 0.2, Eosinophils # 0.0, Absolute Basophils 0.0 02/06/18 10:22: Sodium 140, Plasma Sodium 139, Potassium 4.4 D, Chloride 110 H , Carbon Dioxide 12.9 L, Anion Gap 21.5 H, BUN 12, Creatinine 0.55, Est GFR (Non -Af Amer) 115 D, BUN/Creatinine Ratio 21.8 H, Random Glucose 32 L* D, Calcium 8.4, Phosphorus 3.0, Magnesium 1.1 L 02/07/18 06:00: Sodium 138, Plasma Sodium 138, Potassium 3.1 L D, Chloride 110 H , Carbon Dioxide 18.2 L, Anion Gap 12.9, BUN 8, Creatinine 0.63, Est GFR (Non- Af Amer) 98, BUN/Creatinine Ratio 12.7, Random Glucose 108 D, Calcium 7.3 L 02/07/18 06:00: WBC 4.9 D, RBC 3.56 L, Hgb 10.9 L, Hct 32.4 L, MCV 91.0, MCH 30.6, MCHC 33.6, RDW 15.0 H, Plt Count 273, MPV 8.9, Immature Gran % (Auto) 0.20 , Immature Gran # (Auto) 0.01, Neutrophils % 73.3, Lymphocytes % 18.8 L, Monocytes % 7.1, Eosinophils % 0.4, Basophils % 0.2, Nucleated RBC % 0.0, Neutrophils # 3.6, Lymphocytes # 0.93 L, Monocytes # 0.4, Eosinophils # 0.0, Absolute Basophils 0.0 02/07/18 06:00: Albumin 2.2 L Discharge Location: Home Disposition: Home self-care Condition: Stable Discharge Activity: Activity as tolerated Discharge Diet: General/regular food Referrals: Franca Massey MD [Primary Care Provider] - Additional Patient Instructions (free text): -Please make TCM appointment unless custodial discharge. Thank you! Shagufta @ [phone]. Fax records to Dr. Medrano in [place] [phone]. Fax records to Dr. Brian Huffman (attn: Dr. Brian Huffman and Marybeth) at [phone]. They will review records and call patient with an earlier appointment. Patient currently has a follow up scheduled in June. Follow up with PCP in 2 weeks. Prescriptions (Any new or edited meds): Levothyroxine Sodium [Synthroid] 100 mcg PO DAILY@0700 #30 tab Complete Home Medications List: Complete Home Medication List: Aspirin [Aspirin EC] 81 mg PO DAILY 04/16/16 Ferrous Sulfate [Iron] 325 mg PO DAILY 04/16/16 Hydroxychloroquine Sulfate [Plaquenil] 200 mg PO DAILY 04/16/16 Omeprazole 40 mg PO BID 04/16/16 Simvastatin [Zocor] 10 mg PO DAILY 04/16/16 Polyethylene Glycol 3350 [Miralax] 17 gm PO DAILY PRN 08/29/16 amlodipine 5 mg tablet 5 mg PO DAILY 12/09/17 potassium chloride ER 20 mEq tablet,extended release(part/cryst) 40 meq PO DAILY #180 tab 12/16/17 Lactobacillus Combo No.10 [Probiotic] 1 each PO DAILY 02/04/18 Nitroglycerin [Nitro-Bid 2% Ointment] 1 inch TD BID PRN 02/04/18 Oxybutynin Chloride [Ditropan] 10 mg PO DAILY 02/04/18 Pilocarpine HCl 5 mg PO TID 02/04/18 Betamethasone/Propylene Glyc [Diprolene 0.05% Ointment] 15 gm TP BID 02/05/18 Rifaximin [Xifaxan] 550 mg PO BID 02/05/18 Levothyroxine Sodium [Synthroid] 100 mcg PO DAILY@0700 #30 tab 02/09/18
[2018-02-09 17:58] VITALS: BP 116/65
== END 2018-02-09 18:02 | disposition home or self-care (01) | DRG 982 ==
LOC: MS 21:53 → ER 21:53 → OBSVTOIN 23:55 → MS 02-05 01:07
PROVIDERS: ADMIT Internal Medicine; ATTEND Internal Medicine
DX: E03.9 Hypothyroidism, unspecified
CPT/HCPCS: 36415; 71010; 71020; 71045; 71046; 74019; 74020; 74177; 80048; 80053; 82040; 83605; 83735; 84100; 84443; 84484; 85025; 85610; 85730; 93005; 99284; J2405

== ENCOUNTER 2018-02-28 19:15 | Observation (INO) | payer BC, MEDICARE ==
[2018-02-28] MEDS ORDERED: DILTIAZEM HCL 5 MG/ML VIAL IV ONE ×2 (20:09→20:12)
[2018-02-28] MEDS ORDERED: NITROGLYCERIN 0.4 MG/TAB BTL SL ONE ×2 (20:10→20:12)
[2018-02-28] MEDS ORDERED: ASPIRIN 81 MG TAB.CHEW ONE (20:10)
[2018-02-28] MEDS ORDERED: ASPIRIN 81 MG TAB.CHEW PO ONE (20:11)
--- NOTE | 2018-02-28 20:15 | ERNOTE ---
Chest Pain/Cardiac HPI Date of Service: 02/28/18 Chief Complaint: Palpitations Time Seen by Provider: 02/28/18 20:10 Source: patient Immunizations: IMMUNIZATION HX Immunizations Up to Date Yes History of Influenza Vaccine Yes Hx Pneumococcal Vaccination Yes Allergies/Adverse Reactions: Allergies minocycline Adverse Reaction (Severe, Verified 02/28/18 21:15) Black spots inside mouth Home Medications: HOME MEDICATIONS Aspirin [Aspirin EC] 81 mg PO DAILY 04/16/16 [Last Taken 02/04/18 20:00] Ferrous Sulfate [Iron] 325 mg PO DAILY 04/16/16 [Last Taken 02/04/18 20:00] Hydroxychloroquine Sulfate [Plaquenil] 200 mg PO DAILY 04/16/16 [Last Taken 02/04/18 20:00] Omeprazole 40 mg PO BID 04/16/16 [Last Taken 02/04/18 20:00] Simvastatin [Zocor] 10 mg PO DAILY 04/16/16 [Last Taken 02/04/18 20:00] Polyethylene Glycol 3350 [Miralax] 17 gm PO DAILY PRN 08/29/16 [Last Taken 02/04/18 20:00] amlodipine 5 mg tablet 5 mg PO DAILY 12/09/17 [Last Taken 02/04/18 20:00] potassium chloride ER 20 mEq tablet,extended release(part/cryst) 40 meq PO DAILY #180 tab 12/16/17 [Last Taken 02/04/18 20:00] Lactobacillus Combo No.10 [Probiotic] 1 ea PO DAILY 02/04/18 [Last Taken 02/04/18 20:00] Nitroglycerin [Nitro-Bid 2% Ointment] 1 inch TD BID PRN 02/04/18 [Last Taken Unknown] Oxybutynin Chloride [Ditropan] 10 mg PO DAILY 02/04/18 [Last Taken 02/04/18 20:00] Pilocarpine HCl 5 mg PO TID 02/04/18 [Last Taken 02/04/18 20:00] Betamethasone/Propylene Glyc [Diprolene 0.05% Ointment] 15 gm TP BID 02/05/18 [Last Taken Unknown] Rifaximin [Xifaxan] 550 mg PO BID 02/05/18 [Last Taken Unknown] Levothyroxine Sodium [Synthroid] 88 mcg PO DAILY 02/28/18 [Last Taken Unknown] Narrative: Patient is 32-year-old female with complex medical history presenting to the emergency room complaining of palpitations and chest pain that has been ongoing for the past 8 hours. She is here with her daughter who provided some of the history. Apparently patient started having chest discomfort that started around 12:00pm with no palliative or provocation factors. Chest pain lasted for a little while, she couldn't tell me how long the chest pain lasted but went away and upon arrival here she started having a discomfort in the chest area. Also around the same time at 12 PM she started having palpitations. She suspected she had exacerbation of A. fib Associated with chest pain is palpitations as weakness, lightheadedness, dizziness. He also reports occasional cough and some leg swelling. She reports having all been diagnosed with atrial fibrillation 5 months ago. They considered starting her on intact coagulation at that time but wanted to wait for further workup. She is not on any anticoagulation at this time. She is on amlodipine but no other beta debra. Nitro Today/Relief: no nitro taken today Aspirin Treatment Today: no aspirin today Associated Symptoms: Present: dizziness, cough, diaphoresis, palpitations, weakness. Absent: headache, syncope, shortness of breath, fever/chills, heartburn, nausea, vomiting, abdominal pain, back pain, swelling/lump in chest Review of Systems - Review of Systems Constitutional: Present: no symptoms reported, weakness, fatigue EYE: Present: no symptoms reported ENT: Present: no symptoms reported Respiratory: Present: See HPI, cough Cardiology: Present: chest pain, palpitations. Absent: syncope, edema, claudication Gastrointestinal/Abdominal: Present: no symptoms reported Genitourinary: Present: no symptoms reported Musculoskeletal: Present: no symptoms reported Skin: Present: no symptoms reported Neurological: Present: no symptoms reported Endocrine: Present: no symptoms reported Hematologic/Lymphatic: Present: no symptoms reported Psych: Present: no symptoms reported Medical History (Last Reviewed 02/28/18 @ 21:14 by Tianna Bauer RN) Atrial fibrillation (Resolved) Chronic diarrhea Limited systemic sclerosis Amyloidosis Onset Date: 09/15/16 Anemia Onset Date: Unknown Barretts esophagus Onset Date: Unknown CAD (coronary artery disease) Onset Date: ~2009 Hyperlipidemia Onset Date: Unknown Hypothyroidism (acquired) Onset Date: Unknown Raynauds syndrome Onset Date: Unknown CREST (calcinosis, Raynaud's phenomenon, esophageal dysfunction, sclerodactyly, telangiectasia) Onset Date: 04/23/16 History of carcinoma in situ of breast Onset Date: ~2002 History of intestinal obstruction Onset Date: 08/10/17 Surgical History: Surgical History (Last Reviewed 02/28/18 @ 21:14 by Tianna Bauer, RN) History of esophagogastroduodenoscopy Onset Date: ~2017 History of lumpectomy of right breast Onset Date: ~2003 History of rectal surgery Onset Date: ~2003 History of tubal ligation Onset Date: ~1981 Family History: Family History (Last Reviewed 02/28/18 @ 21:14 by Tianna Bauer, RN) Father Diabetes Heart disease Cancer Mother Heart disease Social History: Preferred Language Estonian Do you have any latter day or No cultural preference? Smoking Status Former smoker Have you smoked in the past 12 No months Abuse History No History of abuse Psych History Hx of Depression Alcohol Use none Physical Exam - Physical Exam General Appearance: Present: wd/wn, alert, no apparent distress Head Exam: Present: normal inspection, no evidence of injury Eye Exam: Normal inspection: bilateral, PERRL: bilateral, EOMI: bilateral Neck: Present: normal inspection, nontender, supple, full range of motion Respiratory: Present: no respiratory distress, normal breath sounds, no accessory muscle use Cardiovascular/Chest: Present: tachycardia, irregularly irregular Gastrointestinal/Abdominal: Present: normal bowel sounds, nontender, nond istended, soft Back Exam: Present: normal inspection, normal range of motion Extremity Exam: Present: normal inspection, normal except - Neurological Exam: Present: alert, oriented, normal mood/affect Skin Exam: Present: normal color Lymphatic Exam: Present: no adenopathy ED Progress - Results and Orders Patient's Lab Results:: I have reviewed the patient's lab results. - Vital Signs Patient's Vital Signs:: I have reviewed the patient's vital signs. Vital Signs: Vital Signs 02/28/18 19:31 Temperature 36.6 C Pulse Rate 157 H Respiratory Rate 22 H Blood Pressure 120/69 O2 Sat by Pulse Oximetry 94 - EKG EKG: atrial fibrillation EKG read: Interp. by me EKG Comments: Atrial fibrillation with rapid ventricular response - X-Ray X-Ray #1 X-Ray: chest Interpretation: Interp. by me X-ray Comments: She appears to have no cardiopulmonary process. No consolidative infiltrates noted. - Progress/Reassessment Chief Complaint: Palpitations Progress:: Unchanged Progress Note-Subjective: 02/28/18 21:55 Patient presents to the emergency room with chest pain on palpitation On arrival, heart rate ranges from 120-160 range Examination was remarkable for +1 pedal edema Patient was given a dose of 20 Mg IV 1. Blood work that was done showed a BNP of 2000+ Neck markers at this time was unremarkable. His chest this patient with Dr. Manzo who recommended giving a patient as of this digoxin 0.5 mg IV 1 given her low blood pressure And digoxin 0.125 mg every 6 hours 4 doses Proceed and sent patient to the cardiac care unit for observation versus acute stay - Transfer of Care Expected Disposition: Admit Departure Clinical Impression: Atrial fibrillation with RVR Congestive heart disease Qualifiers: Heart failure type: unspecified Heart failure chronicity: acute Qualified Code(s): I50.9 - Heart failure, unspecified - Departure Disposition: Still a patient Condition: Fair
[2018-02-28] MEDS ORDERED: NORMAL SALINE 1,000 ML IV ONE (20:20)
[2018-02-28 20:21] LABS: Hematocrit 32.9 % (37.0-47.0); Hemoglobin 10.7 gm/dL (12.5-16.0); Mean Cell Volume 92.2 fl (78-100); Mean Corpuscular Hgb Conc 32.5 g/dl (32-36); Mean Platelet Volume 8.5 fl (8-12.5); Neutrophil # 6.4 K/mm3 (1.3-6.0); Neutrophil % 82.5 % (42-75.0); Platelet Count 413 K/mm3 (150-450); Red Blood Count 3.57 M/mm3 (4.2-5.4); Red Cell Distribution Width 14.3 % (11.5-14.0); White Blood Count 7.7 K/mm3 (4.0-10.5)
[2018-02-28 20:34] LABS: Troponin I 0.021 ng/mL (0.00-0.10)
[2018-02-28 20:47] LABS: Albumin * 2.4 gm/dl (3.4-5.0); Anion Gap 14.2 mmol/L (6.8-13.8); BUN/Creatinine Ratio 31.3 (9.0-21.6); Bilirubin, Total 0.4 mg/dL (0.0-1.1); Ca. Corrected For Albumin 9.1 mg/dL (8.4-10.2); Calcium * 8.1 mg/dL (7.9-10.9); Carbon Dioxide 22.3 mmol/L (24-32.6); Magnesium 1.1 mg/dL (1.2-2.8); Potassium 3.5 mmol/L (3.4-4.6); Total Protein 6.1 gm/dL (6.2-8.2)
[2018-02-28] MEDS ORDERED: ACETAMINOPHEN 500 MG TABLET PO ONE (20:47)
[2018-02-28 20:48] LABS: CKMB 0.7 ng/mL (0.0-9.0)
[2018-02-28] MEDS ORDERED: FUROSEMIDE 10 MG/ML VIAL IV ONE (21:15)
[2018-02-28] MEDS ORDERED: ENOXAPARIN SODIUM 30 MG/0.3 ML SYRG SC ONE (21:21)
[2018-02-28] MEDS ORDERED: DIGOXIN 0.25 MG/ML AMPUL IV ONE (21:21)
[2018-02-28] MEDS ORDERED: ENOXAPARIN SODIUM 80 MG/0.8 ML DISP.SYRIN SC ONE (21:26)
[2018-02-28] MEDS ORDERED: FUROSEMIDE 10 MG/ML VIAL ONE (21:26)
[2018-02-28] MEDS ORDERED: DIGOXIN 0.25 MG/ML AMPUL ONE (21:26)
[2018-02-28] MEDS: DIGOXIN 0.25 MG/ML AMPUL IV SCH (22:12)
[2018-02-28] MEDS ORDERED: ACETAMINOPHEN 325 MG TABLET PO PRN (23:32)
[2018-03-01] MEDS: DIGOXIN 0.25 MG/ML AMPUL IV SCH (04:15)
[2018-03-01] MEDS ORDERED: NITROGLYCERIN 1 INCH PACKET TD PRN (06:12)
[2018-03-01] MEDS ORDERED: POLYETHYLENE GLYCOL 3350 119 GM BTL PO PRN (06:12)
[2018-03-01] MEDS ORDERED: METOPROLOL TARTRATE 25 MG TABLET PO SCH ×2 (06:30→09:00)
[2018-03-01 06:59] LABS: Hematocrit 29.9 % (37.0-47.0); Hemoglobin 9.7 gm/dL (12.5-16.0); Mean Cell Volume 92.6 fl (78-100); Mean Corpuscular Hgb Conc 32.4 g/dl (32-36); Mean Platelet Volume 8.4 fl (8-12.5); Neutrophil # 4.6 K/mm3 (1.3-6.0); Neutrophil % 77.8 % (42-75.0); Platelet Count 377 K/mm3 (150-450); Red Blood Count 3.23 M/mm3 (4.2-5.4); Red Cell Distribution Width 14.3 % (11.5-14.0); White Blood Count 5.9 K/mm3 (4.0-10.5)
[2018-03-01] MEDS ORDERED: LEVOTHYROXINE SODIUM 100 MCG TABLET PO SCH (07:00)
--- NOTE | 2018-03-01 07:11 | HP ---
Chief Complaint - Chief Complaint Date of Service: 03/01/18 Time of Service: 07:11 Chief Complaint: chest pain and palpitations History of Present Illness: Verónica Yousif, is a 72-year-old white female, patient of Dr. Massey, with past medical history significant for Ayon's esophagus, carotid artery stenosis, GERD, hyperlipidemia, hypothyroidism, scleroderma, paroxysmal atrial fibrillation, who was admitted on 02/28/2018 because of chest pain and palpitation. Around noontime of the day of admission, the patient started chest discomfort described as "discomfort', 6-11/30.left chest area, nonradiating associated with nausea. She also noted palpitations with this. She was then brought to the emergency room by her daughter were her EKG showed that she had atrial fibrillation with rapid ventricular response of 164, with nonspecific ST and T wave abnormality. Her troponin was 0.021. She was given an IV bolus of Cardizem 20 mg. The heart rate went down into the low 100s. She was going to be admitted to the SCU for Cardizem drip but her blood pressure was 98/60. I told the ED doctor to give her 0.5 mg of IV digoxin instead of the drip. Before she was transferred to the unit she was already in normal sinus rhythm spo ntaneously. . Medical History (Last Reviewed 03/01/18 @ 00:43 by Amy Walker RN) Atrial fibrillation (Resolved) Chronic diarrhea Limited systemic sclerosis Amyloidosis Onset Date: 09/15/16 Anemia Onset Date: Unknown Barretts esophagus Onset Date: Unknown CAD (coronary artery disease) Onset Date: ~2009 Hyperlipidemia Onset Date: Unknown Hypothyroidism (acquired) Onset Date: Unknown Raynauds syndrome Onset Date: Unknown CREST (calcinosis, Raynaud's phenomenon, esophageal dysfunction, sclerodactyly, telangiectasia) Onset Date: 04/23/16 History of carcinoma in situ of breast Onset Date: ~2002 History of intestinal obstruction Onset Date: 08/10/17 Surgical History: Surgical History (Last Reviewed 03/01/18 @ 00:43 by Amy Walker RN) History of esophagogastroduodenoscopy Onset Date: ~2017 History of lumpectomy of right breast Onset Date: ~2003 History of rectal surgery Onset Date: ~2003 History of tubal ligation Onset Date: ~1981 Family History: Family History (Last Reviewed 03/01/18 @ 00:43 by Amy Walker RN) Father Diabetes Heart disease Cancer Mother Heart disease Social History: Patient Lives/Resources With Spouse Utilized Occupation retired Preferred Language Kazakh Do you have any scientologist or Yes: hristian cultural preference? Smoking Status Former smoker Have you smoked in the past 12 No months Do you dip or chew tobacco No Abuse History No History of abuse Psych History Hx of Depression Alcohol Use none Review Of Systems (GEN) - Review of Systems Generalized/Overall Review: Absent: Weakness, Chills, Fever Respiratory: Absent: Cough, Shortness of Breath, Wheezing Cardiac: Present: Chest Pain - resolved, Palpitations - resolved. Absent: Edema Abdominal: Present: Nausea - resolved, Vomiting - resolved Genitourinary: Absent: Urgency, Frequency Musculoskeletal: Present: Joint Pain Immunizations: IMMUNIZATION HX Immunizations Up to Date Yes History of Influenza Vaccine Yes Hx Pneumococcal Vaccination Yes Allergies/Adverse Reactions: Allergies Allergy/AdvReac Type Severity Reaction Status Date / Time minocycline AdvReac Severe Black Verified 02/28/18 21:15 spots inside mouth Home Medications: HOME MEDICATIONS Aspirin [Aspirin EC] 81 mg PO DAILY 04/16/16 [Last Taken 02/04/18 20:00] Ferrous Sulfate [Iron] 325 mg PO DAILY 04/16/16 [Last Taken 02/28/18 17:00] Hydroxychloroquine Sulfate [Plaquenil] 200 mg PO DAILY 04/16/16 [Last Taken 02/28/18 17:00] Omeprazole 40 mg PO BID 04/16/16 [Last Taken 02/28/18 17:00] Simvastatin [Zocor] 10 mg PO DAILY 04/16/16 [Last Taken 02/28/18 17:00] Polyethylene Glycol 3350 [Miralax] 17 gm PO DAILY PRN 08/29/16 [Last Taken 02/04/18 20:00] amlodipine 5 mg tablet 5 mg PO DAILY 12/09/17 [Last Taken 02/28/18 17:00] potassium chloride ER 20 mEq tablet,extended release(part/cryst) 40 meq PO DAILY #180 tab 12/16/17 [Last Taken 02/28/18 17:00] Lactobacillus Combo No.10 [Probiotic] 1 ea PO DAILY 02/04/18 [Last Taken 02/04/18 20:00] Nitroglycerin [Nitro-Bid 2% Ointment] 1 inch TD BID PRN 02/04/18 [Last Taken Unknown] Oxybutynin Chloride [Ditropan] 10 mg PO DAILY 02/04/18 [Last Taken 02/28/18 17:00] Pilocarpine HCl 5 mg PO TID 02/04/18 [Last Taken 02/28/18 17:00] Betamethasone/Propylene Glyc [Diprolene 0.05% Ointment] 15 gm TP BID 02/05/18 [Last Taken Unknown] Levothyroxine Sodium [Synthroid] 100 mcg PO DAILY 02/28/18 [Last Taken 02/28/18 17:00] Exam - Exam Vital Signs: Vital Signs - Last Taken Temp 37.0 C 03/01/18 03:00 Pulse 69 03/01/18 03:00 Resp 18 03/01/18 03:00 BP 104/48 03/01/18 03:00 Pulse Ox 100 03/01/18 03:00 Constitutional: Present: Alert, Oriented x3, Cooperative, Elderly, Thin and frail ENT Exam: Present: hearing grossly normal Eye Exam: bilateral eye: normal inspection, PERRL, EOMI Neck: Present: supple Respiratory: Present: decreased breath sounds, No rales, No wheezing Cardiovascular/Chest: Present: regular rate, rhythm, no JVD, no murmur Abdomen: Present: Normal bowel sounds, soft, nontender, nondistended Extremity: Present: no pedal edema, no calf tenderness Diagnostic Studies: Abnormal Lab Results 02/28/18 02/28/18 02/28/18 Range/Units 20:10 20:10 20:19 RBC 3.57 L (4.2-5.4) M/mm3 Hgb 10.7 L (12.5-16.0) gm/dL Hct 32.9 L (37.0-47.0) % RDW 14.3 H (11.5-14.0) % Immature Gran % (Auto) 1.00 H (0.001-0.429) % Immature Gran # (Auto) 0.08 H (0.000-0.0310) K/mm3 Neutrophils % 82.5 H (42-75.0) % Lymphocytes % 10.0 L (20-51) % Neutrophils # 6.4 H (1.3-6.0) K/mm3 Lymphocytes # 0.77 L (1.5-3.5) k/mm3 Carbon Dioxide 22.3 L (24-32.6) mmol/L Anion Gap 14.2 H (6.8-13.8) mmol/L BUN/Creatinine Ratio 31.3 H (9.0-21.6) Magnesium 1.1 L (1.2-2.8) mg/dL B-Natriuretic Peptide 2177 H (5-325) pg/mL Total Protein 6.1 L (6.2-8.2) gm/dL Albumin 2.4 L (3.4-5.0) gm/dl 03/01/18 Range/Units 06:54 RBC 3.23 L (4.2-5.4) M/mm3 Hgb 9.7 L (12.5-16.0) gm/dL Hct 29.9 L (37.0-47.0) % RDW 14.3 H (11.5-14.0) % Immature Gran % (Auto) 0.80 H (0.001-0.429) % Immature Gran # (Auto) 0.05 H (0.000-0.0310) K/mm3 Neutrophils % 77.8 H (42-75.0) % Lymphocytes % 14.7 L (20-51) % Neutrophils # (1.3-6.0) K/mm3 Lymphocytes # 0.87 L (1.5-3.5) k/mm3 Carbon Dioxide (24-32.6) mmol/L Anion Gap (6.8-13.8) mmol/L BUN/Creatinine Ratio (9.0-21.6) Magnesium (1.2-2.8) mg/dL B-Natriuretic Peptide (5-325) pg/mL Total Protein (6.2-8.2) gm/dL Albumin (3.4-5.0) gm/dl Laboratory Results WBC 5.9 K/mm3 (4.0-10.5) D 03/01/18 06:54 RBC 3.23 M/mm3 (4.2-5.4) L 03/01/18 06:54 Hgb 9.7 gm/dL (12.5-16.0) L 03/01/18 06:54 Hct 29.9 % (37.0-47.0) L 03/01/18 06:54 MCV 92.6 fl (78-100) 03/01/18 06:54 MCH 30.0 pg (27-31) 03/01/18 06:54 MCHC 32.4 g/dl (32-36) 03/01/18 06:54 RDW 14.3 % (11.5-14.0) H 03/01/18 06:54 Plt Count 377 K/mm3 (150-450) 03/01/18 06:54 MPV 8.4 fl (8-12.5) 03/01/18 06:54 Immature Gran % (Auto) 0.80 % (0.001-0.429) H 03/01/18 06:54 Immature Gran # (Auto) 0.05 K/mm3 (0.000-0.0310) H 03/01/18 06:54 Neutrophils % 77.8 % (42-75.0) H 03/01/18 06:54 Lymphocytes % 14.7 % (20-51) L 03/01/18 06:54 Monocytes % 5.4 % (0.0-9) 03/01/18 06:54 Eosinophils % 1.0 % (0.0-3.0) 03/01/18 06:54 Basophils % 0.3 % (0.0-1.0) 03/01/18 06:54 Nucleated RBC % 0.0 k/mm3 (0-1) 03/01/18 06:54 Neutrophils # 4.6 K/mm3 (1.3-6.0) 03/01/18 06:54 Lymphocytes # 0.87 k/mm3 (1.5-3.5) L 03/01/18 06:54 Monocytes # 0.3 k/mm3 (0.0-1.0) 03/01/18 06:54 Eosinophils # 0.1 k/mm3 (0.0-0.7) 03/01/18 06:54 Absolute Basophils 0.0 k/mm3 (0.0-0.1) 03/01/18 06:54 Sodium 136 mmol/L (132-142) 02/28/18 20:10 Plasma Sodium 136 mmol/L (130-142) 02/28/18 20:10 Potassium 3.5 mmol/L (3.4-4.6) 02/28/18 20:10 Chloride 103 mmol/L (97-106) 02/28/18 20:10 Carbon Dioxide 22.3 mmol/L (24-32.6) L 02/28/18 20:10 Anion Gap 14.2 mmol/L (6.8-13.8) H 02/28/18 20:10 BUN 20 mg/dL (3-23) D 02/28/18 20:10 Creatinine 0.64 mg/dL (0.4-1.4) 02/28/18 20:10 Est GFR (Non-Af Amer) 97 mL/min (60-130) 02/28/18 20:10 BUN/Creatinine Ratio 31.3 (9.0-21.6) H 02/28/18 20:10 Random Glucose 98 mg/dL (70-110) 02/28/18 20:10 Calcium 8.1 mg/dL (7.9-10.9) 02/28/18 20:10 Calcium Adj for Albumin 9.1 mg/dL (8.4-10.2) 02/28/18 20:10 Magnesium 1.1 mg/dL (1.2-2.8) L 02/28/18 20:10 Total Bilirubin 0.4 mg/dL (0.0-1.1) 02/28/18 20:10 AST 37 U/L (0-48) 02/28/18 20:10 ALT 44 U/L (19-67) 02/28/18 20:10 Alkaline Phosphatase 122 U/L (50-170) 02/28/18 20:10 Creatine Kinase 33 U/L (0-259) 02/28/18 20:19 CK-MB (CK-2) 0.7 ng/mL (0.0-9.0) 02/28/18 20:19 Troponin I 0.021 ng/mL (0.00-0.10) 02/28/18 20:10 B-Natriuretic Peptide 2177 pg/mL (5-325) H 02/28/18 20:19 Total Protein 6.1 gm/dL (6.2-8.2) L 02/28/18 20:10 Albumin 2.4 gm/dl (3.4-5.0) L 02/28/18 20:10 Assessment/Plan - Assessment/Plan (1) Chest pain Assessment: likely rate related. will repat 2nd EKG and troponin, if no significant change , AMI is ruled out and will possibly discharge her today. Problem: Acute Qualifiers: Chest pain type: unspecified Qualified Code(s): R07.9 - Chest pain, unspecified (2) Paroxysmal atrial fibrillation with rapid ventricular response Assessment: will start on low dose metoprolol tartrate and Eliquis 5 mg PO BID. Problem: Resolved (3) Hypothyroidism Problem: Chronic Qualifiers: Hypothyroidism type: acquired Qualified Code(s): E03.9 - Hypothyroidism, unspecified (4) GERD (gastroesophageal reflux disease) Problem: Chronic Qualifiers: Esophagitis presence: without esophagitis Qualified Code(s): K21.9 - Gastro-esophageal reflux disease without esophagitis (5) Scleroderma Problem: Acute (6) Elevated brain natriuretic peptide (BNP) level Assessment: likely due to AFIB with RVR. Problem: Acute
[2018-03-01 07:18] LABS: Anion Gap 8.9 mmol/L (6.8-13.8); BUN/Creatinine Ratio 29.7 (9.0-21.6); Calcium * 7.9 mg/dL (7.9-10.9); Carbon Dioxide 27.8 mmol/L (24-32.6); Estimated Creat Clear 61.9; Potassium 3.7 mmol/L (3.4-4.6); TSH * 1.038 uIU/mL (0.358-3.74); Troponin I 0.036 ng/mL (0.00-0.10)
[2018-03-01] MEDS: Pilocarpine Hcl 5 MG PO SCH ×2 (08:55→14:13)
[2018-03-01] MEDS ORDERED: HYDROXYCHLOROQUINE SULFATE 200 MG TABLET PO SCH (09:00)
[2018-03-01] MEDS ORDERED: FERROUS SULFATE 325 MG TABLET PO SCH (09:00)
[2018-03-01] MEDS ORDERED: amLODIPine BESYLATE 5 MG TABLET PO SCH (09:00)
[2018-03-01] MEDS ORDERED: PANTOPRAZOLE SODIUM 40 MG TABLET.EC PO SCH (09:00)
[2018-03-01] MEDS ORDERED: LACTOBACILLUS ACIDOPHILUS 100 CAP BTL PO SCH (09:00)
[2018-03-01] MEDS ORDERED: OXYBUTYNIN CHLORIDE 5 MG TABLET PO SCH (09:00)
[2018-03-01] MEDS ORDERED: DIPROLENE 0.05% TP SCH (09:00)
--- NOTE | 2018-03-01 12:11 | DS ---
(1) Atrial fibrillation with RVR Diagnosis(s): paroxysmal AFib Problem: Resolved (2) Chest pain Diagnosis(s): Acute TX ruled put Problem: Acute Qualifiers: Chest pain type: unspecified Qualified Code(s): R07.9 - Chest pain, unspecified (3) Hypothyroidism Problem: Chronic Qualifiers: Hypothyroidism type: acquired Qualified Code(s): E03.9 - Hypothyroidism, unspecified (4) GERD (gastroesophageal reflux disease) Problem: Chronic Qualifiers: Esophagitis presence: without esophagitis Qualified Code(s): K21.9 - Gastro-esophageal reflux disease without esophagitis (5) Scleroderma Problem: Chronic (6) Elevated brain natriuretic peptide (BNP) level Diagnosis(s): likely due to AFib with RVR Problem: Acute Description of Stay: Verónica Yousif, is a 72-year-old white female, patient of Dr. Massey, with past medical history significant for Ayon's esophagus, carotid artery stenosis, GERD, hyperlipidemia, hypothyroidism, scleroderma, paroxysmal atrial fibrillation, who was admitted on 02/28/2018 because of chest pain and palpitation. Around noontime of the day of admission, the patient started having chest pain described as "discomfort", 6-7/10, left chest area, nonradiating associated with nausea. She also noted palpitations with this. She was then brought to the emergency room by her daughter were her EKG showed that she had atrial fibrillation with rapid ventricular response of 164, with nonspecific ST and T wave abnormality. Her troponin was 0.021. She was given an IV bolus of Cardizem 20 mg. The heart rate went down into the low 100s. She was going to be admitted to the SCU for Cardizem drip but her blood pressure was 98/60. She 0.5 mg of IV digoxin instead of the drip. Before she was transferred to the unit she was already in normal sinus rhythm spontaneously. Her repeat EKG and troponin ruled put AMI. She had an Echo on 12/2017 which showed Normal EF, normal Wall motion, mild MR/TR, moderated LAE, RSVP 30-40. Her TSH was normal. She agrees to anticoagulation. She is CP free. We will discharge her today and schedule a nuclear pharmacologic stress test as outpatient. Procedures Performed: none Results and Findings: Lab Pending Results 02/28/18 20:10: WBC 7.7, RBC 3.57 L, Hgb 10.7 L, Hct 32.9 L, MCV 92.2, MCH 30.0, MCHC 32.5, RDW 14.3 H, Plt Count 413, MPV 8.5, Immature Gran % (Auto) 1.00 H, Immature Gran # (Auto) 0.08 H, Neutrophils % 82.5 H, Lymphocytes % 10.0 L, Monocytes % 6.0, Eosinophils % 0.1, Basophils % 0.4, Nucleated RBC % 0.0, Neutrophils # 6.4 H, Lymphocytes # 0.77 L, Monocytes # 0.5, Eosinophils # 0.0, Absolute Basophils 0.0 02/28/18 20:10: Sodium 136, Plasma Sodium 136, Potassium 3.5, Chloride 103, Carbon Dioxide 22.3 L, Anion Gap 14.2 H, BUN 20 D, Creatinine 0.64, Est GFR (Non-Af Amer) 97, BUN/Creatinine Ratio 31.3 H, Random Glucose 98, Calcium 8.1, Calcium Adj for Albumin 9.1, Magnesium 1.1 L, Total Bilirubin 0.4, AST 37, ALT 44, Alkaline Phosphatase 122, Troponin I 0.021, Total Protein 6.1 L, Albumin 2.4 L 02/28/18 20:19: Creatine Kinase 33, CK-MB (CK-2) 0.7, B-Natriuretic Peptide 2177 H 03/01/18 06:54: WBC 5.9 D, RBC 3.23 L, Hgb 9.7 L, Hct 29.9 L, MCV 92.6, MCH 30.0, MCHC 32.4, RDW 14.3 H, Plt Count 377, MPV 8.4, Immature Gran % (Auto) 0.80 H, Immature Gran # (Auto) 0.05 H, Neutrophils % 77.8 H, Lymphocytes % 14.7 L, Monocytes % 5.4, Eosinophils % 1.0, Basophils % 0.3, Nucleated RBC % 0.0, Neutrophils # 4.6, Lymphocytes # 0.87 L, Monocytes # 0.3, Eosinophils # 0.1, Absolute Basophils 0.0 03/01/18 06:54: Sodium 136, Plasma Sodium 136, Potassium 3.7, Chloride 103, Carbon Dioxide 27.8, Anion Gap 8.9, BUN 19, Creatinine 0.64, Est GFR (Non-Af Amer) 97, BUN/Creatinine Ratio 29.7 H, Random Glucose 85, Calcium 7.9, Troponin I 0.036, B-Natriuretic Peptide 2215 H, TSH 1.038 Discharge Location: Home Disposition: Home self-care Condition: Stable Discharge Activity: Activity as tolerated Discharge Diet: Low salt Referrals: Franca Massey MD [Primary Care Provider] - Problem Oriented Discharge Instructions to Patient/Family: Atrial Fibrillation, [id number] Additional Patient Instructions (free text): -Please call Shagufta @ ext:[phone] Thank you! Follow up with PCP in 1 week. she has an appointment with Dr. Medrano next month. Schedule a nuclear pharmacologic stress test on outpatient basis. NUC Pharmacological Stress Test 03/08 at 7:00am. please check in at 6:30am. nothing to eat or drink after midnight prior to test or caffeine 8 hours before test. Do not take medication that morning but bring meds. with you. Follow up with Dr. Massey 03/09 at 9:30am. Prescriptions (Any new or edited meds): Acetaminophen [Tylenol] 650 mg PO Q6H PRN #30 tablet PRN Reason: Mild Pain (Pain Scale 1-3) Apixaban [Eliquis] 5 mg PO BID #60 tablet Complete Home Medications List: Complete Home Medication List: Ferrous Sulfate [Iron] 325 mg PO DAILY 04/16/16 Hydroxychloroquine Sulfate [Plaquenil] 200 mg PO DAILY 04/16/16 Omeprazole 40 mg PO BID 04/16/16 Simvastatin [Zocor] 10 mg PO DAILY 04/16/16 Polyethylene Glycol 3350 [Miralax] 17 gm PO DAILY PRN 08/29/16 amlodipine 5 mg tablet 5 mg PO DAILY 12/09/17 potassium chloride ER 20 mEq tablet,extended release(part/cryst) 40 meq PO DAILY #180 tab 12/16/17 Lactobacillus Combo No.10 [Probiotic] 1 ea PO DAILY 02/04/18 Nitroglycerin [Nitro-Bid 2% Ointment] 1 inch TD BID PRN 02/04/18 Oxybutynin Chloride [Ditropan] 10 mg PO DAILY 02/04/18 Pilocarpine HCl 5 mg PO TID 02/04/18 Betamethasone/Propylene Glyc [Diprolene 0.05% Ointment] 15 gm TP BID 02/05/18 Levothyroxine Sodium [Synthroid] 100 mcg PO DAILY 02/28/18 Acetaminophen [Tylenol] 650 mg PO Q6H PRN #30 tablet 03/01/18 Apixaban [Eliquis] 5 mg PO BID #60 tablet 03/01/18 Metoprolol Tartrate [Lopressor] 12.5 mg PO Q12H tablet 03/01/18 Amb Orders for Discharge: NUC Pharmacological Stress Time Frame: 03/08/18, Location: Radiology
[2018-03-01] MEDS ORDERED: CALCIUM CARBONATE 500 MG TAB.CHEW PO PRN (15:18)
[2018-03-01 18:23] VITALS: BP 103/60
[2018-03-01] MEDS ORDERED: SIMVASTATIN 10 MG TABLET PO SCH (21:00)
== END 2018-03-01 18:00 | disposition home or self-care (01) ==
LOC: ER 19:15 → SCU 21:28 → OBSVTOIN 21:28 → INTOOBSV 21:28 → SCU 22:30 → MS 03-01 00:07
PROVIDERS: ADMIT Internal Medicine; ATTEND Internal Medicine
DX: Z23 Encounter for immunization; R78.89 Finding of other specified substances, not normally found in blood; I48.0 Paroxysmal atrial fibrillation; M34.9 Systemic sclerosis, unspecified; R07.9 Chest pain, unspecified; E03.9 Hypothyroidism, unspecified; K21.9 Gastro-esophageal reflux disease without esophagitis
CPT/HCPCS: 36415; 71010; 71045; 80048; 80053; 82550; 82553; 83519; 83735; 83880; 84443; 84484; 85025; 87081; 90686; 93005; 96374; 96375; 96376; 99284; G0008; G0378

== ENCOUNTER 2018-03-05 11:39 | Inpatient (IN) | payer BC, MEDICARE ==
--- NOTE | 2018-03-05 12:13 | ERNOTE ---
Abdominal HPI - General Chief Complaint: General Assessment Time Seen by Provider: 03/05/18 11:53 Source: patient - Immun/Allergies/Home Medications Immunizatons: IMMUNIZATION HX Immunizations Up to Date Yes History of Influenza Vaccine Yes Hx Pneumococcal Vaccination Yes Allergies/Adverse Reactions: Allergies minocycline Adverse Reaction (Severe, Verified 03/05/18 15:13) Black spots inside mouth Home Medications: HOME MEDICATIONS Ferrous Sulfate [Iron] 650 mg PO DAILY 04/16/16 [Last Taken 02/28/18 17:00] Hydroxychloroquine Sulfate [Plaquenil] 300 mg PO DAILY 04/16/16 [Last Taken 02/28/18 17:00] Omeprazole 40 mg PO BID 04/16/16 [Last Taken 02/28/18 17:00] Simvastatin [Zocor] 10 mg PO QPM 04/16/16 [Last Taken 02/28/18 17:00] Polyethylene Glycol 3350 [Miralax] 17 gm PO DAILY PRN 08/29/16 [Last Taken 02/04/18 20:00] amlodipine 5 mg tablet 5 mg PO DAILY 12/09/17 [Last Taken 02/28/18 17:00] potassium chloride ER 20 mEq tablet,extended release(part/cryst) 40 meq PO DAILY #180 tab 12/16/17 [Last Taken 02/28/18 17:00] Lactobacillus Combo No.10 [Probiotic] 1 ea PO DAILY 02/04/18 [Last Taken 02/04/18 20:00] Nitroglycerin [Nitro-Bid 2% Ointment] 1 inch TD BID PRN 02/04/18 [Last Taken Unknown] Oxybutynin Chloride [Ditropan] 10 mg PO DAILY 02/04/18 [Last Taken 02/28/18 17:00] Pilocarpine HCl 5 mg PO TID 02/04/18 [Last Taken 02/28/18 17:00] Betamethasone/Propylene Glyc [Diprolene 0.05% Ointment] 15 gm TP BID 02/05/18 [Last Taken Unknown] Levothyroxine Sodium [Synthroid] 100 mcg PO DAILY 02/28/18 [Last Taken 02/28/18 17:00] Acetaminophen [Tylenol] 650 mg PO Q6H PRN #30 tablet 03/01/18 [Last Taken Unknown] Apixaban [Eliquis] 5 mg PO BID #60 tablet 03/01/18 [Last Taken Unknown] Metoprolol Tartrate [Lopressor] 12.5 mg PO Q12H tablet 03/01/18 [Last Taken Unknown] Aspirin 81 mg PO DAILY 03/05/18 [Last Taken Unknown] Bifidobacterium Infantis [Align] 4 mg PO DAILY 03/05/18 [Last Taken Unknown] Mycophenolate Mofetil [Cellcept] 1,000 mg PO BID 03/05/18 [Last Taken Unknown] Nystatin 100,000 unit PO QID 03/05/18 [Last Taken Unknown] - History of Present Illness Narrative: Patient has a history of sceroderma and recurent bowel obstructions. she was admitted a months ago for a bowel obstruction, decompressed with sigmoidoscopy and referred to the [facility]. She was admitted five days ago for an episode of atrial fibrillation and discharged the next days after converting into sinus rhythm. She states that she felt good for a day or two and then started to have abdominal pain, nausea and intermittent vomiting. She is eating very little, feels light headed, denies chest pain or palpitations Timing: getting worse Quality: moderate, aching Associated Symptoms: Present: nausea, swelling/mass in abdomen. Absent: head ache, fever/chills Prior Abdominal Problems: Present: similar symptoms Review of Systems - Review of Systems Constitutional: Present: recent illness, fatigue, malaise. Absent: fever, chills ENT: Absent: nose congestion, sore throat Respiratory: Absent: shortness of breath, cough Cardiology: Absent: chest pain Gastrointestinal/Abdominal: Present: See HPI Genitourinary: Present: no symptoms reported Neurological: Absent: headache Medical History (Last Reviewed 03/05/18 @ 16:47 by Lyndsey Chung MD) Atrial fibrillation (Resolved) Chronic diarrhea Limited systemic sclerosis Amyloidosis Onset Date: 09/15/16 Anemia Onset Date: Unknown Barretts esophagus Onset Date: Unknown CAD (coronary artery disease) Onset Date: ~2009 Hyperlipidemia Onset Date: Unknown Hypothyroidism (acquired) Onset Date: Unknown Raynauds syndrome Onset Date: Unknown CREST (calcinosis, Raynaud's phenomenon, esophageal dysfunction, sclerodactyly, telangiectasia) Onset Date: 04/23/16 History of carcinoma in situ of breast Onset Date: ~2002 History of intestinal obstruction Onset Date: 08/10/17 Surgical History: Surgical History (Last Reviewed 03/05/18 @ 16:47 by Lyndsey Chung MD) History of esophagogastroduodenoscopy Onset Date: ~2017 History of lumpectomy of right breast Onset Date: ~2003 History of rectal surgery Onset Date: ~2003 History of tubal ligation Onset Date: ~1981 Family History: Family History (Last Reviewed 03/05/18 @ 15:13 by Shanna Munguia RN) Father Diabetes Heart disease Cancer Mother Heart disease Social History: Preferred Language Korean Do you have any worship or No cultural preference? Smoking Status Former smoker Abuse History No History of abuse Psych History Hx of Depression Alcohol Use none Drug Use none Physical Exam - Physical Exam General Appearance: Present: wd/wn, alert, mild distress, anxious Ears, Nose, Throat: Present: normal pharynx Respiratory: Present: no respiratory distress, normal breath sounds, lungs clear Cardiovascular/Chest: Present: regular rate, rhythm, no murmur Gastrointestinal/Abdominal: Present: normal bowel sounds, soft, tenderness - mildly throughout, distended. Absent: guarding, rebound Extremity Exam: Present: no edema Neurological Exam: Present: alert, oriented, normal mood/affect Skin Exam: Present: normal color, warm/dry ED Progress - Results and Orders Patient's Lab Results:: I have reviewed the patient's lab results. - Vital Signs Patient's Vital Signs:: I have reviewed the patient's vital signs. Vital Signs: Vital Signs 03/05/18 11:54 Temperature 37.4 C Pulse Rate 71 Respiratory Rate 18 Blood Pressure 136/78 O2 Sat by Pulse Oximetry 98 - EKG EKG: NSR, nonspecific ST T wave changes EKG read: Interp. by me - Progress/Reassessment Chief Complaint: General Assessment Progress Note-Subjective: 03/05/18 13:[address] Sams, will admit here for decompression, will need referral to GI/surgery at the [facility], consider transfer for direct admission after weekend 03/05/18 13:[address] Potts, okay to admit to him as medical doctor 03/05/18 14:04 discussed plan with patient and family, patient feeling better after pain meds Departure Clinical Impression: Bowel obstruction Qualifiers: Intestinal obstruction type: unspecified Intestinal obstruction extent: complete Qualified Code(s): K56.601 - Complete intestinal obstruction, unspecified as to cause - Departure Disposition: Still a patient Condition: Stable
[2018-03-05] MEDS ORDERED: HYDROmorphone HCL 1 MG/ML DISP.SYRIN IV ONE (12:34)
[2018-03-05 12:50] LABS: Anion Gap 13.4 mmol/L (6.8-13.8); BUN/Creatinine Ratio 63.5 (9.0-21.6); Bilirubin, Total 0.5 mg/dL (0.0-1.1); Calcium * 8.5 mg/dL (7.9-10.9); Potassium 3.4 mmol/L (3.4-4.6); Total Protein 6.7 gm/dL (6.2-8.2); Troponin I 0.031 ng/mL (0.00-0.10)
[2018-03-05 13:22] LABS: Hematocrit 33.7 % (37.0-47.0); Hemoglobin 11.1 gm/dL (12.5-16.0); Mean Cell Volume 90.1 fl (78-100); Mean Corpuscular Hemoglobin 29.7 pg (27-31); Mean Corpuscular Hgb Conc 32.9 g/dl (32-36); Mean Platelet Volume 8.7 fl (8-12.5); Neutrophil # 5.4 K/mm3 (1.3-6.0); Neutrophil % 82.6 % (42-75.0); Platelet Count 540 K/mm3 (150-450); Red Blood Count 3.74 M/mm3 (4.2-5.4); Red Cell Distribution Width 14.3 % (11.5-14.0); White Blood Count 6.6 K/mm3 (4.0-10.5)
[2018-03-05] MEDS ORDERED: HYDROmorphone HCL 1 MG/ML DISP.SYRIN ONE (13:43)
[2018-03-05 13:57] LABS: Urine Appearance Slightly Cloudy (CLEAR); Urine Color Amber
[2018-03-05 14:02] LABS: Urine Bilirubin Negative (NEGATIVE); Urine Blood 250 /ul (NEGATIVE); Urine Ketone 15 mg/dL (NEGATIVE); Urine Protein 30 mg/dL (NEGATIVE); Urine Urobilinogen Normal (NORMAL); Urine pH 5.5 pH (5.0-7.0)
[2018-03-05 14:03] LABS: Urine Nitrite Negative (NEGATIVE)
[2018-03-05 14:05] LABS: Urine Bacteria 4+
[2018-03-05] MEDS ORDERED: NORMAL SALINE 1,000 ML IV ONE (14:14)
--- NOTE | 2018-03-05 14:42 | HP ---
Chief Complaint - Chief Complaint Date of Service: 03/05/18 Time of Service: 14:41 Chief Complaint: abdominal pain History of Present Illness: Verónica Yousif, is 72-year-old white female, patient of Dr. Massey, with past medical history of scleroderma, bowel obstructions, hyperlipidemia, hypothyroidism, Ayon's esophagus, who was admitted on 03/05/2018 because of abdominal pain. The patient was just recently discharged from our hospital for atrial fibrillation with rapid ventricular response last Wednesday. She converted spontaneously and was started on Eliquis. Since after her discharge, the patient said that she has not been having passage of gas and has had no bowel movement since then. She started having nausea and vomiting as well as abdominal pain and so she went to our emergency room. She was found to have abdominal gas pattern with air-fluid level consistent with possible bowel obstruction. She was then admitted for further evaluation and treatment. The ED physician was able to Dr. Sams who will again try to do decompression on her. Her appointment with Gastroenteerology, [facility] is not until March. Medical History (Last Reviewed 03/05/18 @ 15:23 by Massiel Vigil RN) Atrial fibrillation (Resolved) Chronic diarrhea Limited systemic sclerosis Amyloidosis Onset Date: 09/15/16 Anemia Onset Date: Unknown Barretts esophagus Onset Date: Unknown CAD (coronary artery disease) Onset Date: ~2009 Hyperlipidemia Onset Date: Unknown Hypothyroidism (acquired) Onset Date: Unknown Raynauds syndrome Onset Date: Unknown CREST (calcinosis, Raynaud's phenomenon, esophageal dysfunction, sclerodactyly, telangiectasia) Onset Date: 04/23/16 History of carcinoma in situ of breast Onset Date: ~2002 History of intestinal obstruction Onset Date: 08/10/17 Surgical History: Surgical History (Last Reviewed 03/05/18 @ 15:13 by Shanna Munguia RN) History of esophagogastroduodenoscopy Onset Date: ~2017 History of lumpectomy of right breast Onset Date: ~2003 History of rectal surgery Onset Date: ~2003 History of tubal ligation Onset Date: ~1981 Family History: Family History (Last Reviewed 03/05/18 @ 15:13 by Shanna Munguia, RN) Father Diabetes Heart disease Cancer Mother Heart disease Social History: Preferred Language Bulgarian Do you have any roman catholic or No cultural preference? Smoking Status Former smoker Abuse History No History of abuse Psych History Hx of Depression Alcohol Use none Drug Use none Review Of Systems (GEN) - Review of Systems Generalized/Overall Review: Absent: Chills, Fever Respiratory: Absent: Cough, Shortness of Breath, Orthopnea Cardiac: Absent: Chest Pain, Edema, Palpitations Abdominal: Present: Nausea, Vomiting, Abdominal Pain Genitourinary: Absent: Urgency, Frequency Musculoskeletal: Present: Back Pain Immunizations: IMMUNIZATION HX Immunizations Up to Date Yes History of Influenza Vaccine Yes Hx Pneumococcal Vaccination Yes Allergies/Adverse Reactions: Allergies Allergy/AdvReac Type Severity Reaction Status Date / Time minocycline AdvReac Severe Black Verified 03/05/18 15:13 spots inside mouth Home Medications: HOME MEDICATIONS Ferrous Sulfate [Iron] 325 mg PO DAILY 04/16/16 [Last Taken 02/28/18 17:00] Hydroxychloroquine Sulfate [Plaquenil] 200 mg PO DAILY 04/16/16 [Last Taken 02/28/18 17:00] Omeprazole 40 mg PO BID 04/16/16 [Last Taken 02/28/18 17:00] Simvastatin [Zocor] 10 mg PO DAILY 04/16/16 [Last Taken 02/28/18 17:00] Polyethylene Glycol 3350 [Miralax] 17 gm PO DAILY PRN 08/29/16 [Last Taken 02/04/18 20:00] amlodipine 5 mg tablet 5 mg PO DAILY 12/09/17 [Last Taken 02/28/18 17:00] potassium chloride ER 20 mEq tablet,extended release(part/cryst) 40 meq PO DAILY #180 tab 12/16/17 [Last Taken 02/28/18 17:00] Lactobacillus Combo No.10 [Probiotic] 1 ea PO DAILY 02/04/18 [Last Taken 02/04/18 20:00] Nitroglycerin [Nitro-Bid 2% Ointment] 1 inch TD BID PRN 02/04/18 [Last Taken Unknown] Oxybutynin Chloride [Ditropan] 10 mg PO DAILY 02/04/18 [Last Taken 02/28/18 17:00] Pilocarpine HCl 5 mg PO TID 02/04/18 [Last Taken 02/28/18 17:00] Betamethasone/Propylene Glyc [Diprolene 0.05% Ointment] 15 gm TP BID 02/05/18 [Last Taken Unknown] Levothyroxine Sodium [Synthroid] 100 mcg PO DAILY 02/28/18 [Last Taken 02/28/18 17:00] Acetaminophen [Tylenol] 650 mg PO Q6H PRN #30 tablet 03/01/18 [Last Taken Unknown] Apixaban [Eliquis] 5 mg PO BID #60 tablet 03/01/18 [Last Taken Unknown] Metoprolol Tartrate [Lopressor] 12.5 mg PO Q12H tablet 03/01/18 [Last Taken Unknown] Exam - Exam Vital Signs: Vital Signs - Last Taken Temp 37.4 C 03/05/18 11:54 Pulse 65 03/05/18 14:29 Resp 14 03/05/18 14:29 BP 121/56 03/05/18 14:29 Pulse Ox 96 03/05/18 14:29 Constitutional: Present: Alert, Oriented x3, Cooperative, Elderly, Thin and frail ENT Exam: Present: hearing grossly normal Eye Exam: bilateral eye: normal inspection, PERRL, EOMI Neck: Present: supple Respiratory: Present: normal breath sounds, No rales, No wheezing Cardiovascular/Chest: Present: regular rate, rhythm, no JVD, no murmur Abdomen: Present: soft, nontender, other - tympanitic, distended, hypoactive Extremity: Present: no pedal edema, no calf tenderness Diagnostic Studies: Abnormal Lab Results 03/05/18 03/05/18 03/05/18 Range/Units 12:23 12:23 13:22 RBC 3.74 L (4.2-5.4) M/mm3 Hgb 11.1 L (12.5-16.0) gm/dL Hct 33.7 L (37.0-47.0) % RDW 14.3 H (11.5-14.0) % Plt Count 540 H (150-450) K/mm3 Immature Gran % (Auto) 0.60 H (0.001-0.429) % Immature Gran # (Auto) 0.04 H (0.000-0.0310) K/mm3 Neutrophils % 82.6 H (42-75.0) % Lymphocytes % 9.6 L (20-51) % Lymphocytes # 0.63 L (1.5-3.5) k/mm3 Carbon Dioxide 22.0 L (24-32.6) mmol/L BUN 61 H D (3-23) mg/dL BUN/Creatinine Ratio 63.5 H (9.0-21.6) Albumin 3.0 L (3.4-5.0) gm/dl Urine Protein 30 H (NEGATIVE) mg/dL Urine Blood 250 H (NEGATIVE) /ul Ur Leukocyte Esterase 75 H (NEGATIVE) /ul Urine RBC 10-25 H (0-5) /hpf Urine WBC 10-25 H (0-5) /hpf Urine Bacteria 4+ H (NONE) Laboratory Results WBC 6.6 K/mm3 (4.0-10.5) 03/05/18 12: RBC 3.74 M/mm3 (4.2-5.4) L 03/05/18 12:23 Hgb 11.1 gm/dL (12.5-16.0) L 03/05/18 12: Hct 33.7 % (37.0-47.0) L 03/05/18 12: MCV 90.1 fl (78-100) 03/05/18 12: MCH 29.7 pg (27-31) 03/05/18 12: MCHC 32.9 g/dl (32-36) 03/05/18 12: RDW 14.3 % (11.5-14.0) H 03/05/18 12:23 Plt Count 540 K/mm3 (150-450) H 03/05/18 12:23 MPV 8.7 fl (8-12.5) 03/05/18 12:23 Immature Gran % (Auto) 0.60 % (0.001-0.429) H 03/05/18 12: Immature Gran # (Auto) 0.04 K/mm3 (0.000-0.0310) H 03/05/18 12:23 Neutrophils % 82.6 % (42-75.0) H 03/05/18 12:23 Lymphocytes % 9.6 % (20-51) L 03/05/18 12: Monocytes % 7.0 % (0.0-9) 03/05/18 12: Eosinophils % 0.2 % (0.0-3.0) 03/05/18 12: Basophils % 0.0 % (0.0-1.0) 03/05/18 12:23 Nucleated RBC % 0.0 k/mm3 (0-1) 03/05/18 12:23 Neutrophils # 5.4 K/mm3 (1.3-6.0) 03/05/18 12:23 Lymphocytes # 0.63 k/mm3 (1.5-3.5) L 03/05/18 12:23 Monocytes # 0.5 k/mm3 (0.0-1.0) 03/05/18 12: Eosinophils # 0.0 k/mm3 (0.0-0.7) 03/05/18 12:23 Absolute Basophils 0.0 k/mm3 (0.0-0.1) 03/05/18 12:23 Sodium 132 mmol/L (132-142) 03/05/18 12:23 Plasma Sodium 132 mmol/L (130-142) 03/05/18 12:23 Potassium 3.4 mmol/L (3.4-4.6) 03/05/18 12:23 Chloride 100 mmol/L (97-106) 03/05/18 12:23 Carbon Dioxide 22.0 mmol/L (24-32.6) L 03/05/18 12:23 Anion Gap 13.4 mmol/L (6.8-13.8) 03/05/18 12:23 BUN 61 mg/dL (3-23) H D 03/05/18 12:23 Creatinine 0.96 mg/dL (0.4-1.4) 03/05/18 12:23 Est GFR (Non-Af Amer) 61 mL/min (60-130) D 03/05/18 12:23 BUN/Creatinine Ratio 63.5 (9.0-21.6) H 03/05/18 12:23 Random Glucose 98 mg/dL (70-110) 03/05/18 12:23 Calcium 8.5 mg/dL (7.9-10.9) 03/05/18 12:23 Calcium Adj for Albumin 9.0 mg/dL (8.4-10.2) 03/05/18 12:23 Total Bilirubin 0.5 mg/dL (0.0-1.1) 03/05/18 12:23 AST 28 U/L (0-48) 03/05/18 12:23 ALT 51 U/L (19-67) 03/05/18 12:23 Alkaline Phosphatase 138 U/L (50-170) 03/05/18 12:23 Troponin I 0.031 ng/mL (0.00-0.10) 03/05/18 12:23 Total Protein 6.7 gm/dL (6.2-8.2) 03/05/18 12:23 Albumin 3.0 gm/dl (3.4-5.0) L 03/05/18 12:23 Urine Color Anh 03/05/18 13: Urine Appearance Slightly cloudy (CLEAR) 03/05/18 13:22 Urine pH 5.5 pH (5.0-7.0) 03/05/18 13:22 Ur Specific [place] 1.030 SP.GR. (1.005-1.010) 03/05/18 13: Urine Protein 30 mg/dL (NEGATIVE) H 03/05/18 13:22 Urine Glucose (UA) Negative mg/dL (NEGATIVE) 03/05/18 13: Urine Ketones 15 mg/dL (NEGATIVE) 03/05/18 13:22 Urine Blood 250 /ul (NEGATIVE) H 03/05/18 13:22 Urine Nitrate Negative (NEGATIVE) 03/05/18 13:22 Urine Bilirubin Negative mg/dl (NEGATIVE) 03/05/18 13:22 Prot Sulfosalicylic Acd 1+ mg/dL (0) 03/05/18 13:22 Urine Urobilinogen Normal EU/dl (NORMAL) 03/05/18 13:22 Ur Leukocyte Esterase 75 /ul (NEGATIVE) H 03/05/18 13:22 Urine RBC 10-25 /hpf (0-5) H 03/05/18 13:22 Urine WBC 10-25 /hpf (0-5) H 03/05/18 13:22 Ur Epithelial Cells None seen /hpf (0-5) 03/05/18 13:22 Urine Bacteria 4+ (NONE) H 03/05/18 13:22 Urine Culture Comments Culture to follow 03/05/18 13:22 Assessment/Plan - Assessment/Plan (1) Abdominal pain Assessment: due to bowel obstruction vs dysfunctional gut Problem: Acute Qualifiers: Abdominal location: generalized Qualified Code(s): R10.84 - Generalized abdominal pain (2) Small bowel obstruction Assessment: vs dysfunctional gut- for decompression. Problem: Suspected (3) UTI (urinary tract infection) Assessment: will start her on IV cipro Problem: Acute (4) Hypothyroidism Assessment: will continue with home medication Problem: Chronic Qualifiers: Hypothyroidism type: acquired Qualified Code(s): E03.9 - Hypothyroidism, unspecified (5) Atrial fibrillation Assessment: on oral anticoagulation Problem: Resolved Qualifiers: Atrial fibrillation type: paroxysmal Qualified Code(s): I48.0 - Paroxysmal atrial fibrillation
[2018-03-05] MEDS: CIPROFLOXACIN IN 5 % DEXTROSE 400 MG/200 ML BAG IV SCH (15:45)
--- NOTE | 2018-03-05 16:09 | CONS ---
- Reason for consultation (1) Abdominal distension (gaseous) Date of Service: 03/05/18 HPI - General Date of Service: 03/05/18 Narrative: The patient was just discharged from the hospital on 03/01/2018 after treatment for atrial fibrillation. Since returning home she reports she has not passed gas or had a bowel movement. She has been a little nauseated but has not vomited. Her last p.o. intake was some boost this morning and a little water later in the day. Abdominal x-ray in the emergency department demonstrated gaseous distention of the abdomen Source: patient, family, RN/MD, RN notes reviewed, old records Exam Limitations: no limitations - History of Present Illness Initial Comments: The patient has a 20+ year history of scleroderma with CREST, and GI involvement for the last 7 or 8 years. She has had 5 acute admissions and one observation admission to this institution for presumed bowel obstruction. On 04/16/2016 she was admitted to acute care CT at that time showed only stomach in the chest. The obstruction with CT scan evidence of bowel obstruction. Films at that time demonstrated a large hiatal hernia and possibly part of the colon in the chest as well, although the report does not mention that finding. Her obstruction resolved after the CT contrast. She was admitted to observation on 08/29/[address] scan of the abdomen and pelvis revealed obstruction. At that time there was only stomach in the chest on the CT, however there was a question of a large decubitus ulcer or possibly rectal prolapse. There was no rectal prolapse or decubitus on physical exam, and in reviewing those films it appears the patient was incontinent of stool during the CT. She had diarrhea after the CT contrast and was discharged with follow-up by Dr. Massey. She was admitted to acute care on 07/13/2017 with profound hypokalemia. She had just been at the [facility] and because there had been a question about a kidney stone there, a CT scan of the abdomen and pelvis was done here without contrast. This revealed diffuse gaseous distention and some swirling of the mesentery. [facility] had [facility] to do a sigmoidoscopy however there was very poor prep. She also tested positive there for C. difficile and so rather than use enemas to perform a colonoscopy, that was deferred. Here she was found to have a Klebsiella UTI which was treated and she was discharged to follow-up with her primary care physician. She was admitted to acute care on 08/10/2017 with atrial fibrillation and rapid ventricular response with hypotension and acute renal failure. CT scan again showed possible bowel obstruction however this resolved after a nasogastric tube was placed. Subsequent to that she was seen at the [facility] and underwent a colonoscopy on 11/10/2017. This was done to investigate a possible splenic flexure mass as the distal colon was collapsed and the proximal colon was dilated. The report states the prep was very poor with liquid and solid stool, and the exam was only accomplished to the ascending colon. There were no gross lesions at that time. She was admitted to acute care here on 12/02/2017 again with gaseous distention. A nasogastric tube was placed and the obstruction resolved. She subsequently underwent a colonoscopy at the [facility] on 01/21/2018. According to the patient "they made it all the way around and remove the polyp but it was not the kind that is serious" She was again admitted to acute care here on 02/04/2018 with atrial fibrillation and again findings of small bowel obstruction on images. At that time she underwent a colonoscopy to 90 cm with decompression and resolution of her symptoms. There are records from the [facility] EGD which showed scleroderma esophagus and very poor clearance of material from the stomach. She is also followed by GI there and has had manometry. After her January admission she was referred again to GI at the [facility] however her appointment is not scheduled until March. Allergies/Adverse Reactions: Allergies minocycline Adverse Reaction (Severe, Verified 03/05/18 15:13) Black spots inside mouth Home Medications: Home Medications Medication Instructions Recorded Last Taken Ferrous Sulfate [Iron] 650 mg PO DAILY 04/16/16 02/28/18 17:00 Hydroxychloroquine Sulfate 300 mg PO DAILY 04/16/16 02/28/18 17:00 [Plaquenil] Omeprazole 40 mg PO BID 04/16/16 02/28/18 17:00 Simvastatin [Zocor] 10 mg PO QPM 04/16/16 02/28/18 17:00 Polyethylene Glycol 3350 [Miralax] 17 gm PO DAILY PRN 08/29/16 02/04/18 20:00 amlodipine 5 mg tablet 5 mg PO DAILY 12/09/17 02/28/18 17:00 potassium chloride ER 20 mEq 40 meq PO DAILY #180 tab 12/16/17 02/28/18 17:00 tablet,extended release(part/cryst) Lactobacillus Combo No.10 1 ea PO DAILY 02/04/18 02/04/18 20:00 [Probiotic] Nitroglycerin [Nitro-Bid 2% 1 inch TD BID PRN 02/04/18 Unknown Ointment] Oxybutynin Chloride [Ditropan] 10 mg PO DAILY 02/04/18 02/28/18 17:00 Pilocarpine HCl 5 mg PO TID 02/04/18 02/28/18 17:00 Betamethasone/Propylene Glyc 15 gm TP BID 02/05/18 Unknown [Diprolene 0.05% Ointment] Levothyroxine Sodium [Synthroid] 100 mcg PO DAILY 02/28/18 02/28/18 17:00 Acetaminophen [Tylenol] 650 mg PO Q6H PRN #30 tablet 03/01/18 Unknown Apixaban [Eliquis] 5 mg PO BID #60 tablet 03/01/18 Unknown Metoprolol Tartrate [Lopressor] 12.5 mg PO Q12H tablet 03/01/18 Unknown Aspirin 81 mg PO DAILY 03/05/18 Unknown Bifidobacterium Infantis [Align] 4 mg PO DAILY 03/05/18 Unknown Mycophenolate Mofetil [Cellcept] 1,000 mg PO BID 03/05/18 Unknown Nystatin 100,000 unit PO QID 03/05/18 Unknown Procedures Drainage of Ascending Colon, Via Natural or Artificial Opening Endoscopic (02/04/18) Drainage of Cecum, Via Natural or Artificial Opening Endoscopic (02/04/18) Drainage of Stomach with Drainage Device, Via Natural or Artificial Opening (02/04/18) Drainage of Transverse Colon, Via Natural or Artificial Opening Endoscopic (02/04/18) Excision of axillary lymph node (06/27/02) Local excision of lesion of breast (06/27/02) Medications - Medications Current Medications: Current Medications Sodium Chloride (Sodium Chloride 0.9%) 1,000 mls @ 125 mls/hr IV .Q8H ONE Stop: 03/05/18 22:13 Last Admin: 03/05/18 15:07 Dose: 125 mls/hr Ciprofloxacin/Dextrose (Cipro) 400 mg in 200 mls @ 200 mls/hr IV Q12H [facility]; Protocol Stop: 04/04/18 15:16 Last Admin: 03/05/18 15:45 Dose: 200 mls/hr Review of Systems - Review of Systems Generalized/Overall Review: Present: Weakness. Absent: Chills, Fever EENTM: Present: No Symptoms Reported Respiratory: Present: No Symptoms Reported Cardiac: Absent: Chest Pain, Palpitations Abdominal: Present: Other - She is very distended, however she states not as bad as earlier this week. She has not had a bowel movement or passed gas since Wednesday Genitourinary: Absent: Burning Musculoskeletal: Present: No Symptoms Reported Neurological: Present: No Symptoms Reported Skin: Present: No Symptoms Reported Physical Examination - Exam Vital Signs: Vital Signs - Last Taken Temp 36.4 C 03/05/18 14:43 Pulse 63 03/05/18 14:43 Resp 16 03/05/18 14:43 BP 131/70 03/05/18 14:43 Pulse Ox 93 03/05/18 14:43 O2 Oxygen Delivery Method Room Air Constitutional: Present: Alert, Oriented x3, No distress, Thin and frail ENT Exam: Present: normal ENT inspection, hearing grossly normal Eye Exam: bilateral eye: normal inspection Neck: Present: full range of motion, supple Breasts: Present: Exam deferred Respiratory: Present: lungs clear Cardiovascular/Chest: Present: regular rate, rhythm, no murmur, other - Her underlying rhythm is regular with 2 pauses over 1 full minute of auscultation Abdomen: Present: no rebound tenderness, distended, no bowel sounds. Absent: hernia /Rectal: Present: Exam deferred Extremity: Present: normal range of motion, normal inspection, no pedal edema, no calf tenderness Skin Exam: Present: pallor Neurologic: Present: design inserter II-XII nml as tested, no motor/sensory deficits Appearance: Present: appropriate appearance, appropriate insight Eye contact: Present: cooperative, good eye contact Thoughts: Present: normal thought pattern - Results and Findings: Lab/Microbiology results last 24 hrs: Abnormal/Pending Laboratory Last 24 HRS 03/05/18 03/05/18 03/05/18 13:22 12:23 12:23 RBC 3.74 L Hgb 11.1 L Hct 33.7 L RDW 14.3 H Plt Count 540 H Immature Gran % (Auto) 0.60 H Immature Gran # (Auto) 0.04 H Neutrophils % 82.6 H Lymphocytes % 9.6 L Lymphocytes # 0.63 L Carbon Dioxide 22.0 L BUN 61 H D BUN/Creatinine Ratio 63.5 H Albumin 3.0 L Urine Protein 30 H Urine Blood 250 H Ur Leukocyte Esterase 75 H Urine RBC 10-25 H Urine WBC 10-25 H Urine Bacteria 4+ H - Assessments/Findings (1) Abdominal distension (gaseous) Diagnosis(s): She has the underlying diagnosis of scleroderma and CREST. This is been shown [facility] the [facility] to involve the esophagus, however the contribution of this disease to her small bowel and colon dysfunction is unclear. She has a very large hiatal hernia which has intermittently contained stomach and quite possibly small or large intestine. She has also had a failed operation for rectal prolapse with rectal incontinence. She has had a very patulous redundant colon demonstrated on colonoscopy. Although CT scans of the abdomen have suggested small bowel obstruction, there has not been a definite transition point demonstrated. Whether her intermittent episodes of distention has been due to small bowel or colonic colonic obstruction is unclear as CT scans have been unable to determine the exact etiology. She could have intermittent small bowel obstructions from adhesions or internal hernia as she has had a previous operation. She could also have intermittent small or transverse colon herniation into the chest as well. Recommendation: She has had a suitable period of n.p.o. status and could undergo endoscopic decompression of the colon. It would also be useful to perform an EGD with possible push enteroscopy to empty the proximal GI tract as well. This is not been done at this institution. After interactive discussion with her about the relative merits of EGD and colonoscopy and the risks of those procedures, her questions were answered to her apparent satisfaction and she has given informed consent for EGD and colonoscopy. Problem: Acute
--- NOTE | 2018-03-05 16:49 | ANES ---
Anesthesia Pre Procedure Eval Vitals/Labs: Last Vital Signs Temp 36.4 C 03/05/18 14:43 Pulse 63 03/05/18 14:43 Resp 16 03/05/18 14:43 BP 131/70 03/05/18 14:43 Pulse Ox 93 03/05/18 14:43 HOME MEDICATIONS Ferrous Sulfate [Iron] 650 mg PO DAILY 04/16/16 [Last Taken 02/28/18 17:00] Hydroxychloroquine Sulfate [Plaquenil] 300 mg PO DAILY 04/16/16 [Last Taken 02/28/18 17:00] Omeprazole 40 mg PO BID 04/16/16 [Last Taken 02/28/18 17:00] Simvastatin [Zocor] 10 mg PO QPM 04/16/16 [Last Taken 02/28/18 17:00] Polyethylene Glycol 3350 [Miralax] 17 gm PO DAILY PRN 08/29/16 [Last Taken 02/04/18 20:00] amlodipine 5 mg tablet 5 mg PO DAILY 12/09/17 [Last Taken 02/28/18 17:00] potassium chloride ER 20 mEq tablet,extended release(part/cryst) 40 meq PO DAILY #180 tab 12/16/17 [Last Taken 02/28/18 17:00] Lactobacillus Combo No.10 [Probiotic] 1 ea PO DAILY 02/04/18 [Last Taken 02/04/18 20:00] Nitroglycerin [Nitro-Bid 2% Ointment] 1 inch TD BID PRN 02/04/18 [Last Taken Unknown] Oxybutynin Chloride [Ditropan] 10 mg PO DAILY 02/04/18 [Last Taken 02/28/18 17:00] Pilocarpine HCl 5 mg PO TID 02/04/18 [Last Taken 02/28/18 17:00] Betamethasone/Propylene Glyc [Diprolene 0.05% Ointment] 15 gm TP BID 02/05/18 [Last Taken Unknown] Levothyroxine Sodium [Synthroid] 100 mcg PO DAILY 02/28/18 [Last Taken 02/28/18 17:00] Acetaminophen [Tylenol] 650 mg PO Q6H PRN #30 tablet 03/01/18 [Last Taken Unknown] Apixaban [Eliquis] 5 mg PO BID #60 tablet 03/01/18 [Last Taken Unknown] Metoprolol Tartrate [Lopressor] 12.5 mg PO Q12H tablet 03/01/18 [Last Taken Unknown] Aspirin 81 mg PO DAILY 03/05/18 [Last Taken Unknown] Bifidobacterium Infantis [Align] 4 mg PO DAILY 03/05/18 [Last Taken Unknown] Mycophenolate Mofetil [Cellcept] 1,000 mg PO BID 03/05/18 [Last Taken Unknown] Nystatin 100,000 unit PO QID 03/05/18 [Last Taken Unknown] Allergies/Adverse Reactions: Allergies Allergy/AdvReac Type Severity Reaction Status Date / Time minocycline AdvReac Severe Black Verified 03/05/18 15:13 spots inside mouth - Planned Procedure Planned Procedure: bowel abstruction Medication List Reviewed:: Yes Allergies Verified: Yes Medical History (Last Reviewed 03/05/18 @ 16:48 by Marshal Nevarez CRNA) Atrial fibrillation (Resolved) Chronic diarrhea Limited systemic sclerosis Amyloidosis Onset Date: 09/15/16 Anemia Onset Date: Unknown Barretts esophagus Onset Date: Unknown CAD (coronary artery disease) Onset Date: ~2009 Hyperlipidemia Onset Date: Unknown Hypothyroidism (acquired) Onset Date: Unknown Raynauds syndrome Onset Date: Unknown CREST (calcinosis, Raynaud's phenomenon, esophageal dysfunction, sclerodactyly, telangiectasia) Onset Date: 04/23/16 History of carcinoma in situ of breast Onset Date: ~2002 History of intestinal obstruction Onset Date: 08/10/17 Surgical History (Last Reviewed 03/05/18 @ 16:48 by Marshal Nevarez CRNA) History of esophagogastroduodenoscopy Onset Date: ~2017 History of lumpectomy of right breast Onset Date: ~2003 History of rectal surgery Onset Date: ~2003 History of tubal ligation Onset Date: ~1981 Family History (Last Reviewed 03/05/18 @ 16:48 by Marshal Nevarez CRNA) Father Diabetes Heart disease Cancer Mother Heart disease - Family Anesthesia History Family History:: no untoward family reactions to anesthesia - Airway/Neck/Teeth Denture Type: Full- Upper & Lower Neck Exam: full range of motion, normal inspection Mallampatti Score: 2 Thyromental (T-M) distance: > 6 cm Mandibulo Hyoid distance: > 3 cm - Respiratory Respiratory: lungs clear, normal breath sounds Smoking Status: Never smoker Sleep Apnea currently treated: No Sleep Apnea by current assessment: No - Cardiovascular Patient History - Cardiac/Respiratory: Arrhythmias, Coronary Heart Disease, Hypertension Tolerates Activity: Fair Heart Sounds: S1 & S2, Regular - Anesthesia Assessment and Plan ASA Class: PS, III, E Anesthesia Type Plan: General ET Planned difficult intubation/equipment available: No
--- NOTE | 2018-03-05 18:37 | ANES ---
Post Anesthesia Discharge - Transfer of Care Transfer of Care handoff given to nurse: Yes - Discharge from PACU Discharge from PACU when meets criteria: Yes
--- NOTE | 2018-03-05 18:37 | ANES ---
Post Anesthesia Assessment - Vital Signs Vitals: Last Vital Signs Temp 36.3 C 03/05/18 18:25 Pulse 67 03/05/18 18:30 Resp 18 03/05/18 18:30 BP 147/79 03/05/18 18:30 Pulse Ox 97 03/05/18 18:30 Airway Patency: Normal - Mental Status Level Of Consciousness: Awake - Pain Level Pain Score: 0 - N/V Assessment Nausea/Vomiting Presence: None Dehydration:: No
--- NOTE | 2018-03-05 18:50 | OR ---
Operative Report - Dictated Report Narrative: Operative Report Date of operation: 03/05/2018 Preoperative diagnosis: Abdominal distention Postoperative diagnosis: Possible bowel obstruction Operation: Esophagogastroscopy with biopsies. Colonoscopy to 1 m Surgeon: Dr Sams Anesthesia: General endotracheal Dylan Nevarez CRNA Indications for procedure: The patient is a 72-year-old female who presented to the emergency room with gaseous distention and obstipation since 03/01/2018. 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 Abdominal x-ray shows gaseous distention she is brought for EGD and colonoscopy Findings: Very patulous esophagus compatible with scleroderma. Majority of the stomach in the chest. Gastropathy. Inability to intubate the duodenum due to angulation (Pathology and CLOtest pending). Collapsed, clean distal colon to 90 cm with large amount of liquid stool and colonic distention proximally. Narrative of procedure: The patient was identified preoperatively, and prior to the administration of anesthetic a multidisciplinary timeout was observed EGD: With the patient in the recumbent position, SCDs were applied and general endotracheal anesthetic was administered, and the patient's eyes covered with a towel. The flexible fiberoptic gastroscope was advanced into the posterior pharynx which appeared normal with exception of particulate food material which was carefully suctioned. The endotracheal tube was seen to be in good position. The supraglottic larynx appeared normal. The scope was advanced under direct vision into the proximal esophagus which was markedly distended with pooled green liquid which was suctioned. The esophagus appeared patulous with grossly normal mucosa down to the GE junction which appeared normally distensible. The scope was advanced into the stomach which was empty except for some scant particulate material. Care was used not to use air insufflation during the exam. There was haywood gastritic erythema more pronounced in the proximal stomach however no emily ulcers or neoplastic lesions were appreciated including a retroflexed view of the gastric fundus. The pylorus was visualized however could not be directly intubated despite multiple maneuvers due to angulation. The pylorus was, however, patent and a view was obtained into the duodenum. [employer] biopsies of gastric mucosa were obtained for CLOtest and pathology. The biopsy sites were seen to be hemostatic. The stomach was carefully suctioned flat, the scope withdrawn into the esophagus which was biopsied. The biopsy site was seen to be hemostatic. The esophagus was carefully suctioned flat, the scope was withdrawn from the patient, and this portion of the procedure terminated. 600 mL of green liquid was removed during the EGD. COLONOSCOPY: The patient was then placed in the left lateral position, and the perineum was inspected. There was no evidence of pilonidal disease or skin breakdown. The external appearance of the anus was compatible with a previous prolapse procedure with mucosa and advancing endoderm. Sphincter tone was absent. Digital rectal exam readily located the sigmoid colon. The flexible fiberoptic colonoscope was inserted into the rectum. The rectal mucosa and goff bmucosal vascular pattern appeared normal. The scope was advanced through the sigmoid colon using saline only insufflation. The mucosa appeared grossly normal. There was no haustral architecture. The colon was collapsed and clean with exception of 1 mucousy clot. The scope was advanced proximally through a beaked appearance architecture to approximately 90 cm where there was angulation. Beyond this point the colon was very patulous containing a large amount of liquid green stool. The gas from this section was suctioned and serially delivered into this segment from the proximal colon by compression. Eventually no more gas could be suctioned and the stool was too thick to suction as well. The scope was slowly withdrawn under suction with confirmation of previous findings, withdrawn from the patient and th this portion of the procedure terminated. At this juncture a nasogastric tube was inserted through the left nostril and guided into the stomach. Position of the tube was confirmed by re-passage of the gastroscope and identifying it within the stomach. The patient tolerated the anesthetic and procedure well without complication and was transferred to the recovery room awake, extubated, and in stable condition. Reviewed and electronically signed
[2018-03-05] MEDS ORDERED: NITROGLYCERIN 1 INCH PACKET TD PRN (20:10)
[2018-03-05] MEDS: METOPROLOL TARTRATE 25 MG TABLET PO SCH ×2 (21:48→22:26)
[2018-03-05] MEDS: APIXABAN 5 MG TABLET PO SCH (21:48)
[2018-03-05] MEDS: MYCOPHENOLATE MOFETIL 500 MG TABLET PO SCH (21:49)
[2018-03-05] MEDS ORDERED: DILTIAZEM HCL 5 MG/ML VIAL IV ONE (22:03)
[2018-03-05] MEDS ORDERED: METOPROLOL TARTRATE 25 MG TABLET PO ONE (23:30)
[2018-03-05] MEDS: ACETAMINOPHEN 325 MG TABLET PO PRN (23:40)
[2018-03-06] MEDS: CIPROFLOXACIN IN 5 % DEXTROSE 400 MG/200 ML BAG IV SCH ×2 (04:24→14:29)
[2018-03-06] MEDS ORDERED: LEVOTHYROXINE SODIUM 88 MCG TABLET PO SCH (06:30)
[2018-03-06] MEDS: PANTOPRAZOLE SODIUM 40 MG TABLET.EC PO SCH ×2 (07:11→16:45)
[2018-03-06] MEDS: ACETAMINOPHEN 325 MG TABLET PO PRN (07:11)
[2018-03-06] MEDS: METOPROLOL TARTRATE 25 MG TABLET PO SCH ×2 (07:15→21:13)
[2018-03-06] MEDS ORDERED: DIGOXIN 0.25 MG/ML AMPUL IV SCH ×2 (07:45→08:00)
[2018-03-06] MEDS ORDERED: DIGOXIN 0.25 MG/ML AMPUL IV ONE (08:00)
[2018-03-06] MEDS: ASPIRIN 81 MG TAB.CHEW PO SCH (08:05)
[2018-03-06] MEDS: OXYBUTYNIN CHLORIDE 5 MG TABLET PO SCH (08:06)
[2018-03-06] MEDS: POTASSIUM CHLORIDE 20 MEQ TABLET.SA PO SCH (08:06)
[2018-03-06] MEDS: MYCOPHENOLATE MOFETIL 500 MG TABLET PO SCH ×2 (08:06→21:14)
[2018-03-06] MEDS: APIXABAN 5 MG TABLET PO SCH ×2 (08:07→21:15)
[2018-03-06] MEDS: amLODIPine BESYLATE 5 MG TABLET PO SCH (08:07)
[2018-03-06 08:08] LABS: Hematocrit 33.2 % (37.0-47.0); Hemoglobin 10.8 gm/dL (12.5-16.0); Mean Cell Volume 90.7 fl (78-100); Mean Corpuscular Hemoglobin 29.5 pg (27-31); Mean Corpuscular Hgb Conc 32.5 g/dl (32-36); Mean Platelet Volume 8.4 fl (8-12.5); Neutrophil # 7.1 K/mm3 (1.3-6.0); Neutrophil % 87.2 % (42-75.0); Platelet Count 448 K/mm3 (150-450); Red Blood Count 3.66 M/mm3 (4.2-5.4); Red Cell Distribution Width 14.3 % (11.5-14.0); White Blood Count 8.1 K/mm3 (4.0-10.5)
[2018-03-06] MEDS: Pilocarpine Hcl 5 MG PO SCH ×3 (08:09→16:44)
[2018-03-06] MEDS: POTASSIUM CHLORIDE 20 MEQ in DEXTROSE 5%-NORMAL SALINE 990 ML IV SCH ×2 (08:10→23:25)
[2018-03-06] MEDS: HYDROmorphone HCL 1 MG/ML DISP.SYRIN IV PRN ×3 (08:14→21:27)
[2018-03-06] MEDS: LEVOTHYROXINE SODIUM 100 MCG TABLET PO SCH (08:19)
[2018-03-06 08:26] LABS: Anion Gap 12.3 mmol/L (6.8-13.8); BUN/Creatinine Ratio 56.1 (9.0-21.6); Calcium * 7.6 mg/dL (7.9-10.9); Carbon Dioxide 21.7 mmol/L (24-32.6); Estimated Creat Clear 69.5
[2018-03-06] MEDS: BETAMETHASONE TP SCH ×3 (08:37→21:14)
[2018-03-06] MEDS: PROPYLENE GLYC TP SCH ×3 (08:37→21:14)
[2018-03-06] MEDS ORDERED: HYDROXYCHLOROQUINE SULFATE 200 MG TABLET PO SCH (09:00)
[2018-03-06] MEDS ORDERED: POTASSIUM CHLORIDE IN WATER 100 ML IV SCH (10:15)
--- NOTE | 2018-03-06 10:37 | PN ---
Subjective - Date and Time Seen Date: 03/06/18 Time: 10:29 Subjective Narrative: Patient afebrile. Still no passage of gas. WBC is normal. K is 3. Objective - Review of Systems Generalized/Overall Review: Reports: Weakness. Denies: Chills, Fever Respiratory: Denies: Cough, Shortness of Breath Cardiac: Denies: Chest Pain, Edema, Palpitations Abdominal: Reports: Nausea, Abdominal Pain. Denies: Vomiting Genitourinary Symptoms: Reports: Urgency. Denies: Frequency - Vitals Vitals: Last Vital Signs Temp 36.7 C 03/06/18 09:00 Pulse 127 H 03/06/18 09:00 Resp 18 03/06/18 09:00 BP 105/74 03/06/18 09:00 Pulse Ox 95 03/06/18 09:00 - Abnormal Lab Findings Abnormal Lab Findings: Abnormal Lab Results 03/05/18 03/05/18 03/05/18 Range/Units 12:23 12:23 13:22 RBC 3.74 L (4.2-5.4) M/mm3 Hgb 11.1 L (12.5-16.0) gm/dL Hct 33.7 L (37.0-47.0) % RDW 14.3 H (11.5-14.0) % Plt Count 540 H (150-450) K/mm3 Immature Gran % (Auto) 0.60 H (0.001-0.429) % Immature Gran # (Auto) 0.04 H (0.000-0.0310) K/mm3 Neutrophils % 82.6 H (42-75.0) % Lymphocytes % 9.6 L (20-51) % Neutrophils # (1.3-6.0) K/mm3 Lymphocytes # 0.63 L (1.5-3.5) k/mm3 Potassium (3.4-4.6) mmol/L Carbon Dioxide 22.0 L (24-32.6) mmol/L BUN 61 H D (3-23) mg/dL BUN/Creatinine Ratio 63.5 H (9.0-21.6) Calcium (7.9-10.9) mg/dL Albumin 3.0 L (3.4-5.0) gm/dl Urine Protein 30 H (NEGATIVE) mg/dL Urine Blood 250 H (NEGATIVE) /ul Ur Leukocyte Esterase 75 H (NEGATIVE) /ul Urine RBC 10-25 H (0-5) /hpf Urine WBC 10-25 H (0-5) /hpf Urine Bacteria 4+ H (NONE) 03/06/18 03/06/18 Range/Units 08:03 08:03 RBC 3.66 L (4.2-5.4) M/mm3 Hgb 10.8 L (12.5-16.0) gm/dL Hct 33.2 L (37.0-47.0) % RDW 14.3 H (11.5-14.0) % Plt Count (150-450) K/mm3 Immature Gran % (Auto) 0.50 H (0.001-0.429) % Immature Gran # (Auto) 0.04 H (0.000-0.0310) K/mm3 Neutrophils % 87.2 H (42-75.0) % Lymphocytes % 8.6 L (20-51) % Neutrophils # 7.1 H (1.3-6.0) K/mm3 Lymphocytes # 0.70 L (1.5-3.5) k/mm3 Potassium 3.0 L (3.4-4.6) mmol/L Carbon Dioxide 21.7 L (24-32.6) mmol/L BUN 32 H (3-23) mg/dL BUN/Creatinine Ratio 56.1 H (9.0-21.6) Calcium 7.6 L (7.9-10.9) mg/dL Albumin (3.4-5.0) gm/dl Urine Protein (NEGATIVE) mg/dL Urine Blood (NEGATIVE) /ul Ur Leukocyte Esterase (NEGATIVE) /ul Urine RBC (0-5) /hpf Urine WBC (0-5) /hpf Urine Bacteria (NONE) - Exam Constitutional: Present: Alert, Oriented x3, Cooperative, Elderly, Thin and frail ENT Exam: Present: hearing grossly normal Neck: Present: supple Respiratory: Present: decreased breath sounds, No rales, No wheezing Cardiovascular/Chest: Present: no JVD, no murmur, bradycardia, tachycardia, irregularly irregular Abdomen: Present: soft, tender, distended, hypoactive Extremity: Present: no pedal edema, no calf tenderness Assessment/Plan - Problems/Diagnosis (1) Abdominal pain Problem: Acute Qualifiers: Abdominal location: generalized Qualified Code(s): R10.84 - Generalized abdominal pain Narrative: s/p EGD/colonoscopy with decompression (2) Small bowel obstruction Problem: Suspected Narrative: s/p decompression, will do a follow flat and upright of the abdomen. due to the several CTS done before, this was deferred this admission. (3) UTI (urinary tract infection) Problem: Acute Narrative: on IV cipro (4) Hypothyroidism Problem: Chronic Qualifiers: Hypothyroidism type: acquired Qualified Code(s): E03.9 - Hypothyroidism, unspecified (5) Atrial fibrillation Problem: Resolved Qualifiers: Atrial fibrillation type: paroxysmal Qualified Code(s): I48.0 - Paroxysmal atrial fibrillation Narrative: HR in the 60's to 130's. cardizem bolus agoven then followed by her Lopressor su trevizoh was doubled. HRin the 120's but BP in the 90's. Cardizem drip deferred, IV Digoxin given.
[2018-03-06] MEDS ORDERED: DIATRIZOATE MEGLUMINE, SODIUM 30 ML BTL PO ONE (14:02)
[2018-03-06] MEDS: DIGOXIN 0.25 MG/ML AMPUL IV SCH ×2 (14:27→21:10)
[2018-03-06] MEDS: metroNIDAZOLE/SODIUM CHLORIDE 500 MG/100 ML BAG IV SCH (21:15)
[2018-03-07] MEDS: DIGOXIN 0.25 MG/ML AMPUL IV SCH (02:31)
[2018-03-07] MEDS: CIPROFLOXACIN IN 5 % DEXTROSE 400 MG/200 ML BAG IV SCH ×2 (02:31→15:50)
[2018-03-07] MEDS: HYDROmorphone HCL 1 MG/ML DISP.SYRIN IV PRN ×4 (03:30→21:50)
[2018-03-07] MEDS: metroNIDAZOLE/SODIUM CHLORIDE 500 MG/100 ML BAG IV SCH ×3 (05:12→21:50)
[2018-03-07 05:56] LABS: Hematocrit 30.6 % (37.0-47.0); Hemoglobin 9.8 gm/dL (12.5-16.0); Mean Cell Volume 91.9 fl (78-100); Mean Corpuscular Hemoglobin 29.4 pg (27-31); Mean Platelet Volume 8.5 fl (8-12.5); Neutrophil # 9.3 K/mm3 (1.3-6.0); Neutrophil % 92.1 % (42-75.0); Platelet Count 438 K/mm3 (150-450); Red Blood Count 3.33 M/mm3 (4.2-5.4); Red Cell Distribution Width 14.2 % (11.5-14.0); White Blood Count 10.1 K/mm3 (4.0-10.5)
[2018-03-07 06:01] LABS: Anion Gap 10.4 mmol/L (6.8-13.8); BUN/Creatinine Ratio 26.2 (9.0-21.6); Calcium * 7.7 mg/dL (7.9-10.9); Carbon Dioxide 22.4 mmol/L (24-32.6); Potassium 3.8 mmol/L (3.4-4.6)
[2018-03-07] MEDS: LEVOTHYROXINE SODIUM 100 MCG TABLET PO SCH (06:23)
[2018-03-07] MEDS: PANTOPRAZOLE SODIUM 40 MG TABLET.EC PO SCH ×2 (06:23→17:22)
--- NOTE | 2018-03-07 07:29 | DS ---
Transfer Discharge Summary - Diagnosis(s)/Problems (1) Bowel obstruction Narrative: colon Problem: Acute (2) Abdominal pain Problem: Acute (3) UTI (urinary tract infection) Narrative: with emphysematous cystitis Problem: Acute (4) Hypothyroidism Problem: Chronic (5) Atrial fibrillation Narrative: converted spontaneously Problem: Resolved - Course Description of Stay: Verónica Yousif, is 72-year-old white female, patient of Dr. Massey, with past medical history of scleroderma, bowel obstructions, hyperlipidemia, hypothyroidism, Ayon's esophagus, who was admitted on 03/05/2018 because of abdominal pain. The patient was just recently discharged from our hospital for atrial fibrillation with rapid ventricular response last Wednesday. She converted spontaneously and was started on Eliquis. Since after her discharge, the patient said that she has not been having passage of gas and has had no bowel movement since then. She started having nausea and vomiting as well as abdominal pain and so she went to our emergency room. She was found to have abdominal gas pattern with air-fluid level consistent with possible bowel obstruction. She was then admitted for further evaluation and treatment. Because of the several CTS done with her prior admissions in the last year (about 4-5), this was deferred.The ED physician was able to Dr. Dutton who will again try to do decompression on her. Her appointment with Gastro[facility]ology, [facility] and [facility] is not until March. She underwent EGD with biopsies and colonoscopy to 1 m and decomprssion. A NGT tube was placed and connected to suction. Her follow up AXR showed questionable air under the diaphragm and a CTS of abdomen and plevis was done. It showed- IMPRESSION: 1. SMALL TO MODERATE RIGHT SIDED PLEURAL EFFUSION WITH RIGHT BASAL CONSOLIDATION, PROBABLE ATELECTASIS. FOLLOW-UP RECOMMENDED. 2. TINY LEFT PLEURAL EFFUSION. 3. MILDLY DISTENDED GALLBLADDER WITH ASSOCIATED CALCIFIED GALLSTONES. 4. 20% HIATAL HERNIA WITH MARKED DILATATION OF THE ESOPHAGUS AND GASTROESOPHAGEAL REFLUX. 5. DILATED PROXIMAL DUODENUM, WHICH IS MOST LIKELY RELATED TO THE DILATED BOWEL. 6. THE DESCENDING COLON IS DEFLECTED MEDIALLY INTO THE REGION OF THE MID MESENTERY, SUGGESTING A TRANSMESENTERIC HERNIA/INTERNAL HERNIA. THE BOWEL PROXIMAL TO THIS POINT IS DILATED AND THE BOWEL DISTAL TO THIS POINT IS DECOMPRESSED. 7. DIFFUSE GAS WITHIN THE BLADDER, WHICH MAY BE WITHIN THE BLADDER WALL. THIS CONCERNING FOR EMPHYSEMATOUS CYSTITIS. 8. SMALL TO MODERATE AMOUNT OF ABDOMINAL ASCITES AND A SMALL AMOUNT OF FREE FLUID WITHIN THE PELVIS. 9. RESULTS DISCUSSED WITH DR. DUTTON ON 03/06/2018 AT 1754 HOURS. She has not passed gas or stool till today and we will transfer the patient to a higher institution for definite intervention. I was able to talk to Dr. Rigoberto Hayward , triage doctor and the surgeon, Dr. Pedro Gannon and they are accepting the patient. She also has UTI and CTS showed emphysematous cystitis. She is growing klebsiella Pneumoniae and Proteus- sensitive to the IV Cipro we started on admission. Flagyl was also started yesterday. She also went into Afib with RVR for which she was IV Cardizem bolus and continue with her Atenolol. Due to her low BP we gave IV dogoxin. She converted spontaneously.Her WBC has been WNL. . Procedures Performed: see notes below - EGD with biopsies, colonoscopy to 1 m, decompression Procedures: EGD decompression - Results and Findings Results and Findings: Laboratory Results - last 24 hr 03/06/18 03/06/18 03/07/18 08:03 08:03 05:20 WBC 8.1 D 10.1 D RBC 3.66 L 3.33 L Hgb 10.8 L 9.8 L Hct 33.2 L 30.6 L MCV 90.7 91.9 MCH 29.5 29.4 MCHC 32.5 32.0 RDW 14.3 H 14.2 H Plt Count 448 438 MPV 8.4 8.5 Immature Gran % (Auto) 0.50 H 0.30 Immature Gran # (Auto) 0.04 H 0.03 Neutrophils % 87.2 H 92.1 H Lymphocytes % 8.6 L 3.9 L Monocytes % 3.6 3.6 Eosinophils % 0.1 0.0 Basophils % 0.0 0.1 Nucleated RBC % 0.0 0.0 Neutrophils # 7.1 H 9.3 H Lymphocytes # 0.70 L 0.40 L Monocytes # 0.3 0.4 Eosinophils # 0.0 0.0 Absolute Basophils 0.0 0.0 Sodium 133 Plasma Sodium 133 Potassium 3.0 L Chloride 102 Carbon Dioxide 21.7 L Anion Gap 12.3 BUN 32 H Creatinine 0.57 Est GFR (Non-Af Amer) 111 D BUN/Creatinine Ratio 56.1 H Random Glucose 96 Calcium 7.6 L 03/07/18 05:20 WBC RBC Hgb Hct MCV MCH MCHC RDW Plt Count MPV Immature Gran % (Auto) Immature Gran # (Auto) Neutrophils % Lymphocytes % Monocytes % Eosinophils % Basophils % Nucleated RBC % Neutrophils # Lymphocytes # Monocytes # Eosinophils # Absolute Basophils Sodium 134 Plasma Sodium 135 Potassium 3.8 D Chloride 105 Carbon Dioxide 22.4 L Anion Gap 10.4 BUN 16 Creatinine 0.61 Est GFR (Non-Af Amer) 102 BUN/Creatinine Ratio 26.2 H Random Glucose 133 H D Calcium 7.7 L - Medications Medications: Active Medications Acetaminophen (Tylenol) 650 mg PO Q6H PRN PRN Reason: Mild pain (pain scale 1-3) Stop: 04/04/18 20:11 Last Admin: 03/06/18 07:11 Dose: 650 mg Amlodipine Besylate (Norvasc) 5 mg PO DAILY [facility] Stop: 04/05/18 09:01 Last Admin: 03/06/18 08:07 Dose: 5 mg Apixaban (Eliquis) 5 mg PO BID [facility] Stop: 04/04/18 21:01 Last Admin: 03/06/18 21:15 Dose: 5 mg Aspirin (Aspirin Chewable) 81 mg PO DAILY [facility] Stop: 04/05/18 09:01 Last Admin: 03/06/18 08:05 Dose: 81 mg Hydromorphone HCl (Dilaudid) 1 mg IV Q6H PRN PRN Reason: Pain Stop: 04/05/18 07:32 Last Admin: 03/07/18 03:30 Dose: 1 mg Ciprofloxacin/Dextrose (Cipro) 400 mg in 200 mls @ 200 mls/hr IV Q12H [facility]; Protocol Stop: 04/04/18 15:16 Last Admin: 03/07/18 02:31 Dose: 200 mls/hr Potassium Chloride 20 meq/ (Dextrose/Sodium Chloride) 1,000 mls @ 100 mls/hr IV .Q10H [facility] Stop: 04/05/18 07:46 Last Admin: 03/06/18 23:25 Dose: 100 mls/hr Metronidazole (Flagyl) 500 mg in 100 mls @ 100 mls/hr IV Q8H [facility]; Protocol Stop: 04/05/18 21:01 Last Admin: 03/07/18 05:12 Dose: 100 mls/hr Levothyroxine Sodium (Synthroid) 100 mcg PO DAILY@0630 [facility] Stop: 04/05/18 06:31 Last Admin: 03/07/18 06:23 Dose: 100 mcg Metoprolol Tartrate (Lopressor) 12.5 mg PO Q12H [facility] Stop: 04/04/18 20:16 Last Admin: 03/06/18 21:13 Dose: 12.5 mg Mycophenolate Mofetil (Cellcept) 1,000 mg PO BID [facility] Stop: 04/04/18 21:01 Last Admin: 03/06/18 21:14 Dose: 1,000 mg Betamethasone/Propylene Glyc [ Diprolene 0.05% Ointment] 15 gm TP BID [facility] Stop: 04/04/18 21:01 Last Admin: 03/06/18 21:14 Dose: Not Given [place] Hcl 5 Mg 5 mg PO TID [facility] Stop: 04/05/18 09:01 Last Admin: 03/06/18 16:44 Dose: Not Given Oxybutynin Chloride (Ditropan) 10 mg PO DAILY [facility] Stop: 04/05/18 09:01 Last Admin: 03/06/18 08:06 Dose: 10 mg Pantoprazole Sodium (Protonix) 40 mg PO BIDAC [facility] Stop: 04/05/18 07:01 Last Admin: 03/07/18 06:23 Dose: 40 mg Potassium Chloride (K-Dur) 40 meq PO DAILY [facility] Stop: 04/05/18 09:01 Last Admin: 03/06/18 08:06 Dose: 40 meq Discontinued Medications Diatrizoate Meglum/Diatrizoate Sod (Gastrografin Solution) 30 ml PO ONCE ONE Stop: 03/06/18 14:03 Last Admin: 03/06/18 14:19 Dose: 30 ml Digoxin (Lanoxin) 0.125 mg IV Q6H [facility] Stop: 04/05/18 07:46 Last Admin: 03/06/18 08:37 Dose: Not Given Digoxin (Lanoxin) 0.125 mg IV Q6H [facility] Stop: 03/07/18 08:01 Last Admin: 03/07/18 02:31 Dose: 0.125 mg Digoxin (Lanoxin) 0.5 mg IV ONCE ONE Stop: 03/06/18 08:01 Last Admin: 03/06/18 08:19 Dose: 0.5 mg Diltiazem HCl (Cardizem) 15 mg IV ONCE ONE Stop: 03/05/18 22:04 Last Admin: 03/05/18 22:26 Dose: 15 mg Hydromorphone HCl (Dilaudid) 0.5 mg IV ONCE ONE Stop: 03/05/18 12:35 Last Admin: 03/05/18 13:44 Dose: 0.5 mg Hydroxychloroquine Sulfate (Plaquenil) 300 mg PO DAILY [facility] Stop: 04/05/18 09:01 Last Admin: 03/06/18 08:06 Dose: 300 mg Sodium Chloride (Sodium Chloride 0.9%) 1,000 mls @ 125 mls/hr IV .Q8H ONE Stop: 03/05/18 22:13 Last Infusion: 03/06/18 08:05 Dose: Infused Potassium Chloride/Water (Kcl 10 Meq/100 Ml Piggyback) 100 mls @ 100 mls/hr IV Q1H [facility] Stop: 03/06/18 11:14 Last Infusion: 03/06/18 11:25 Dose: Infused Levothyroxine Sodium (Synthroid) 100 mcg PO 0630 [facility] Stop: 04/05/18 06:31 Last Admin: 03/06/18 08:05 Dose: 100 mcg Metoprolol Tartrate (Lopressor) 25 mg PO DAILY ONE Stop: 03/05/18 23:31 Last Admin: 03/05/18 23:41 Dose: 25 mg - Disposition Disposition: Short Term Hospital Inpatient Condition: Serious Discharge Date: 03/07/18 Discharge Time: 11:05
[2018-03-07] MEDS: METOPROLOL TARTRATE 25 MG TABLET PO SCH ×2 (08:07→21:49)
[2018-03-07] MEDS: ASPIRIN 81 MG TAB.CHEW PO SCH (08:07)
[2018-03-07] MEDS: MYCOPHENOLATE MOFETIL 500 MG TABLET PO SCH ×2 (08:07→21:49)
[2018-03-07] MEDS: amLODIPine BESYLATE 5 MG TABLET PO SCH (08:08)
[2018-03-07] MEDS: POTASSIUM CHLORIDE 20 MEQ TABLET.SA PO SCH (08:08)
[2018-03-07] MEDS: OXYBUTYNIN CHLORIDE 5 MG TABLET PO SCH (08:08)
[2018-03-07] MEDS: APIXABAN 5 MG TABLET PO SCH ×2 (08:08→21:50)
[2018-03-07] MEDS: HYDROXYCHLOROQUINE SULFATE 200 MG TABLET PO SCH (08:08)
[2018-03-07] MEDS: BETAMETHASONE TP SCH ×2 (08:09→22:22)
[2018-03-07] MEDS: PROPYLENE GLYC TP SCH ×2 (08:09→22:22)
[2018-03-07] MEDS: Pilocarpine Hcl 5 MG PO SCH ×3 (08:09→17:21)
[2018-03-07] MEDS: POTASSIUM CHLORIDE 20 MEQ in DEXTROSE 5%-NORMAL SALINE 990 ML IV SCH (11:46)
[2018-03-08] MEDS: POTASSIUM CHLORIDE 20 MEQ in DEXTROSE 5%-NORMAL SALINE 990 ML IV SCH ×3 (01:02→12:17)
[2018-03-08] MEDS: CIPROFLOXACIN IN 5 % DEXTROSE 400 MG/200 ML BAG IV SCH ×2 (02:41→15:10)
[2018-03-08] MEDS: metroNIDAZOLE/SODIUM CHLORIDE 500 MG/100 ML BAG IV SCH ×2 (04:01→12:18)
[2018-03-08] MEDS: HYDROmorphone HCL 1 MG/ML DISP.SYRIN IV PRN (06:58)
[2018-03-08] MEDS: LEVOTHYROXINE SODIUM 100 MCG TABLET PO SCH (07:15)
[2018-03-08] MEDS: PANTOPRAZOLE SODIUM 40 MG TABLET.EC PO SCH (07:15)
[2018-03-08] MEDS: METOPROLOL TARTRATE 25 MG TABLET PO SCH (07:16)
[2018-03-08 08:10] LABS: Hemoglobin 10.4 gm/dL (12.5-16.0); Mean Cell Volume 92.8 fl (78-100); Mean Corpuscular Hemoglobin 30.1 pg (27-31); Mean Corpuscular Hgb Conc 32.5 g/dl (32-36); Mean Platelet Volume 8.5 fl (8-12.5); Neutrophil # 15.5 K/mm3 (1.3-6.0); Platelet Count 417 K/mm3 (150-450); Red Blood Count 3.45 M/mm3 (4.2-5.4); Red Cell Distribution Width 14.7 % (11.5-14.0); White Blood Count 16.6 K/mm3 (4.0-10.5)
[2018-03-08 08:23] LABS: Anion Gap 9.9 mmol/L (6.8-13.8); BUN/Creatinine Ratio 18.8 (9.0-21.6); Calcium * 7.8 mg/dL (7.9-10.9); Carbon Dioxide 22.7 mmol/L (24-32.6); Estimated Creat Clear 61.9; Potassium 4.6 mmol/L (3.4-4.6)
[2018-03-08] MEDS: ASPIRIN 81 MG TAB.CHEW PO SCH (08:26)
[2018-03-08] MEDS: POTASSIUM CHLORIDE 20 MEQ TABLET.SA PO SCH (08:27)
[2018-03-08] MEDS: OXYBUTYNIN CHLORIDE 5 MG TABLET PO SCH (08:27)
[2018-03-08] MEDS: APIXABAN 5 MG TABLET PO SCH (08:27)
[2018-03-08] MEDS: MYCOPHENOLATE MOFETIL 500 MG TABLET PO SCH (08:27)
[2018-03-08] MEDS: amLODIPine BESYLATE 5 MG TABLET PO SCH (08:28)
[2018-03-08] MEDS: HYDROXYCHLOROQUINE SULFATE 200 MG TABLET PO SCH (08:28)
--- NOTE | 2018-03-08 08:47 | PN ---
Progess Note - Interim Date: 03/08/18 Time: 08:45 Narrative: 03/08/18 08:45 Patient afebrile. WBC up to 16. awaiting bed availabilty in [facility]. Will start TPN- refer to sample puller/broadcast correspondent and Anesthesia for PIC line.
[2018-03-08] MEDS: BETAMETHASONE TP SCH (08:52)
[2018-03-08] MEDS: PROPYLENE GLYC TP SCH (08:52)
[2018-03-08] MEDS: Pilocarpine Hcl 5 MG PO SCH ×2 (08:53→12:14)
[2018-03-08] MEDS ORDERED: FAT EMULSIONS 50 G in Premix Bag 1 BAG IV SCH (10:30)
[2018-03-08] MEDS ORDERED: POTASSIUM PHOS,M-BASIC-D-BASIC 18 MM, ELECTROLYTE SOLUTION,INJ 20 ML, MULTIVIT INFUSN,A... IV SCH ×6 (10:30)
[2018-03-08 11:05] LABS: Magnesium 1.3 mg/dL (1.2-2.8); Phosphorus 1.8 mg/dL (2.2-4.2)
[2018-03-08] MEDS: INSULIN LISPRO 100 UNITS/ML VIAL SC SCH ×2 (11:49→15:05)
[2018-03-08] MEDS ORDERED: HYDROmorphone HCL 1 MG/ML DISP.SYRIN IV PRN (11:50)
--- NOTE | 2018-03-08 13:42 | DS ---
Transfer Discharge Summary - Diagnosis(s)/Problems (1) Bowel obstruction Narrative: transmesenteric hernia/Internal hernia- descending colon Problem: Acute (2) Abdominal pain Problem: Acute (3) UTI (urinary tract infection) Narrative: K. Pneumoniae and E.Coli Problem: Acute (4) Hypothyroidism Problem: Chronic (5) Atrial fibrillation Problem: Resolved (6) Malnutrition Narrative: attempted PIC line today for TPN failed. will need a CVP line . Problem: Acute - Course Description of Stay: Verónica Yousif, is 72-year-old white female, patient of Dr. Massey, with past medical history of scleroderma, bowel obstructions, hyperlipidemia, hypothyroidism, Ayon's esophagus, who was admitted on 03/05/2018 because of abdominal pain. The patient was just recently discharged from our hospital for atrial fibrillation with rapid ventricular response last Wednesday. She converted spontaneously and was started on Eliquis. Since after her discharge, the patient said that she has not been having passage of gas and has had no bowel movement since then. She started having nausea and vomiting as well as abdominal pain and so she went to our emergency room. She was found to have abdominal gas pattern with air-fluid level consistent with possible bowel obstruction. She was then admitted for further evaluation and treatment. Because of the several CTS done with her prior admissions in the last year (about 4-5), this was deferred.The ED physician was able to Dr. Dutton who will again try to do decompression on her. Her appointment with [facility] is not until March. She underwent EGD with biopsies and colonoscopy to 1 m and decomprssion. A NGT tube was placed and connected to suction. Her follow up AXR showed questionable air under the diaphragm and a CTS of abdomen and plevis was done. It showed- IMPRESSION: 1. SMALL TO MODERATE RIGHT SIDED PLEURAL EFFUSION WITH RIGHT BASAL CONSOLIDATION, PROBABLE ATELECTASIS. FOLLOW-UP RECOMMENDED. 2. TINY LEFT PLEURAL EFFUSION. 3. MILDLY DISTENDED GALLBLADDER WITH ASSOCIATED CALCIFIED GALLSTONES. 4. 20% HIATAL HERNIA WITH MARKED DILATATION OF THE ESOPHAGUS AND GASTROESOPHAGEAL REFLUX. 5. DILATED PROXIMAL DUODENUM, WHICH IS MOST LIKELY RELATED TO THE DILATED BOWEL. 6. THE DESCENDING COLON IS DEFLECTED MEDIALLY INTO THE REGION OF THE MID MES ENTERY, SUGGESTING A TRANSMESENTERIC HERNIA/INTERNAL HERNIA. THE BOWEL PROXIMAL TO THIS POINT IS DILATED AND THE BOWEL DISTAL TO THIS POINT IS DECOMPRESSED. 7. DIFFUSE GAS WITHIN THE BLADDER, WHICH MAY BE WITHIN THE BLADDER WALL. THIS CONCERNING FOR EMPHYSEMATOUS CYSTITIS. 8. SMALL TO MODERATE AMOUNT OF ABDOMINAL ASCITES AND A SMALL AMOUNT OF FREE FLUID WITHIN THE PELVIS. 9. RESULTS DISCUSSED WITH DR. DUTTON ON 03/06/2018 AT 1754 HOURS. She still has not passed gas or stool till today and we will transfer the patient to a higher institution for definite intervention. I was able to talk to Dr. Rigoberto Hayward , triage doctor and the surgeon, Dr. Pedro Costello and they are accepting the patient. She also has UTI and CTS showed emphysematous cystitis. She is growing klebsiella Pneumoniae and Proteus- sensitive to the IV Cipro we started on admission. Flagyl was also started on 03/06/18. . She also went into Afib with RVR afre her proceedure for which she was IV Cardizem bolus and continue with her Atenolol. Due to her low BP we gave IV digoxin. She converted spontaneously. PIC line insertion was attempted for TPN but was unsuccesful. Her [place] [id number]. She also has more abdominal pain and her dilaudid increase to q 4 hours. She is now going to be transferred to [facility] ER. Dr. Hayward is the ER doctor. Procedures Performed: see notes below - EGD with Colonoscopy up to 1 m with decompression - Results and Findings Results and Findings: Laboratory Results - last 24 hr 03/05/18 03/08/18 03/08/18 17:30 06:04 06:04 WBC RBC Hgb Hct MCV MCH MCHC RDW Plt Count MPV Immature Gran % (Auto) Immature Gran # (Auto) Neutrophils % Lymphocytes % Monocytes % Eosinophils % Basophils % Nucleated RBC % Neutrophils # Lymphocytes # Monocytes # Eosinophils # Absolute Basophils Sodium 134 Plasma Sodium 134 Potassium 4.6 D Chloride 106 Carbon Dioxide 22.7 L Anion Gap 9.9 BUN 12 Creatinine 0.64 Est GFR (Non-Af Amer) 97 BUN/Creatinine Ratio 18.8 Random Glucose 117 H Calcium 7.8 L Phosphorus 1.8 L D Magnesium 1.3 Pathology Specimen Spec to path 03/08/18 08:00 WBC 16.6 H D RBC 3.45 L Hgb 10.4 L Hct 32.0 L MCV 92.8 MCH 30.1 MCHC 32.5 RDW 14.7 H Plt Count 417 MPV 8.5 Immature Gran % (Auto) 1.00 H Immature Gran # (Auto) 0.16 H Neutrophils % 93.0 H Lymphocytes % 2.7 L Monocytes % 3.2 Eosinophils % 0.0 Basophils % 0.1 Nucleated RBC % 0.0 Neutrophils # 15.5 H Lymphocytes # 0.45 L Monocytes # 0.5 Eosinophils # 0.0 Absolute Basophils 0.0 Sodium Plasma Sodium Potassium Chloride Carbon Dioxide Anion Gap BUN Creatinine Est GFR (Non-Af Amer) BUN/Creatinine Ratio Random Glucose Calcium Phosphorus Magnesium Pathology Specimen - Medications Medications: Active Medications Acetaminophen (Tylenol) 650 mg PO Q6H PRN PRN Reason: Mild pain (pain scale 1-3) Stop: 04/04/18 20:11 Last Admin: 03/06/18 07:11 Dose: 650 mg Amlodipine Besylate (Norvasc) 5 mg PO DAILY [facility] Stop: 04/05/18 09:01 Last Admin: 03/08/18 08:28 Dose: 5 mg Apixaban (Eliquis) 5 mg PO BID [facility] Stop: 04/04/18 21:01 Last Admin: 03/08/18 08:27 Dose: 5 mg Aspirin (Aspirin Chewable) 81 mg PO DAILY [facility] Stop: 04/05/18 09:01 Last Admin: 03/08/18 08:26 Dose: 81 mg Hydromorphone HCl (Dilaudid) 1 mg IV Q4H PRN PRN Reason: Pain Stop: 04/07/18 11:51 Last Admin: 03/08/18 12:11 Dose: 1 mg Hydroxychloroquine Sulfate (Plaquenil) 200 mg PO DAILY [facility] Stop: 04/06/18 09:01 Last Admin: 03/08/18 08:28 Dose: 200 mg Ciprofloxacin/Dextrose (Cipro) 400 mg in 200 mls @ 200 mls/hr IV Q12H [facility]; Protocol Stop: 04/04/18 15:16 Last Infusion: 03/08/18 03:41 Dose: Infused Potassium Chloride 20 meq/ (Dextrose/Sodium Chloride) 1,000 mls @ 100 mls/hr IV .Q10H [facility] Stop: 04/05/18 07:46 Last Admin: 03/08/18 12:17 Dose: 100 mls/hr Metronidazole (Flagyl) 500 mg in 100 mls @ 100 mls/hr IV Q8H [facility]; Protocol Stop: 04/05/18 21:01 Last Admin: 03/08/18 12:18 Dose: 100 mls/hr Insulin Human Lispro (Humalog) 0 units SC Q4H [facility]; Protocol Stop: 03/09/18 06:31 Last Admin: 03/08/18 11:49 Dose: Not Given Levothyroxine Sodium (Synthroid) 100 mcg PO DAILY@0630 [facility] Stop: 04/05/18 06:31 Last Admin: 03/08/18 07:15 Dose: 100 mcg Metoprolol Tartrate (Lopressor) 12.5 mg PO Q12H [facility] Stop: 04/04/18 20:16 Last Admin: 03/08/18 07:16 Dose: 12.5 mg Mycophenolate Mofetil (Cellcept) 1,000 mg PO BID [facility] Stop: 04/04/18 21:01 Last Admin: 03/08/18 08:27 Dose: 1,000 mg Betamethasone/Propylene Glyc [ Diprolene 0.05% Ointment] 15 gm TP BID [facility] Stop: 04/04/18 21:01 Last Admin: 03/08/18 08:52 Dose: Not Given Pilocarpine Hcl 5 Mg 5 mg PO TID [facility] Stop: 04/05/18 09:01 Last Admin: 03/08/18 12:14 Dose: Not Given Oxybutynin Chloride (Ditropan) 10 mg PO DAILY [facility] Stop: 04/05/18 09:01 Last Admin: 03/08/18 08:27 Dose: 10 mg Pantoprazole Sodium (Protonix) 40 mg PO BIDAC [facility] Stop: 04/05/18 07:01 Last Admin: 03/08/18 07:15 Dose: 40 mg Potassium Chloride (K-Dur) 40 meq PO DAILY [facility] Stop: 04/05/18 09:01 Last Admin: 03/08/18 08:27 Dose: 40 meq Discontinued Medications Diatrizoate Meglum/Diatrizoate Sod (Gastrografin Solution) 30 ml PO ONCE ONE Stop: 03/06/18 14:03 Last Admin: 03/06/18 14:19 Dose: 30 ml Digoxin (Lanoxin) 0.125 mg IV Q6H [facility] Stop: 04/05/18 07:46 Last Admin: 03/06/18 08:37 Dose: Not Given Digoxin (Lanoxin) 0.125 mg IV Q6H [facility] Stop: 03/07/18 08:01 Last Admin: 03/07/18 02:31 Dose: 0.125 mg Digoxin (Lanoxin) 0.5 mg IV ONCE ONE Stop: 03/06/18 08:01 Last Admin: 03/06/18 08:19 Dose: 0.5 mg Diltiazem HCl (Cardizem) 15 mg IV ONCE ONE Stop: 03/05/18 22:04 Last Admin: 03/05/18 22:26 Dose: 15 mg Hydromorphone HCl (Dilaudid) 0.5 mg IV ONCE ONE Stop: 03/05/18 12:35 Last Admin: 03/05/18 13:44 Dose: 0.5 mg Hydromorphone HCl (Dilaudid) 1 mg IV Q6H PRN PRN Reason: Pain Stop: 04/05/18 07:32 Last Admin: 03/08/18 06:58 Dose: 1 mg Hydroxychloroquine Sulfate (Plaquenil) 300 mg PO DAILY [facility] Stop: 04/05/18 09:01 Last Admin: 03/06/18 08:06 Dose: 300 mg Sodium Chloride (Sodium Chloride 0.9%) 1,000 mls @ 125 mls/hr IV .Q8H [facility] Stop: 03/05/18 22:13 Last Infusion: 03/06/18 08:05 Dose: Infused Potassium Chloride/Water (Kcl 10 Meq/100 Ml Piggyback) 100 mls @ 100 mls/hr IV Q1H [facility] Stop: 03/06/18 11:14 Last Infusion: 03/06/18 11:25 Dose: Infused Levothyroxine Sodium (Synthroid) 100 mcg PO 0630 [facility] Stop: 04/05/18 06:31 Last Admin: 03/06/18 08:05 Dose: 100 mcg Metoprolol Tartrate (Lopressor) 25 mg PO DAILY [facility] Stop: 03/05/18 23:31 Last Admin: 03/05/18 23:41 Dose: 25 mg - Disposition Disposition: Short Term Hospital Inpatient Condition: Serious Discharge Date: 03/08/18 Discharge Time: 15:35
--- NOTE | 2018-03-08 15:21 | ANES ---
Anesthesia Procedure Note Procedure Note: ANESTHESIA PROCEDURE NOTE Date of procedure: 03/08/2018. Time of procedure:[]. 1430 Performed by: Dylan Nevarez CRNA [employer] Developer: [] None . Preprocedure diagnosis: []. Need for long-term IV access Post procedure diagnosis: Same. Procedure:[] PICC line insertion Indications: []. Need for central line for fluids and parenteral nutrition Findings: [] Ultrasound utilized in an attempt to locate a vein in patient's right antecubital fossa. This was unsuccessful. The patient currently has an 18-gauge Angiocath IV in her left antecubital fossa which was left in place because it is currently her only source for venous access. PICC line attempt aborted. EBL: Minimal. Fluids: N/A. Specimen: N/A. Post procedure condition: The patient tolerated the procedure well. No complications were noted. Thank you for this consultation Dylan Nevarez CRNA
[2018-03-08 15:58] VITALS: BP 125/64
[2018-03-09] MEDS ORDERED: POTASSIUM PHOS,M-BASIC-D-BASIC 18 MM, ELECTROLYTE SOLUTION,INJ 20 ML, MULTIVIT INFUSN,A... IV SCH ×6 (10:22)
[2018-03-09] MEDS ORDERED: INSULIN LISPRO 100 UNITS/ML VIAL SC SCH (10:22)
== END 2018-03-08 16:40 | disposition short-term general hospital (02) | DRG 389 ==
LOC: MS 11:39 → ER 11:39
PROVIDERS: ADMIT Internal Medicine; ATTEND Internal Medicine
DX: Z80.9 Family history of malignant neoplasm, unspecified; Z68.1 Body mass index [BMI] 19.9 or less, adult; M34.1 CR(E)ST syndrome; M34.9 Systemic sclerosis, unspecified; E78.5 Hyperlipidemia, unspecified; D64.9 Anemia, unspecified; E03.9 Hypothyroidism, unspecified; I25.10 Atherosclerotic heart disease of native coronary artery without angina pectoris; K31.9 Disease of stomach and duodenum, unspecified; J90 Pleural effusion, not elsewhere classified; K21.9 Gastro-esophageal reflux disease without esophagitis; I73.00 Raynaud's syndrome without gangrene; Z79.82 Long term (current) use of aspirin; K46.0 Unspecified abdominal hernia with obstruction, without gangrene; K56.609 Unspecified intestinal obstruction, unspecified as to partial versus complete obstruction; F32.9 Major depressive disorder, single episode, unspecified; Z82.49 Family history of ischemic heart disease and other diseases of the circulatory system; Z79.01 Long term (current) use of anticoagulants; Z85.3 Personal history of malignant neoplasm of breast; E46 Unspecified protein-calorie malnutrition; B96.4 Proteus (mirabilis) (morganii) as the cause of diseases classified elsewhere; B96.20 Unspecified Escherichia coli [E. coli] as the cause of diseases classified elsewhere; I48.91 Unspecified atrial fibrillation; N30.80 Other cystitis without hematuria; Z87.891 Personal history of nicotine dependence; K44.9 Diaphragmatic hernia without obstruction or gangrene; Z88.1 Allergy status to other antibiotic agents; K52.9 Noninfective gastroenteritis and colitis, unspecified; E85.9 Amyloidosis, unspecified; B96.1 Klebsiella pneumoniae [K. pneumoniae] as the cause of diseases classified elsewhere
CPT/HCPCS: 36415; 71010; 71045; 74019; 74020; 74177; 80048; 80053; 81001; 83735; 84100; 84484; 85025; 87077; 87081; 87086; 87186; 88305; 88312; 88313; 93005; 96374; 99284